=== PATIENT | male | born 1980 | race Caucasian/White ===

== ENCOUNTER 2021-09-30 11:46 | Emergency (ER) | payer SELFPAY ==
[2021-09-30 11:59] VITALS: BP 186/97; PULSE 76; RESP 20; TEMP 36.9; O2SAT 99
[2021-09-30 12:36] VITALS: BP 160/90
--- NOTE | 2021-09-30 12:39 | ED.GENADULT ---
HPI - General Adult General Chief complaint: Back Pain/Injury Stated complaint: Lower Back Pain Source: patient Mode of arrival: ambulatory Limitations: no limitations History of Present Illness HPI narrative: Patient is a 41-year-old morbidly obese male who presents to the urgent care via POV for evaluation of bilateral low back pain that has been present for approximately 4 weeks. He states his back pain has been progressively worsening. He states his back pain is now constant he reports his back pain as, spasms and shooting . Denies taking OTC meds for symptoms. Standing provides some relief. Everything worsens pain. Current pain is 10 on 10 on a pain scale. Of note, patient reports his blood pressure is normal on antihypertensives. He states he took his antihypertensive 1 hour prior to arrival. Related Data Home Medications Medication Instructions Recorded Confirmed lisinopril 5 mg PO DAILY 09/30/21 09/30/21 Allergies Allergy/AdvReac Type Severity Reaction Status Date / Time No Known Allergies Allergy Verified 09/30/21 12:11 Review of Systems Review of Systems: Denies injury. Pertinent negatives fever, chills, sweats, change in appetite, poor p.o. intake, malaise, headache, stiffness, spasms, abdominal pain, nausea, vomiting, diarrhea, constipation, dysuria, urinary frequency/urgency, hematuria, urinary retention, flank pain, bladder/bowel incontinence, skin color changes, deformity, numbness, tingling, loss of sensation, decreased ROM, difficulty with ambulation/coordination, chest pain, heart palpitations/murmurs, and sob. PMFSH Past Medical History Medical History (Updated 09/30/21 @ 12:48 by Mike Rawls, [facility], ) Arthritis Hypertension Low back pain Comments I have reviewed and agree with the patient's past medical, surgical, social, and family hx as documented by the RN. There is no relevant family history pertinent to the presenting complaint. Exam Narrative: GENERAL: Well-appearing, well-nourished, and in no acute distress. HEAD: Normocephalic, atraumatic. NECK: Supple. No lymphadenopathy or nuchal rigidity. No evidence of pain, decreased ROM, or deformity. CHEST: Lung sounds are clear to auscultation in bilateral lung swain. No respiratory distress. HEART: Regular rate and rhythm. No murmur heard. Normal peripheral pulses. ABDOMEN: Soft, nontender, nondistended, normal active bowel sounds in all quadrants. No guarding. No rebound tenderness. No pulsatile or palpable abdominal mass(es). No CVAT EXTREMITIES: Normal range of motion. No edema. BACK: Full ROM. Moderate pain is palpated in bilateral low back. Pain worsens with all movement. No evidence of deformity, spasm, mass, spinal tenderness, or swelling. Unable to perform SLR test due to pain. Ambulates hunched over. Gait is slowed. SKIN: Warm, clammy, no rash. No skin color changes. Excellent turgor. NEURO: No focal deficits. Alert and oriented x3. Course Course Level of Care: Express Care Visit ([employer] SUR[employer]YOR [employer]IL WELL DIRECTIONAL REVIEWED. NOTHING ON FILE. TOKEN NON-FUNCTIONAL WRITTEN SCRIPT FOR DIAZEPAM 5 MG TAB: TAKE 1 TAB PO TID PRN BACK PAIN/SPASM DISP. 15 0RF RN COPIED FOR CHART ) Vital Signs Vital signs: Vital Signs Temperature 98.5 F 09/30/21 11:59 Pulse Rate 76 09/30/21 11:59 Respiratory Rate 20 09/30/21 11:59 Blood Pressure 186/97 H 09/30/21 11:59 Pulse Oximetry 99 09/30/21 11:59 Temperature 98.5 F 09/30/21 11:59 Pulse Rate 76 09/30/21 11:59 Respiratory Rate 20 09/30/21 11:59 Blood Pressure 160/90 H 09/30/21 12:36 Pulse Oximetry 99 09/30/21 11:59 Due to an elevated blood pressure, I had a detailed discussion with the patient and/or guardian regarding the need for follow-up with their primary care provider within the next 3-4 days. Patient verbalized understanding and agreed. Medical Decision Making Differential Diagnosis Differential Diagnosis: Spinal stenosis, radiculopathy/sciatica,cauda equina syndr
== END 2021-09-30 12:56 | disposition home or self-care (01) ==
PROVIDERS: Emergency Provider Nurse Practitioner Family; PCP Family Medicine
DX: M54.50 Low back pain, unspecified (principal); M19.90 Unspecified osteoarthritis, unspecified site; I10 Essential (primary) hypertension
CPT/HCPCS: 99212; G0463

== ENCOUNTER 2021-10-24 05:22 | Emergency (ER) | payer SELFPAY ==
[2021-10-24 05:21] VITALS: BP 202/103; PULSE 85; RESP 19; TEMP 36.8; O2SAT 100
--- NOTE | 2021-10-24 05:53 | ED.EXTPRO ---
HPI - Extremity Problem General Chief complaint: Extremity Problem,Nontraumatic Stated complaint: left leg pain Time Seen by Provider: 10/24/21 05:24 Source: patient Mode of arrival: EMS Limitations: no limitations History of Present Illness HPI Narrative: Patient is a 41-year-old male complaining of it is my sciatic nerve described as left lower back, left buttocks pain, sharp, 10 out of [address] to the foot. Patient states that he was seen at another ER for the same complaint 3 weeks ago. Patient also states that he had a similar episode last year and had to go to physical therapy which resolved the symptoms, has not had a flareup since last month. Patient denies any recent injury. Patient denies any weakness, numbness, incontinence, fever or chills. Patient denies any chest pain, abdominal pain, urinary symptoms, nausea or vomiting. Related Data Home Medications Medication Instructions Recorded Confirmed sulfamethoxazole-trimethoprim 1 tablet PO Q12H 08/29/19 08/29/19 [Bactrim DS] lisinopril 5 mg PO DAILY 09/30/21 09/30/21 naproxen 375 mg PO BID 10/24/21 prednisone 10/24/21 Allergies Allergy/AdvReac Type Severity Reaction Status Date / Time No Known Allergies Allergy Verified 10/24/21 05:26 Review of Systems Review of Systems: All systems reviewed & are unremarkable except as noted in HPI and below Constitutional: Constitutional: Denies body ache(s), Denies chills, Denies excessive sweating, Denies fatigue, Denies fever(s), Denies headache(s), Denies lethargy, Denies malaise, Denies weakness and Denies weight loss Eyes: Eyes: Denies blurry vision, Denies change in vision and Denies loss of vision ENT: Denies dizziness, Denies ear discharge, Denies headache(s), Denies lip swelling, Denies epistaxis, Denies nasal congestion, Denies neck pain, Denies throat swelling and Denies tongue swelling Cardiovascular: Cardiovascular: Denies chest pain, Denies chest pain at rest, Denies chest pain with activity, Denies diaphoresis, Denies rapid heart rate, Denies edema, Denies irregular heart rhythm, Denies lightheadedness, Denies palpitations, Denies dyspnea and Denies dyspnea on exertion Respiratory: Respiratory: Denies chest congestion, Denies cough, Denies hemoptysis, Denies dyspnea and Denies dyspnea on exertion Gastrointestinal: Gastrointestinal: Denies abdominal pain, Denies melena, Denies hematochezia, Denies diarrhea, Denies nausea, Denies vomiting and Denies hematemesis Musculoskeletal: Musculoskeletal: Denies abnormal gait, Denies deformity, Denies joint swelling, Denies limited range of motion, Denies neck pain and Denies numbness Neurologic: Denies Abnormal speech present, Denies abnormal gait, Denies confusion, Denies dizziness, Denies headache(s), Denies focal weakness, Denies loss of vision, Denies numbness, Denies Other visual disturbances, Denies Sensory deficit (Neuro) and Denies weakness Psychiatric: Psychiatric: Denies confusion, Denies depression, Denies auditory hallucinations, Denies homicidal ideation and Denies suicidal ideation Endocrine: Endocrine: Denies cold intolerance, Denies excessive sweating, Denies fatigue, Denies heat intolerance and Denies palpitations Hematologic/Lymphatic: Hematologic/Lymphatic: Denies easy bleeding and Denies easy bruising Allergic/Immunologic: Allergic/Immunologic: Denies lip swelling, Denies throat swelling and Denies tongue swelling PMFSH Past Medical History Medical History Arthritis Hypertension Low back pain Exam Const: General: cooperative, comfortable, no acute distress, well developed, alert and awake; No confusion Nutritional Appearance: obese morbidly obese Orientation/consciousness: oriented to person, oriented to place, oriented to time, patient oriented x3 and No confusion Limitations: no limitations HENMT: Head: normal to inspection, normocephalic and atraumatic Ears:
[2021-10-24] MEDS: HYDROcodone/acetaminophen (*CRX) 5-325 MG TABLET 1 TAB PO (06:25)
[2021-10-24] MEDS: CYCLOBENZAPRINE HCL 10 MG TABLET PO (06:26)
[2021-10-24] MEDS: KETOROLAC 30 MG/ML VIAL (*BKC) IM (06:27)
[2021-10-24 06:45] VITALS: BP 183/95; PULSE 77; RESP 13; O2SAT 99
[2021-10-24] MEDS: HYDROmorphone HCL INJ (*CRX) 1 MG/ML SYR IM (07:10)
[2021-10-24] MEDS: diazePAM INJ (*CRX) 10 MG/2 ML SYRINGE 5 MG IM (07:10)
[2021-10-24 07:51] VITALS: BP 153/98; PULSE 74; RESP 18; O2SAT 99
== END 2021-10-24 07:51 | disposition home or self-care (01) ==
PROVIDERS: Emergency Provider Emergency Medicine; PCP Family Medicine
DX: M54.16 Radiculopathy, lumbar region (principal); I10 Essential (primary) hypertension; M19.90 Unspecified osteoarthritis, unspecified site
CPT/HCPCS: 96372; 99284; A9270; J1100; J1170; J1885; J3360

== ENCOUNTER 2021-11-17 04:04 | Observation (INO) | payer SELFPAY ==
[2021-11-17] VITALS (26 sets, daily range): BP systolic 105–159; BP diastolic 71–95; PULSE 82–134; RESP 12–29; TEMP 36.2–37.1; O2SAT 93–100; BMI 43.7
--- NOTE | ~2021-11-17 | CT_ITS ---
EXAMINATION: CT abdomen pelvis w con DATE: 11/17/2021 05:25 INDICATION: Right upper quadrant pain TECHNIQUE: Computed tomography (CT) of the abdomen and pelvis was performed with 100 cc Omnipaque 350 intravenous contrast. The dose-length product was 1604.84 mGy-cm. Automated exposure control and ite rative reconstruction technique were employed. COMPARISON: None. FINDINGS: There is dependent atelectasis. Heart size normal. No significant pleural or pericardial ef fusion. No significant vascular abnormality. No lymphadenopathy. Small fat-containing inguinal hernia s. No free air or free fluid. Fatty infiltration of the liver. The spleen, pancreas, adrenal glands and kidneys are unremarkable. N ormal appendix. No free air or free fluid. No acute osseous abnormality. IMPRESSION: 1. No acute abdominal abnormality. Reviewed, dictated and finalized at location A.
--- NOTE | ~2021-11-17 | US_ITS ---
US abdomen limited INDICATION: Right upper quadrant pain, nausea, vomiting and diarrhea PROCEDURE: Realtime right upper abdominal ultrasound. COMPARISON: No prior studies for comparison. FINDINGS: The pancreas is normal without focal mass or pancreatic ductal dilation. Liver echotexture is increased, consistent with fatty infiltration. There is normal directional flow in the portal ve in. Gallbladder is distended and contains gallstones. Common bile duct measures 5.7 mm. No sonographic Lorenzana's sign. IMPRESSION: 1: Cholelithiasis. 2: Fatty infiltration of the liver. Reviewed, dictated and finalized at location A.
--- NOTE | 2021-11-17 04:23 | ED.ABDPAIN ---
HPI - Abdominal Pain General Chief Complaint: Abdominal Pain <Derik Gee MD - Last Filed: 11/17/21 19:28> Stated Complaint: Abd pain, n/v <Derik Gee MD - Last Filed: 11/17/21 19:28> Time Seen by Provider: 11/17/21 04:10 <Derik Gee MD - Last Filed: 11/17/21 19:28> Source: patient, family and RN notes reviewed <Derik Gee MD - Last Filed: 11/17/21 19:28> Mode of arrival: ambulatory <Derik Gee MD - Last Filed: 11/17/21 19:28> Limitations: no limitations <Derik Gee MD - Last Filed: 11/17/21 19:28> History of Present Illness HPI narrative: 41-year-old male presenting to the emergency department for evaluation of right upper quadrant pain that has been present since approximately 2:00 am. Patient states that he had fried fish last night and woke up with intense right upper quadrant pain with associated nausea vomiting and diarrhea. Patient states that a few weeks ago he had similar symptoms after eating something from [employer]. Patient initially suspected this was food poisoning. Patient does not have a personal history of gallbladder disease or dysfunction but does have a significant family history of gallbladder disease. Denies any prior history of kidney stones. Patient has had no abdominal surgeries. <Derik Gee MD - Last Filed: 11/17/21 19:28> Related Data Home Medications: Home Medications Medication Instructions Recorded Confirmed lisinopril-hydrochlorothiazide 10 tablet PO DAILY 11/17/21 11/17/21 [Zestoretic] <Derik Gee MD - Last Filed: 11/17/21 19:28> Allergies/Adverse Reactions: Allergies Allergy/AdvReac Type Severity Reaction Status Date / Time No Known Allergies Allergy Verified 10/24/21 05:26 <Derik Gee MD - Last Filed: 11/17/21 19:28> Review of Systems Review of Systems: CONSTITUTIONAL: Denies fever, chills, or sweats. EYES: Denies visual changes, redness, or discharge. ENT: Denies rhinorrhea, congestion, sore throat, or otalgia. CARDIOVASCULAR: Denies chest pain, palpitations, or edema. RESPIRATORY: Denies cough or dyspnea. GASTROINTESTINAL: Right upper quadrant abdominal pain associated nausea vomiting and diarrhea. GENITOURINARY: Denies dysuria or hematuria. SKIN: Denies rash or itching. MUSCULOSKELETAL: Denies back pain, joint pain, or myalgia. NEUROLOGIC: Denies headache, numbness, or weakness. <Derik Gee MD - Last Filed: 11/17/21 19:28> All systems reviewed & are unremarkable except as noted in HPI and below <Derik Gee MD - Last Filed: 11/17/21 19:28> PMFSH Past Medical History Medical History: Medical History (Updated 11/17/21 @ 12:53 by Corinne Cartwright PA-C) Arthritis Hypertension Morbid obesity with BMI of 40.0-44.9, adult Psoriasis <Derik Gee MD - Last Filed: 11/17/21 19:28> Surgical History Surgical History: Surgical History (Updated 11/17/21 @ 12:52 by Corinne Cartwright PA-C) History of cervical spinal surgery History of orthopedic surgery Right foot and ankle surgery <Derik Gee MD - Last Filed: 11/17/21 19:28> Family History Family History: Family History Father Cholelithiasis <Derik Gee MD - Last Filed: 11/17/21 19:28> Social History Social History: Social History (Updated 11/17/21 @ 12:53 by Corinne Cartwright PA-C) Social History: Surrogate decision maker: Popeye Spencer, father. Code status: Full code. Smoking status: Former smoker Alcohol intake: never Substance use: never Spiritual care concerns: No <Derik Gee MD - Last Filed: 11/17/21 19:28> Exam Narrative: APPEARANCE: Well appearing, no pain, no distress, well-nourished. HEAD: normocephalic, atraumatic. EYES: PERRLA/EOMI, conjunctivae clear. NOSE: Normal no drainage NECK: Supple. No adenopathy, no masses. RESPIRATORY: Airway
[2021-11-17 04:29] LABS: Basophils Absolute Auto 0.2 K/mm3 (0.0-0.1); Basophils Percent Auto 0.7 % (0.2-1.2); Eosinophils Absolute Auto 0.8 K/mm3 (0-0.3); Eosinophils Percent Auto 3.2 % (0-4.4); Hematocrit 50.1 % (42.0-52.0); Hemoglobin 17.7 g/dL (14.0-18.0); Immature Granulocyte Absolute 0.17 K/mm3 (0.00-0.031); Immature Granulocyte Percent A 0.7 % (0-0.5); Lymphocytes Absolute Auto 4.47 K/mm3 (0.9-3.2); Lymphocytes Percent Auto 18.4 % (18.3-44.2); Mean Corpuscular HGB Conc 35.3 g/dl (32-36); Mean Corpuscular Volume 87.7 fl (80-100); Mean Platelet Volume 10.3 fl (7.4-10.4); Monocytes Absolute Auto 1.5 K/mm3 (0.1-0.6); Neutrophils Absolute Auto 17.3 K/mm3 (1.3-6.7); Platelet Count Result 368 k/mm3 (150-375); Red Blood Count 5.71 M/mm3 (4.6-6.20); Red Cell Distribution Width 12.7 % (11.5-14.5); White Blood Count 24.3 K/mm3 (4.5-10.0)
[2021-11-17 04:40] LABS: Lipase 162 U/L (23-300)
[2021-11-17 04:41] LABS: Alanine Aminotransferase 75 U/L (4-50); Alkaline Phosphatase 106 U/L (38-126); Anion Gap 15 mmol/L (8-16); Aspartate Amino Transferase 60 U/L (17-59); Bilirubin,Total 1.3 mg/dL (0.2-1.3); Blood Urea Nitrogen 10 mg/dL (9-20); Calcium 9.7 mg/dL (8.4-10.2); Carbon Dioxide 18 mmol/L (22-30); Chloride 107 mmol/L (98-107); Estimated CRCL calculation 128 ml/min; Estimated Glomerular Filt Rate > 60; Glucose 181 mg/dL (65-110); Potassium 4.1 mmol/L (3.4-5.0); Sodium 140 mmol/L (137-145)
[2021-11-17 04:44] LABS: Add Urine Microscopic? YES; Appearance Urine Cloudy (Clear); Bilirubin Urine Negative (Negative); Blood Urine Negative (Negative); Color Urine Amber (Yellow); Glucose Urine UA Negative (Negative); Ketones Urine Negative (Negative); Leukocyte Esterase Ur Negative LEU/UL (Negative); Mucus Urine Moderate /lpf; Nitrate Urine Negative (Negative); Protein Urine 2+ mg/dL (Negative); Specific Grav Ur 1.024 (1.001-1.035); Squamous Epithelial Cell Urine Rare /hpf (Few); Urobilinogen Urine Negative mg/dL (<2.0)
[2021-11-17] MEDS: ONDANSETRON INJ 4 MG/2 ML VIAL IV PUSH (04:44)
[2021-11-17] MEDS: HYDROmorphone HCL INJ (*CRX) 1 MG/ML SYR IV PUSH (04:44)
[2021-11-17] MEDS: SODIUM CHLORIDE 0.9% IV 1,000 ML 999 ML IV CONT (04:44)
[2021-11-17] MEDS: METOCLOPRAMIDE HCL INJ 10 MG/2 ML VIAL IV PUSH (04:46)
--- NOTE | 2021-11-17 05:00 | PC.NURSE ---
Pt O2 sat 89% on room air after Dilaudid admin, pt placed on 2 L NC O2 and sat increased to 93%
--- NOTE | 2021-11-17 05:06 | PC.NURSE ---
Pt to CT scan via stretcher at this time.
--- NOTE | 2021-11-17 10:06 | ADMGEN ---
This patient, Popeye Spencer Jr., was admitted to [address] [place] [address] Room 310-01 at 1000. Patient/family oriented to hospital policies and general routines including ID bracelet, bed and alarms, visiting hours, pain management, procedures, bathroom and other care routines, personal items, smoking policy, room service/diet, and visiting hours. Information on how to activate the Rapid Response Team has been discussed. Patient/Family are encouraged to report perceived risks to care and to ask questions if they do not understand what they are told or what they should do.
[2021-11-17] MEDS: SODIUM CHLORIDE 0.9% IV 1,000 ML 125 ML IV CONT (10:23)
--- NOTE | 2021-11-17 10:53 | PM.CNGS ---
Assessment and Plan Assessment and plan (1) Acute cholecystitis: Code(s): K81.0 - Acute cholecystitis Status: Acute Assessment and Plan: Patient has an elevated white count at 24,000 along with right upper quadrant pain and an ultrasound showing definite gallstones with dilation of the gallbladder. Since his pain just started early this morning he is probably early in the acute phase of acute cholecystitis with cholelithiasis. Because of this, the risk, benefits, possible complications of a laparoscopic, possible open cholecystectomy have been described to the patient. He understands we may need to do a cholangiogram if there is severe inflammation. Otherwise, I would recommend that he have his laparoscopic cholecystectomy done fairly urgently since with his size it may be a fairly difficult undertaking. Risks including bleeding, infection, possible injury to surrounding organs such as the duodenum, common bile duct and the nearby colon Have been described and he seems to understand wished to proceed. (2) Hypertension: Code(s): I10 - Essential (primary) hypertension Status: Acute Assessment and Plan: Patient on lisinopril at home. (3) Low back pain: Qualifiers: Back pain laterality: bilateral Chronicity: acute Sciatica presence: unspecified whether sciatica present Qualified Code(s): M54.50 - Low back pain, unspecified Code(s): M54.50 - Low back pain, unspecified Status: Acute (4) Psoriasis (a type of skin inflammation): Code(s): L40.9 - Psoriasis, unspecified Status: Acute Assessment and Plan: Patient occasionally uses Lotrimin cream or Aquaphor. There is some of this in and near his umbilicus so I will try to make the incision just up above the area of inflammation of the skin in that area. (5) Morbid obesity with BMI of 40.0-44.9, adult: Code(s): E66.01 - Morbid (severe) obesity due to excess calories; Z68.41 - Body mass index [BMI] 40.0-44.9, adult Status: Acute Assessment and Plan: This contributes to the possible morbidity of the operation and may make a somewhat more difficult but if the inflammation significantly worsens it could be even worse. Postop. Will discuss this with the patient encouraged him to stay on low-fat diet lose weight. History of Present Illness Consult details Consult date: 11/17/21 Reason for consult: gallstones Requesting physician: Ra Roe MD Narrative: Mr. Spencer is a 41-year-old male who presented early this AM to the emergency department for evaluation of right upper quadrant pain that has been present since approximately 2:00 am. Patient states that he had fried fish last night and woke up with intense right upper quadrant pain with associated nausea vomiting and diarrhea at 2AM. Patient states that a few weeks ago he had similar symptoms after eating something from [employer] (possibly a fried chicken sandwich). Patient initially suspected this was food poisoning, however with this new episode after the fried fish he now believes that it is is gallbladder. Ultrasound workup in the ED did show gallstones and a dilated gallbladder without a Lorenzana sign. CT scan was not able to detect the gallstones and was otherwise normal. Patient's white blood cell count however in the ED was 24,000. Patient does not have a personal history of gallbladder disease or dysfunction but does have a significant family history of gallbladder disease. Review of Systems Review of Systems: All systems reviewed & are unremarkable except as noted in HPI and below (HPI) Constitutional: Constitutional: Reports chills, Reports fever(s) and Reports malaise Eyes: Eyes: Reports no additional eye complaints ENT: Reports Normal hearing present and Denies dizziness Cardiovascular: Cardiovascular: Reports no additional cardiovascular complaints, Denies chest pain and Denies irregular heart rhythm Respiratory: Respi
--- NOTE | 2021-11-17 11:36 | WPDANESEPP ---
Anes - Eval Pre Procedure Procedure: Operation Date: 11/17/21 11:45 Proposed Procedures p Laparoscopic Cholecystectomy,Possible IOC,s, Possible Open - Al Cheng MD Date/Time: 11/17/21 11:36 Surgeon: Prosper Pre Op Diagnosis: Cholecystitis Patient Data Age: 41 Gender: M Height: 1.83 m Weight: 146.3 kg Last Vital Signs Temp 36.2 C L 11/17/21 10:05 Pulse 85 11/17/21 11:30 Resp 20 11/17/21 11:30 BP 132/75 11/17/21 11:30 Pulse Ox 95 11/17/21 11:30 Allergies Allergy/AdvReac Type Severity Reaction Status Date / Time No Known Allergies Allergy Verified 10/24/21 05:26 Home Medications Medication Instructions Recorded Confirmed Type ibuprofen 800 mg PO TID PRN #30 tablet 08/29/19 11/17/21 Rx lisinopril 10 mg PO DAILY 09/30/21 11/17/21 History Laboratory Tests 11/17/21 11/17/21 11/17/21 04:19 04:19 04:21 WBC 24.3 K/mm3 H K/mm3 (4.5-10.0) RBC 5.71 M/mm3 M/mm3 (4.6-6.20) Hgb 17.7 g/dL g/dL (14.0-18.0) Hct 50.1 % % (42.0-52.0) MCV 87.7 fl fl (80-100) MCH 31.0 pg pg (26-34) MCHC 35.3 g/dl g/dl (32-36) RDW 12.7 % % (11.5-14.5) Plt Count 368 k/mm3 k/mm3 (150-375) MPV 10.3 fl fl (7.4-10.4) Immature Gran % (Auto) 0.7 % H % (0-0.5) Neut % (Auto) 71.0 % % (45.5-73.1) Lymph % (Auto) 18.4 % % (18.3-44.2) [place] % (Auto) 6.0 % % (2.6-8.5) Eos % (Auto) 3.2 % % (0-4.4) Baso % (Auto) 0.7 % % (0.2-1.2) Lymph # (Auto) 4.47 K/mm3 H K/mm3 (0.9-3.2) [place] # (Auto) 1.5 K/mm3 H K/mm3 (0.1-0.6) Eos # (Auto) 0.8 K/mm3 H K/mm3 (0-0.3) Baso # (Auto) 0.2 K/mm3 H K/mm3 (0.0-0.1) Abs Immat Gran (auto) 0.17 K/mm3 H K/mm3 (0.00-0.031) Absolute Neuts (auto) 17.3 K/mm3 H K/mm3 (1.3-6.7) Absolute Nucleated RBC 0.0 K/mm3 K/mm3 (0.0-0.012) Nucleated RBC % 0.0 % % (0.0-0.2) Sodium 140 mmol/L mmol/L (137-145) Potassium 4.1 mmol/L mmol/L (3.4-5.0) Chloride 107 mmol/L mmol/L (98-107) Carbon Dioxide 18 mmol/L L mmol/L (22-30) Anion Gap 15 mmol/L mmol/L (8-16) BUN 10 mg/dL mg/dL (9-20) Creatinine 1.00 mg/dL mg/dL (0.7-1.3) Estim Creat Clear Calc 128 ml/min ml/min Estimated GFR > 60 (59 - ) Glucose 181 mg/dL H mg/dL (65-110) Lactic Acid Calcium 9.7 mg/dL mg/dL (8.4-10.2) Total Bilirubin 1.3 mg/dL mg/dL (0.2-1.3) AST 60 U/L H U/L (17-59) ALT 75 U/L H U/L (4-50) Alkaline Phosphatase 106 U/L U/L (38-126) Total Protein 9.0 g/dL H g/dL (6.3-8.2) Albumin 5.0 g/dL g/dL (3.5-5.1) Lipase 162 U/L U/L (23-300) Urine Color Urine Appearance Urine pH Ur Specific [place] Urine Protein Urine Glucose (UA) Urine Ketones Ur Blood (Man) Urine Nitrate Urine Bilirubin Urine Urobilinogen Leukocyte Esterase Rfl Urine RBC Urine WBC Ur Squamous Epith Cells Urine Mucus 11/17/21 11/17/21 04:28 04:40 WBC RBC Hgb Hct MCV MCH MCHC RDW Plt Count MPV Immature Gran % (Auto) Neut % (Auto) Lymph % (Auto) [place] % (Auto) Eos % (Auto) Baso % (Auto) Lymph # (Auto) [place] # (Auto) Eos # (Auto) Baso # (Auto) Abs Immat Gran (auto) Absolute Neuts (auto) Absolute Nucleated RBC Nucleated RBC % Sodium Potassium Chloride
--- NOTE | 2021-11-17 11:47 | P.PNAN_ITS ---
Anes - Eval Final PreProcedure Day of Procedure 11/17/21 11:47 Patient weight: morbidly obese Heart: regular rate and rhythm Lungs: clear to auscultation and normal air movement Airway: Mallampati scale class III Neurological: alert and oriented Last oral intake: >/= 8 hours ASA classification: III Emergent: no Anesthetic plan: proceed Anesthesia type and monitoring: general ETT and standard monitoring Results Review: All pre-operative results and documents have been reviewed as part of the pre-operative evaluation. Informed Consent: The patient's anesthetic plan and its attendant risks and jaunis efits were discussed with the patient/family/POA. Questions were solicited and answers provided to the satisfaction of the patient/family/POA.
--- NOTE | 2021-11-17 12:42 | PM.IMHP ---
H&P: HPI History of Present Illness Date/Time: 11/17/21 12:40 Chief Complaint: Abdominal pain. Narrative: This is a 41-year-old male with hypertension who presented to the emergency department for evaluation of abdominal pain. He had fried fish for dinner last night and woke up at about 02:00 with intense right upper quadrant pain associated with nausea, vomiting, and diarrhea. He had similar symptoms a few weeks ago after eating [employer] and he had initially attributed that to food poisoning. Abdominal ultrasound done in the emergency department showed gallstones with a dilated gallbladder and with a 24,000 white count he is being admitted for suspected acute cholecystitis. ON LICENSE OF [facility] Past Medical History Medical History (Updated 11/17/21 @ 12:53 by Corinne Cartwright PA-C) Arthritis Hypertension Morbid obesity with BMI of 40.0-44.9, adult Psoriasis Surgical History Surgical History (Updated 11/17/21 @ 12:52 by Corinne Cartwright PA-C) History of cervical spinal surgery History of orthopedic surgery Right foot and ankle surgery Family History Family History Father Cholelithiasis Social History Social History (Updated 11/17/21 @ 12:53 by Corinne Cartwright PA-C) Social History: Surrogate decision maker: Popeye Spencer, father. Code status: Full code. Smoking status: Former smoker Alcohol intake: never Substance use: never Spiritual care concerns: No Meds Home Medications and Allergies Home Medications Medication Instructions Recorded Confirmed Type ibuprofen 800 mg PO TID PRN #30 tablet 08/29/19 11/17/21 Rx lisinopril 10 mg PO DAILY 09/30/21 11/17/21 History Allergies Allergy/AdvReac Type Severity Reaction Status Date / Time No Known Allergies Allergy Verified 10/24/21 05:26 Vital Signs Vital Signs - 24 hr 11/17/21 04:13 11/17/21 04:50 11/17/21 04:51 Temperature 98.0 F Pulse Rate 134 H 110 H 108 H Respiratory Rate 20 20 19 Blood Pressure 146/95 H 105/88 Pulse Oximetry 99 93 97 11/17/21 05:00 11/17/21 05:01 11/17/21 05:05 Temperature Pulse Rate 104 H 100 103 H Respiratory Rate 21 H 12 26 H Blood Pressure 125/80 105/88 Pulse Oximetry 95 93 11/17/21 05:21 11/17/21 05:30 11/17/21 05:45 Temperature Pulse Rate 103 H 99 97 Respiratory Rate 29 H 22 H 23 H Blood Pressure Pulse Oximetry 97 96 98 11/17/21 06:00 11/17/21 06:41 11/17/21 07:49 Temperature Pulse Rate 94 96 93 Respiratory Rate 20 25 H 25 H Blood Pressure 139/79 130/72 Pulse Oximetry 97 97 98 11/17/21 07:52 11/17/21 09:53 11/17/21 10:05 Temperature 97.1 F L Pulse Rate 92 83 Respiratory Rate 22 H 20 Blood Pressure 131/71 128/71 Pulse Oximetry 98 98 100 11/17/21 10:15 11/17/21 10:43 11/17/21 11:30 Temperature Pulse Rate 85 Respiratory Rate 20 Blood Pressure 132/75 Pulse Oximetry 100 93 95 Exam Narrative: General: HEENT: Normocephalic, atraumatic. PERRL, EOMI. Sclerae anicteric. Oral mucosa moist. Oropharynx clear. Neck: Supple. Respiratory: Lungs are clear to auscultation bilaterally. Cardiovascular: Regular rate and rhythm with S1-S2. No murmur, rub, or gallop. Gastrointestinal: Abdomen is soft, nontender, and nondistended with positive bowel sounds. No organomegaly. Skin: Warm and dry. No rash or lesions on limited exam. Extremities: No cyanosis, clubbing, or edema. Radial and pedal pulses intact. Neurological: Alert. Cranial nerves 2-12 are grossly intact. Speech is clear. No facial asymmetry. No gross focal deficits to casual conversation. Psychiatric: Pleasant and cooperative with normal mood and affect. Judgment and insight intact. H&P: Results Labs Labs: Short CBC 11/17/21 Range/Units 04:19 WBC 24.3 H (4.5-10.0) K/mm3 Hgb 17.7 (14.0-18.0) g/dL Hct 50.1 (42.0-52.0) % Plt Count 368 (150-375) k/mm3 [facility] 11/17/21 04:19 Sodium 140 Potass
[2021-11-17] MEDS: BUPIVACAINE/EPINEPHRINE 0.25% 10 ML VIAL 30 ML INFILTRATE (12:45)
--- NOTE | 2021-11-17 12:45 | PM.SD2 ---
Same Day Admit/Disch: HPI History of Present Illness Chief complaint: Abdominal pain. Narrative: This is a 41-year-old male with hypertension who presented to the emergency department for evaluation of abdominal pain. He had fried fish for dinner last night and woke up at about 02:00 with intense right upper quadrant pain associated with nausea, vomiting, and diarrhea. He had similar symptoms a few weeks ago after eating [employer] which he attributed to possible food poisoning. Abdominal ultrasound done in the emergency department showed gallstones with a dilated gallbladder and with a white blood cell count of 24,000 he was taken to the OR for suspected acute cholecystitis per Dr. Cheng. His surgery was performed under general anesthesia with no immediate complications documented an estimated blood loss of 10 mL. There was mild inflammatory adhesions along the lower 3rd of the gallbladder with palpable stones in the gallbladder upon removal. Postoperatively he did really well and was tolerating a diet with good pain control and Dr. Cheng okayed him for discharge. I saw the patient again just prior to discharge and he was up and anxious to be going home. He complained only of mild discomfort at the incision sites and he was having no nausea or vomiting. He also denies fever, chills, sweats, chest pain, and shortness of breath. [facility] Past Medical History Medical History (Updated 11/17/21 @ 12:53 by Corinne Cartwright PA-C) Arthritis Hypertension Morbid obesity with BMI of 40.0-44.9, adult Psoriasis Surgical History Surgical History (Updated 11/17/21 @ 12:52 by Corinne Cartwright PA-C) History of cervical spinal surgery History of orthopedic surgery Right foot and ankle surgery Family History Family History Father Cholelithiasis Social History Social History (Updated 11/17/21 @ 12:53 by Corinne Cartwright PA-C) Social History: Surrogate decision maker: Popeye Spencer, father. Code status: Full code. 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 Weight: 46.3 kg. BMI: 43.7. HEENT: PERRL, EOMI. Sclerae anicteric. Tacky mucous membranes. Some missing teeth. Neck: Supple. Respiratory: Lungs are clear to auscultation bilaterally. Cardiovascular: Regular rate and rhythm with S1-S2. Gastrointestinal: Abdomen is soft, obese, and nondistended. Multiple incisions consistent with recent laparoscopy are well approximated and without bruising or discharge. He is mildly tender to palpation throughout the abdomen with no guarding or rebound tenderness. Bowel sounds are present. Skin: Warm and dry. Psoriatic plaques noted on the knees, hands, and elbows. Extremities: No cyanosis, clubbing, or significant edema. Radial and pedal pulses intact. Neurological: Alert. Cranial nerves 2-12 are grossly intact. No gross focal deficits to casual conversation. Psychiatric: Pleasant and cooperative with normal mood and affect. Judgment and insight intact. DS: Data Data Completed and Pending Pending studies at discharge: Pending at discharge 11/17/21 12:36 Surgical [PTH] Routine Labs on day of discharge: Labs from last 24 hours 11/17/21 11/17/21 11/17/21 17:02 17:01 04:40 WBC RBC Hgb Hct MCV MCH MCHC RDW Plt Count MPV Immature Gran % (Auto)
[2021-11-17] MEDS: LACTATED RINGERS 1,000 ML 30 ML IV CONT (13:26)
--- NOTE | 2021-11-17 14:39 | W.PM.PROC2 ---
Procedure Note - Detailed Date of Procedure 11/17/21 Pre-op Diagnosis acute Cholecystitis with cholelithiasis Post-op Diagnosis Same Procedure Performed laparoscopic cholecystectomy Surgeon Al Cheng MD [employer] [place], [place] [facility] assist Anesthesia General Indications The patient woke up last evening after as fried fish meal with severe right upper quadrant pain, nausea and vomiting. He presented to the ED and had a white count [address]. Therefore after CT scan did not show much abnormal and ultrasound confirmed gallstones and what appeared to be a dilated gallbladder consistent with acute cholecystitis. Findings Mild inflammatory adhesions along the lower 3rd of the gallbladder. Palpable stones in the gallbladder upon removal. Description of Procedure Procedure Details: Patient was seen preoperatively in the holding area and risks, benefits and alternatives confirmed. Patient was taken to the operating room and general anesthesia was induced. A time out was then preformed with the surgery team confirming patient and site of surgery. The abdomen was prepped and draped in the usual sterile fashion. Incision was made just above the umbilicus Starting right at the edge where he had abnormal skin related to his psoriasis. Most of this incision was made on normal skin. Two stay sutures of O- Vicryl were used to elevate the mid-line fascia beneath the umbilicus and a small incision was made under direct vision. The peritoneum was entered. The 12 mm Tsai cannula was introduced under direct vision. First under low flow and then under high flow the abdomen was insufflated with carbon dioxide never exceeding a pressure of 14. Three 5 mm trocars were then introduced under direct vision. The following trocars were introduced under direct vision: a mm in the epigastrium and two 5 mm trocars along the right costal margin. There were significant adhesions of the omentum to the underside of the gallbladder and these were taken down with blunt and sharp dissection. Bovie cautery was used for hemostasis. The gall bladder was grasped and the cystic duct and artery were dissected free and I carefully identified a window of safety with only two other structures in the area being the cystic duct and the cystic artery. I then used a mm endo-clip meteorological aide to place 2 clips on the patient's side 1 on the gallbladder side on the cystic artery and just 1 clip on the gallbladder side of the cystic duct. A small hole was made in the cystic duct with endoshears and a cholagio-cath introduced. This was held in place with a single 5 mm clip. A cholangiogram was obtained revealing free flow into the cystic duct, common bile duct, common hepatic, right and left hepatic ducts with free flow into the duodenum with no filling defects in the intra nor extrahepatic biliary tree and no dilation. The catheter was removed and the cystic duct was clipped with a 5 mm endoclip-meteorological aide placing 2 clips on the patient's side of the cystic duct. The cystic duct was then transected. The cystic artery was also transected at this point. The gall bladder was removed using electrocautery and then removed using a large 10 mm grasper via the umbilical incision. The trocars were removed visualizing hemostasis and the remaining gas evacuated. The large trocar site at the umbilicus was closed with several interrupted sutures of 0 Vicryl because of the increased size of the opening at the umbilicus required to remove the gallbladder. The 2 stay sutures mentioned above on either side of the fascia were also tied together to help approximate this midline fascia. Further local anesthetic was placed into each incision for postop pain control. The skin incisions were closed with subcuticular suture of 4-0 Monocryl. Surgical glue then was applied to all the incisions. Patient tolerated the procedure well was taken to the recovery room in good condition Implants none Estimated Blood Loss 10 Drain
[2021-11-17 17:04] LABS: Glucose Point of Care 152 mg/dl (65-105)
[2021-11-17 17:21] LABS: Hemoglobin A1C 5.7 % (<5.7)
[2021-11-17] MEDS: HYDROcodone/acetaminophen (*CRX) 5-325 MG TABLET 1 TAB PO (17:39)
== END 2021-11-17 20:00 | disposition home or self-care (01) ==
LOC: ANHED 08:51 → ANH3MEDSUR 10:04
PROVIDERS: Physician Assistant; Surgery; Admitting Provider Family Medicine; Emergency Provider Emergency Medicine; PCP Family Medicine; Visit Provider Family Medicine
PROC: 0FT44ZZ Resection of Gallbladder, Percutaneous Endoscopic Approach (ICD-10-PCS; CPT 47562; principal; 2021-11-17 11:45)
DX: K80.10 Calculus of gallbladder with chronic cholecystitis without obstruction (principal); I10 Essential (primary) hypertension; E66.01 Morbid (severe) obesity due to excess calories; L40.9 Psoriasis, unspecified; M19.90 Unspecified osteoarthritis, unspecified site; M54.50 Low back pain, unspecified; R73.9 Hyperglycemia, unspecified; Z68.41 Body mass index [BMI] 40.0-44.9, adult
CPT/HCPCS: 47563; 36415; 74177; 76705; 80053; 81001; 82948; 83036; 83605; 83690; 85025; 88304; 96361; 96365; 96375; 99285; A9270; G0378; G0379; J0330; J1100; J1170; J2250; J2405; J2543; J2704; J2710; J2765; J7030; J7120; Q9966; Q9967

== ENCOUNTER 2022-02-04 14:11 | Emergency (ER) | payer SELFPAY ==
--- NOTE | ~2022-02-04 | XR_ITS ---
XR chest 2V DATE: 02/04/2022 14:40 INDICATION: Cough, shortness of breath TECHNIQUE: 2 views COMPARISON: 08/18/2018 two-view chest FINDINGS: Normal heart size. No hilar or mediastinal enlargement. No pulmonary infiltrate or consolid ation, pleural effusion or pulmonary vascular congestion or pneumothorax. Radiopaque devices overlie the lower cervical area, possibly associated with intervertebral fusion at C5-6 and C6-7. Degenerative spurring of the thoracic spine. IMPRESSION: No active cardiopulmonary disease Reviewed, dictated and finalized at location A.
[2022-02-04 14:27] VITALS: BP 131/74; PULSE 91; RESP 18; TEMP 37.6; O2SAT 97
--- NOTE | 2022-02-04 14:33 | ED.URI ---
HPI - URI/Sore Throat General Chief Complaint: Upper Respiratory Infection Stated Complaint: cough Time Seen by Provider: 02/04/22 14:33 Source: patient Mode of arrival: ambulatory Limitations: no limitations History of Present Illness HPI Narrative: 41-year-old male presents with complaint of cough, chest congestion, coughing up green sputum for 4 days. Today where he reports that while at work he began feeling short of breath. Afebrile. Not taking any [id number] medications to treat his symptoms. Stop smoking 14 months ago after having COVID. Reports no lung or breathing issues since having COVID. He is speaking in full sentences but has mild labored breathing. All systems reviewed and negative except as noted above. Related Data Home Medications Medication Instructions Recorded Confirmed lisinopril 10 1 tablet DAILY 02/04/22 02/04/22 mg-hydrochlorothiazide 12.5 mg tablet Allergies Allergy/AdvReac Type Severity Reaction Status Date / Time No Known Allergies Allergy Verified 02/04/22 14:36 Review of Systems Review of Systems: CONSTITUTIONAL: Denies fever, chills, or sweats. Reports fatigue EYES: Denies visual changes, redness, or discharge. ENT: Denies rhinorrhea, congestion, sore throat, or otalgia. CARDIOVASCULAR: Denies chest pain, palpitations, or edema. RESPIRATORY: Reports cough, chest congestion and dyspnea. GASTROINTESTINAL: Denies abdominal pain, nausea, vomiting, or diarrhea. GENITOURINARY: Denies dysuria or hematuria. SKIN: Denies rash or itching. MUSCULOSKELETAL: Denies back pain, joint pain, or myalgia. NEUROLOGIC: Denies headache, numbness, or weakness. PSYCHIATRIC: Denies anxiety or depression. All other systems reviewed are negative, except as documented in HPI. FORMERLY [facility], [facility] Past Medical History Medical History (Updated 02/04/22 @ 15:19 by Maria Luisa Esparza NP) Arthritis Hypertension Morbid obesity with BMI of 40.0-44.9, adult Psoriasis Surgical History Surgical History (Updated 11/17/21 @ 12:52 by Corinne Cartwright PA-C) History of cervical spinal surgery History of orthopedic surgery Right foot and ankle surgery Family History Family History Father Cholelithiasis Social History Social History (Updated 11/17/21 @ 12:53 by Corinne Cartwright PA-C) Social History: Surrogate decision maker: Popeye Spencer, father. Code status: Full code. Smoking status: Former smoker Alcohol intake: never Substance use: never Spiritual care concerns: No Comments At time of signature, agree with nursing past medical, surgical, social and family history. There is no relevant family history pertinent to the presenting complaint. Exam Narrative: GENERAL: This is a well-nourished, well-developed patient, in no apparent distress. HEAD: normocephalic, atraumatic. EYES: PERRL. Sclera clear/white. Vision is grossly intact. EARS: External ears normal, auditory canals clear and without drainage, TMs normal without perforation. Hearing grossly intact. NOSE: External nose normal with no obvious nasal discharge, nares without redness, no rhinorrhea. THROAT: Mucous membranes moist, posterior pharynx clear. NECK: Neck supple, non-tender without lymphadenopathy, masses or thyromegaly. CARDIOVASCULAR: Regular rate and rhythm without murmurs, gallops, or rubs. RESPIRATORY: Coarse, congested lung sounds throughout all lung swain. Mildly labored breathing. SKIN: warm, Dry, intact with no suspicious lesions or rash, good texture and turgor. NEURO: awake, alert, and oriented to person, place and time. There were no obvious focal neurologic abnormalities. EXTREMITIES: Normal range of motion to all extremities. Course Course Level of Care: Express Care Visit Reevaluation(s) Reevaluation #1: Patient continues to have coarse lung sounds throughout all lung swain after albuterol neb. Labored breathing has resolved. Date:
[2022-02-04] MEDS: predniSONE 20 MG TABLET 40 MG PO (14:51)
[2022-02-04] MEDS: ALBUTEROL SULFATE NEB 2.5 MG/3 ML INH INHALATION (14:52)
== END 2022-02-04 15:23 | disposition home or self-care (01) ==
PROVIDERS: Emergency Provider Nurse Practitioner Family; PCP Family Medicine
DX: J06.9 Acute upper respiratory infection, unspecified (principal); Z20.822 Contact with and (suspected) exposure to COVID-19; M19.90 Unspecified osteoarthritis, unspecified site; I10 Essential (primary) hypertension; E66.01 Morbid (severe) obesity due to excess calories; Z68.41 Body mass index [BMI] 40.0-44.9, adult; L40.9 Psoriasis, unspecified
CPT/HCPCS: 71046; 87426; 99213; C9803; G0463; J7512

== ENCOUNTER 2022-05-19 15:29 | Emergency (ER) | payer OTHER, SELFPAY ==
[2022-05-19 15:48] VITALS: BP 160/92; PULSE 65; RESP 18; TEMP 36.5; O2SAT 100
--- NOTE | 2022-05-19 16:07 | ED.BACK ---
HPI - Back Pain/Injury General Chief Complaint: Back Pain/Injury Stated Complaint: back pain Time Seen by Provider: 05/19/22 15:36 Source: patient Mode of arrival: ambulatory Limitations: no limitations History of Present Illness HPI Narrative: 41-year-old male presents to [facility] with complaints of mid back pain since yesterday morning. Patient reports that he feels that the pain is getting worse. Patient reports that he has been taking [id number] Tylenol with minimal relief. Last dose of Tylenol was prior to arrival. Patient denies radiating pains, numbness, tingling, bowel or bladder problems. Patient reports that he has a history of low back pains but denies similar mid back pain in the past. Patient denies injury to his back. Patient denies urinary symptoms, fever, body aches or chills. MD elicited complaint: back pain Pertinent past history: prior back pain Onset (ago): day(s) (2) Similar Symptoms Previously: No Quality: spasming Location: thoracic spine Radiation: none Exacerbating factors: movement, walking, deep breaths and lifting Relieving factors: none Associated symptoms: denies other symptoms Treatments prior to arrival: NSAIDS and acetaminophen Related Data Home Medications Medication Instructions Recorded Confirmed lisinopril 10 1 tablet DAILY 02/04/22 05/19/22 mg-hydrochlorothiazide 12.5 mg tablet Allergies Allergy/AdvReac Type Severity Reaction Status Date / Time No Known Allergies Allergy Verified 05/19/22 15:56 Review of Systems Constitutional: Constitutional: Denies chills, Denies fatigue, Denies fever(s) and Denies weakness ENT: Denies vertigo and Denies dizziness Respiratory: Respiratory: Denies cough Gastrointestinal: Gastrointestinal: Denies diarrhea, Denies nausea and Denies vomiting Musculoskeletal: Musculoskeletal: Reports back pain and Denies joint swelling Integumentary/Breasts: Skin/Breast: Denies rash Neurologic: Denies vertigo and Denies dizziness [facility] Past Medical History Medical History Arthritis Hypertension Morbid obesity with BMI of 40.0-44.9, adult Psoriasis Surgical History Surgical History History of cervical spinal surgery History of orthopedic surgery Right foot and ankle surgery Family History Family History Father Cholelithiasis Social History Social History Social History: Surrogate decision maker: Popeye Spencer, father. Code status: Full code. Smoking status: Former smoker Alcohol intake: never Substance use: never Spiritual care concerns: No Comments At time of signature, I agree with nursing past medical, surgical, social and family history. There is no relevant family history pertinent to the presenting complaint. Exam Const: General: healthy appearing Nutritional Appearance: well nourished Orientation/consciousness: patient oriented x3 Limitations: no limitations Neck: Neck: normal visual inspection Resp: Effort & Inspection: normal respiratory effort and not labored Auscultation: clear to auscultation bilaterally and no crackles Cardio: Rate: regular rate Rhythm: regular rhythm Heart sounds: no murmurs GI: Inspection: non-distended GI Palp: Yes Soft to palpation and No Tenderness to palpation present (GI) : General: Yes no CVA tenderness Back/Spine/Pelvis: Back: no CVA tenderness and CVA tenderness Other: Pain noted to mid back and thoracic region upon palpation. There are no open wounds, rash, bruising, bleeding or swelling noted. Full range of motion of back is noted. Increased pain noted with range of motion of back. Hand grasp and pedal pushes are equal Skin: General skin exam: normal color Rashes: no rashes Wounds: no wounds Neuro: General: patient oriented x
[2022-05-19] MEDS: KETOROLAC (*BKC) 60 MG/2 ML VIAL IM (16:23)
== END 2022-05-19 16:40 | disposition home or self-care (01) ==
PROVIDERS: Emergency Provider Nurse Practitioner Family; PCP Family Medicine
DX: M54.6 Pain in thoracic spine (principal); Z87.891 Personal history of nicotine dependence; M19.90 Unspecified osteoarthritis, unspecified site; I10 Essential (primary) hypertension; E66.01 Morbid (severe) obesity due to excess calories; Z68.41 Body mass index [BMI] 40.0-44.9, adult
CPT/HCPCS: 81003; 96372; 99213; G0463; J1885

== ENCOUNTER 2022-09-03 14:51 | Emergency (ER) | payer OTHER, SELFPAY ==
--- NOTE | ~2022-09-03 | XR_ITS ---
EXAM: XR shoulder RT min 2V DATE: 09/03/2022 15:27 HISTORY: injury today lifting heavy object feltpop/pain anterior post . COMPARISON: None available. FINDINGS: Normal mineralization. No fracture or dislocation. No lytic or blastic lesion. Mild degene rative change at the AC joint. No erosion or periosteal change. Soft tissues within normal limits. IMPRESSION: No acute osseous finding in the right shoulder. Reviewed, dictated and finalized at location [facility]. [employer]
[2022-09-03 15:06] VITALS: BP 138/61; PULSE 71; RESP 18; TEMP 36.2; O2SAT 98
--- NOTE | 2022-09-03 15:06 | ED.UPPEXIN ---
HPI - Extremity Injury (Upper) General Chief Complaint: Extremity Injury, Upper Stated Complaint: rt shoulder injury/work related Time Seen by Provider: 09/03/22 15:06 Source: patient Mode of arrival: ambulatory Limitations: no limitations History of Present Illness HPI narrative: 41-year-old male presents with complaint of right shoulder pain. States that he was lifting a cabinet at work and felt pop to right shoulder. Was able to set cabinet down without dropping it. pain to right shoulder when lifting above 90?. Did not take any pain medication prior to arrival. Distal neurovascularly intact. All systems reviewed and negative except as noted above. Related Data Home Medications Medication Instructions Recorded Confirmed lisinopril 10 1 tablet DAILY 02/04/22 09/03/22 mg-hydrochlorothiazide 12.5 mg tablet Allergies Allergy/AdvReac Type Severity Reaction Status Date / Time No Known Allergies Allergy Verified 09/03/22 14:56 Review of Systems Review of Systems: CONSTITUTIONAL: Denies fever, chills, or sweats. EYES: Denies visual changes, redness, or discharge. ENT: Denies rhinorrhea, congestion, sore throat, or otalgia. CARDIOVASCULAR: Denies chest pain, palpitations, or edema. RESPIRATORY: Denies cough or dyspnea. GASTROINTESTINAL: Denies abdominal pain, nausea, vomiting, or diarrhea. GENITOURINARY: Denies dysuria or hematuria. SKIN: Denies rash or itching. MUSCULOSKELETAL: Reports right shoulder pain. NEUROLOGIC: Denies headache, numbness, or weakness. PSYCHIATRIC: Denies anxiety or depression. All other systems reviewed are negative, except as documented in HPI. [facility] Past Medical History Medical History Arthritis Hypertension Morbid obesity with BMI of 40.0-44.9, adult Psoriasis Surgical History Surgical History History of cervical spinal surgery History of orthopedic surgery Right foot and ankle surgery Family History Family History Father Cholelithiasis Social History Social History Social History: Surrogate decision maker: Popeye Spencer, father. Code status: Full code. Smoking status: Former smoker Alcohol intake: never Substance use: never Spiritual care concerns: No Comments At time of signature, agree with nursing past medical, surgical, social and family history. There is no relevant family history pertinent to the presenting complaint. Exam Narrative: GENERAL: This is a well-nourished, well-developed patient, in no apparent distress. HEAD: normocephalic, atraumatic. EYES: PERRL. Sclera clear/white. Vision is grossly intact. EARS: External ears normal NOSE: External nose normal NECK: Neck supple, non-tender without lymphadenopathy, masses or thyromegaly. CARDIOVASCULAR: Regular rate and rhythm without murmurs, gallops, or rubs. RESPIRATORY: Clear to auscultation. Breath sounds equal bilaterally. No wheezes, rales, or rhonchi. SKIN: warm, Dry, intact with no suspicious lesions or rash, good texture and turgor. NEURO: awake, alert, and oriented to person, place and time. There were no obvious focal neurologic abnormalities. EXTREMITIES: Tender to anterior aspect right shoulder. Also tender right shoulder blade, rhomboid muscle. Decreased range of motion due to pain. Negative drop-arm test. Course Course Level of Care: Express Care Visit Vital Signs Vital signs: Vital Signs Temperature 36.2 C L 09/03/22 15:06 Pulse Rate 71 09/03/22 15:06 Respiratory Rate 18 09/03/22 15:06 Blood Pressure 138/61 09/03/22 15:06 Pulse Oximetry 98 09/03/22 15:06 Oxygen Delivery Room Air 09/03/22 15:06 Temperature 36.2 C L 09/03/22 15:06 Pulse Rate 71 09/03/22 15:06 Respiratory Rate 18 09/03/22 15:06 Blood Pressure 138
== END 2022-09-03 15:50 | disposition home or self-care (01) ==
PROVIDERS: Emergency Provider Nurse Practitioner Family; PCP Family Medicine
DX: S46.911A Strain of unspecified muscle, fascia and tendon at shoulder and upper arm level, right arm, initial encounter (principal); X50.0XXA Overexertion from strenuous movement or load, initial encounter; Y99.0 Civilian activity done for income or pay; M19.90 Unspecified osteoarthritis, unspecified site; I10 Essential (primary) hypertension; E66.01 Morbid (severe) obesity due to excess calories; Z68.41 Body mass index [BMI] 40.0-44.9, adult; L40.9 Psoriasis, unspecified
CPT/HCPCS: 73030; 99213; A4565; G0463

== ENCOUNTER 2022-09-29 16:21 | Emergency (ER) | payer OTHER, SELFPAY ==
--- NOTE | 2022-09-29 16:22 | ED.EXTPRO ---
HPI - Extremity Problem General Chief complaint: Extremity Injury, Upper Stated complaint: Lt Hand Swelling Time Seen by Provider: 09/29/22 16:22 Source: patient Mode of arrival: ambulatory Limitations: no limitations History of Present Illness HPI Narrative: Popeye is a 42-year-old male patient presenting to the clinic today with complaints of left hand swelling x1 day. He reports he was staying at a hotel yesterday and thinks he may have been bitten by something. Has a red mitch to the left dorsal hand with localized swelling. States that it is very itchy. He reports pain with palpation Related Data Home Medications Medication Instructions Recorded Confirmed lisinopril 10 1 tablet DAILY 02/04/22 09/29/22 mg-hydrochlorothiazide 12.5 mg tablet Allergies Allergy/AdvReac Type Severity Reaction Status Date / Time No Known Allergies Allergy Verified 09/29/22 16:23 Review of Systems Review of Systems: Pertinent positives per HPI. Patient denies any fever, chills, rash, headache, visual changes, dizziness, cough, runny nose, sore throat, shortness of breath, chest pain, palpitations, nausea, vomiting, diarrhea, constipation, abdominal pain, or any urinary issues. [facility] Past Medical History Medical History Arthritis Hypertension Morbid obesity with BMI of 40.0-44.9, adult Psoriasis Surgical History Surgical History History of cervical spinal surgery History of orthopedic surgery Right foot and ankle surgery Family History Family History Father Cholelithiasis Social History Social History Social History: Surrogate decision maker: Popeye Spencer, father. Code status: Full code. Smoking status: Former smoker Alcohol intake: never Substance use: never Spiritual care concerns: No Comments At the time of my signature, I reviewed and agree with the nursing past medical, surgical, social, and family history. There is no relevant family history pertinent to the patient complaint. Exam Narrative: General: Well-developed, well nourished, in no apparent distress Head: Normocephalic, atraumatic. Cardio: Regular rate and rhythm, s1 and s2 normal, no murmur appreciated. Resp: Clear to auscultation bilaterally, no rhonchi, rales, wheezing or rubs. Integumentary: [place], warm, and dry, probable insect bite to the left dorsal hand with localized swelling-mild redness around the bite. Course Course Emergency Course: Portions of this record may have been created with voice recognition software. Level of Care: Express Care Visit Vital Signs Vital signs: Vital signs reviewed MDM - Extremity (Nontraumatic) MDM Narrative Medical decision making narrative: At the time of visit patient is resting comfortably on the exam table. Discharge Plan Discharge Clinical Impression: Localized swelling on left hand, Insect bite Patient Disposition: Home, Self-Care Condition: Stable Instructions: Antibiotic Form, General Allergic Reaction (ED), Insect Bite or Sting (ED) Additional Instructions: Take prednisone as prescribed Rest, ice, and elevate left hand May take Benadryl 25-50 mg every 6 hours as needed for itching May apply hydrocortisone cream topically twice daily Follow-up with your PCP in 3-5 days if symptoms persist Go to the emergency room if symptoms worsen-increase in swelling, redness, fever, Prescriptions: New prednisone 20 mg tablet 40 mg PO DAILY 5 Days Qty: 10 0RF No Action lisinopril-hydrochlorothiazide 10-12.5 mg tablet 1 tablet DAILY albuterol sulfate 90 mcg/actuation HFA aerosol inhaler 2 puff inhalation QID PRN (Reason: shortness of breath or wheezing) Qty: 8.5 0RF Follow-up/Referrals: John,
[2022-09-29 16:28] VITALS: BP 134/74; PULSE 69; RESP 18; TEMP 36.4; O2SAT 99
== END 2022-09-29 16:38 | disposition home or self-care (01) ==
PROVIDERS: Emergency Provider Nurse Practitioner Family; PCP Family Medicine
DX: S60.562A Insect bite (nonvenomous) of left hand, initial encounter (principal); W57.XXXA Bitten or stung by nonvenomous insect and other nonvenomous arthropods, initial encounter; Z87.891 Personal history of nicotine dependence; M19.90 Unspecified osteoarthritis, unspecified site; I10 Essential (primary) hypertension; E66.01 Morbid (severe) obesity due to excess calories; Z68.41 Body mass index [BMI] 40.0-44.9, adult; L40.9 Psoriasis, unspecified
CPT/HCPCS: 99213; G0463

== ENCOUNTER → 2023-03-19 09:40 | Outpatient (CLI) | payer OTHER, SELFPAY ==
--- NOTE | ~2023-03-19 | MR_ITS ---
MR arthrogram of the right shoulder Technique: Following intra-articular injection of dilute gadolinium, coronal T1 fat-sat and T2 fat-sa t images, sagittal T1-weighted and T2 fat-sat images, and axial T1 fat-sat and T2 fat-sat images were performed. T1 fat-sat images were also performed in the abduction external rotation position.. Clinical History: Impingement syndrome Findings: No significant degenerative change seen at the AC joint. Coracoclavicular, coracoacromial, and coracohumeral ligaments are probably intact. Supraspinatus and infraspinatus tendons are intact, without partial or full-thickness tear. Subscapul juan alberto tendon is intact. Tendon of the long head of the biceps is intact. There is probable degenerative attenuation and tearing of the superior labrum extending to the anteri or and posterior superior portions. Inferior glenohumeral ligament is intact. There is mild chondromalacia of the glenohumeral joint. No fluid distention of, or contrast extravasation into, the subacromial/subdeltoid bursa. No muscle atro phy evident. Soft tissue edema at the anterior deltoid region is presumably related to contrast injec tion. Impression: Probable degenerative SLAP tear of the labrum, as noted above. No rotator cuff tear seen. Reviewed, dictated and finalized at [facility]. Impression: Probable degenerative SLAP tear of the labrum, as noted above. No rotator cuff tear seen.
--- NOTE | ~2023-03-19 | XR_ITS ---
XR fl inj shoulder RT - MR/CT DATE: 03/19/2023 11:13 INDICATION: Right shoulder pain TECHNIQUE: The purpose of the procedure technique were discussed with the patient. The patient verbal ized understanding and gave consent. With the patient, and on the fluoroscopy table, a site was marked for percutaneous access at the ante rior aspect of the right shoulder. The skin was prepared with sterile Betadine solution. Sterile drap e was applied. 1% lidocaine local anesthetic was administered to the skin and underlying subcutaneous tissues. Subsequently a 22-gauge spinal needle was introduced into the glenohumeral joint space with fluorosco pic guidance. 12 CC of mixed multi-Capri, Omnipaque and lidocaine was injected into the joint. The ne edle was then withdrawn. The patient was very cooperative and tolerated the procedure well. The patient was scheduled for MR examination shortly after the intra-articular injection. IMPRESSION: Intra-articular contrast injection for MRI shoulder examination, with fluoroscopic guidan ce Reviewed, dictated and finalized at [facility]. Reviewed, dictated and finalized at location [facility]. IMPRESSION: Intra-articular contrast injection for MRI shoulder examination, wi fluoroscopic guidance
== END ==
PROVIDERS: PCP Family Medicine; Visit Provider Orthopaedic Surgery
DX: M75.41 Impingement syndrome of right shoulder (principal)
CPT/HCPCS: 23350; 73222; 77002; A9577; Q9967

== ENCOUNTER 2023-07-09 10:26 | Emergency (ER) | payer OTHER, SELFPAY ==
[2023-07-09 10:45] VITALS: BP 143/75; PULSE 103; RESP 24; TEMP 36.7; O2SAT 99
--- NOTE | 2023-07-09 10:51 | ED.CHESTPAIN ---
HPI - Chest Pain General Chief Complaint: Chest Pain Stated Complaint: sob,chest pain Time Seen by Provider: 07/09/23 10:50 Source: patient Mode of arrival: ambulatory Limitations: no limitations History of Present Illness HPI narrative: Popeye is a 42-year-old male patient presenting to the clinic today with complaints of shortness of breath and chest pain. He reports that his symptoms started this morning when he woke up. He reports he was having dizziness and shortness of breath does now have some sharp stabbing midsternal chest pain. Rates his pain Related Data Home Medications Medication Instructions Recorded Confirmed lisinopril 10 1 tablet DAILY 02/04/22 07/09/23 mg-hydrochlorothiazide 12.5 mg tablet Allergies Allergy/AdvReac Type Severity Reaction Status Date / Time No Known Allergies Allergy Verified 09/29/22 16:23 Review of Systems Review of Systems: Pertinent positives per HPI. Patient denies any fever, chills, rash, headache, visual changes, dizziness, cough, runny nose, sore throat, palpitations, nausea, vomiting, diarrhea, constipation, abdominal pain, or any urinary issues. [facility] Past Medical History Medical History Arthritis Hypertension Morbid obesity with BMI of 40.0-44.9, adult Psoriasis Surgical History Surgical History History of cervical spinal surgery History of orthopedic surgery Right foot and ankle surgery Family History Family History Father Cholelithiasis Social History Social History Social History: Surrogate decision maker: Popeye Spencer, father. Code status: Full code. Smoking status: Former smoker Alcohol intake: never Substance use: never Spiritual care concerns: No Comments At the time of my signature, I reviewed and agree with the nursing past medical, surgical, social, and family history. There is no relevant family history pertinent to the patient complaint. Exam Narrative: General: Well-developed, morbidly obese, in no apparent distress Head: Normocephalic, atraumatic. Cardio:Sinus tachycardia, regular rate and rhythm, s1 and s2 normal, no murmur appreciated. Resp: Clear to auscultation bilaterally, no rhonchi, rales, wheezing or rubs. Extremities: No deformity, no edema, no cyanosis, capillary refill less than 2 seconds, peripheral pulses palpable and strong. Integumentary: [place], warm, and dry, intact without lesion, psoriasis patches on legs, arms, and fingers Course Course Emergency Course: Portions of this record may have been created with voice recognition software. Level of Care: Express Care Visit Vital Signs Vital signs: Vital signs reviewed MDM - Chest Pain MDM Narrative Medical decision making narrative: At the time of visit patient is resting comfortably on the exam table. COVID testing was positive in the clinic today. Patient is complaining of chest pain and shortness of breath. Will send to the ER for further evaluation. Patient would like to be transferred to [facility] in [facility], contacted EMS for transfer. Spoke with Flor URIAS and accepts patient for transfer Differential Diagnosis Differential diagnosis: Likely chest pain and other (Shortness of breath, chest pain, COVID positive) ECG Data EKG #1: Attestation: I personally reviewed and interpreted this ECG as follows: ECG completion date: 07/09/23 ECG completion time: 10:54 Prior ECG tracings: not available for review Interpretation: EKG shows normal sinus rhythm with heart rate of 99 beats per minute. TN intervals 145 milliseconds, QRS durations 9 2 milliseconds, QT-QTC is 325-381 milliseconds, P-R-T axis is 25 25 38 Discharge Plan Discharge Clinical
[2023-07-09] MEDS: ASPIRIN 81 MG CHEWABLE TABLET 324 MG PO (11:03)
--- NOTE | 2023-07-09 12:45 | ECG_ITS ---
Measurements Intervals [place] Rate: 99 P: 25 MS: 145 QRS: 25 QRSD: 92 T: 38 QT: 325 QTc: 418 Interpretive Statements SINUS RHYTHM INCOMPLETE RIGHT BUNDLE BRANCH BLOCK BASELINE ARTIFACT- I, III, AVL, AVF BORDERLINE ECG NO PREVIOUS ECG AVAILABLE FOR COMPARISON Electronically Signed On 07-09-2023 13:12:16 CONTRACT LOADER by David Greenwood D.O.
== END 2023-07-09 11:19 | disposition short-term general hospital (02) ==
PROVIDERS: Emergency Provider Nurse Practitioner Family; PCP Family Medicine
DX: U07.1 COVID-19 (principal); R06.02 Shortness of breath; I45.10 Unspecified right bundle-branch block; M19.90 Unspecified osteoarthritis, unspecified site; I10 Essential (primary) hypertension; L40.9 Psoriasis, unspecified; E66.01 Morbid (severe) obesity due to excess calories; Z68.41 Body mass index [BMI] 40.0-44.9, adult
CPT/HCPCS: 87426; 93005; 99215; A9270; C9803; G0463

== ENCOUNTER 2024-10-25 13:44 | Emergency (ER) | payer BC, SELFPAY ==
--- NOTE | 2024-10-25 13:50 | ED.URI ---
HPI - URI/Sore Throat General Chief Complaint: Upper Respiratory Infection Stated Complaint: sore throat/ chest pain Time Seen by Provider: 10/25/24 14:17 Source: patient, RN notes reviewed and old records reviewed Mode of arrival: ambulatory Limitations: no limitations History of Present Illness HPI Narrative: 44-year-old male presents to the [facility] with complaints of a productive cough, shortness of breath, midsternal to left sided chest pain. Patient also reports a sore throat. No treatment prior to arrival. Patient states that his symptoms started yesterday. Unsure if he has had a fever. Reports the cough has been intermittently productive. Reports the chest pain has been increasing and pretty steady. Patient reporting increase shortness of breath. Onset (ago): day(s) (1) Treatments prior to arrival: none Related Data Home Medications ?Medication ?Instructions ?Recorded ?Confirmed ?Last Taken ?Type lisinopril 10 1 tablet DAILY 02/04/22 07/09/23 Unknown History mg-hydrochlorothiazide 12.5 mg tablet apremilast 30 mg tablet (Otezla) mg PO 10/25/24 Unknown History Allergies Allergy/AdvReac Type Severity Reaction Status Date / Time No Known Allergies Allergy Verified 10/25/24 13:57 Review of Systems Review of Systems: All systems reviewed & are unremarkable except as noted in HPI and below Constitutional: Constitutional: Reports as per HPI and Reports fatigue ENT: Reports as per HPI and Reports sore throat Cardiovascular: Cardiovascular: Reports as per HPI, Reports chest pain, Denies edema and Reports dyspnea Respiratory: Respiratory: Reports as per HPI, Reports chest congestion, Reports cough and Reports dyspnea Musculoskeletal: Musculoskeletal: Reports no additional musculoskeletal complaints Integumentary/Breasts: Skin/Breast: Reports system reviewed and no additional complaints, except as docu PMFSH Past Medical History Medical History Psoriasis Morbid obesity with BMI of 40.0-44.9, adult Hypertension Arthritis Surgical History Surgical History History of cervical spinal surgery History of orthopedic surgery Right foot and ankle surgery Family History Family History Father Cholelithiasis Social History Social History Social History: Surrogate decision maker: Popeye Spencer, father. Code status: Full code. Smoking status: Former smoker Alcohol intake: never Substance use: never Spiritual care concerns: No Comments At the time of my signature, I reviewed and agree with the nursing past medical, surgical, social, and family history. There is no relevant family history pertinent to the patient complaint. Exam Const: General: cooperative, no acute distress, well developed, alert, tired appearing, uncomfortable and well nourished Nutritional Appearance: well nourished Orientation/consciousness: patient oriented x3 Limitations: no limitations HENMT: Head: normal to inspection Ears: hearing grossly normal bilaterally, external ears normal, TM's normal bilaterally, EAC's normal, mastoids normal and no periauricular adenopathy Mouth: Yes Normal oral and palatal mucosa present, Yes lip normal, Yes tongue normal and Yes moist mucous membranes Teeth and gingiva: poor dentition Throat: posterior oropharynx normal, uvula midline and no uvular edema Eyes: General: appearance normal, both eyes and all related structures Alignment and Position: alignment normal Neck: Neck: normal visual inspection, full ROM, no lymphadenopathy and no meningeal signs Chest: Chest palpation & inspection: normal inspection of the chest Resp: Effort & Inspection: normal respiratory effort and able to speak in complete sentences Auscultation: clear to auscultation bilaterally, no crackles, no rales, no rhonchi, no wheezes and diminished lung sounds bilateral throughout Cardio: Rate: regular rate Skin: General skin exam: normal color and no rashes or lesions noted Neuro: General: patient oriented x3, gait normal, moves all extremities and no meningeal signs Cognition (Neuro): normal cognition Speech: normal speech Gait exam (Neuro): Normal gait present Extrem: General: normal to inspection, full ROM, capillary refill normal and normal gait Psych: Appearance: grossly normal and well kempt Mental Status: mental status grossly normal Speech and movement: Normal speech and movement present and Clear speech present Affect: normal affect Attitude: cooperative Course Course Level of Care: Express Care Visit Vital Signs Vital signs: Vital Signs Temperature 98.1 F 10/25/24 13:57 Pulse Rate 62 10/25/24 13:57 Respiratory Rate 18 10/25/24 13:57 Blood Pressure 120/55 L 10/25/24 13:57 Pulse Oximetry 99 10/25/24 13:57 Oxygen Delivery Room Air 10/25/24 13:57 Temperature 98.1 F 10/25/24 13:57 Pulse Rate 62 10/25/24 13:57 Respiratory Rate 18 10/25/24 13:57 Blood Pressure 120/55 L 10/25/24 13:57 Pulse Oximetry 99 10/25/24 13:57 Oxygen Delivery Room Air 10/25/24 13:57 Reviewed Transfer Transfered to: [facility] (Per patient request) Transportation: Other (POV, having dad drive him. Declined EMS) Transfer rationale: Patient with 1 day history of URI symptoms but also increasing sternal to left-sided chest pain that is increasing. Accepting physician: Dr. Gee MDM - URI/Sore Throat MDM Narrative Medical decision making narrative: Patient sitting in exam room. Nontoxic but appears uncomfortable. Patient presents with 1 day history of URI symptoms but also reports increasing sternal to left-sided chest pain. Patient reports pain got worse during exam. Flu, COVID, strep were negative, EKG was normal sinus rhythm with no acute changes Due to take chest pain sending for higher level of care Transfer instructions reviewed with patient go directly to the emergency room. Patient declined EMS, reports that his father will drive him All questions have been answered, and the patient deny any further questions. Some parts of this dictation were generated by voice recognition software and may contain typographical and/or grammatical inaccuracies. Differential Diagnosis Differential diagnosis: Likely upper respiratory infection, otitis media, sinusitis, viral infection, bronchitis, influenza, pharyngitis and other (Pneumonia, non STEMI, STEMI, cholecystitis, pancreatitis) Lab Data Labs: Lab Results 10/25/24 10/25/24 Range/Units 14:19 14:25 POC Influenza A Ag Negative (Negative) POC Influenza B Ag Negative (Negative) POC SARS CoV-2 Ag Negative (Negative) POC Grp A Strep Screen Negative (Negative) Reviewed ECG Data EKG #1: Attestation: I personally reviewed and interpreted this ECG as follows: ECG completion date: 10/25/24 ECG completion time: 14:16 Interpretation: Sinus rhythm, normal EKG, ventricular rate of 63, VT interval 150, QRS duration 104. There is no ST elevations or depressions at this time. Critical Care Time Critical Care Time Critical Care Time: No Discharge Plan Discharge Clinical Impression: Upper respiratory infection, Chest pain Patient Disposition: Acute Care Hospital Condition: Stable Patient Language: [place] Prescriptions: No Action lisinopril-hydrochlorothiazide 10-12.5 mg tablet 1 tablet DAILY Otezla 30 mg tablet PO Follow-up/Referrals: Luis Campos MD [Primary Care Provider] -
[2024-10-25 13:57] VITALS: BP 120/55; PULSE 62; RESP 18; TEMP 36.7; O2SAT 99
--- NOTE | 2024-10-25 14:05 | ECG_ITS ---
Test Date: 2024-10-25 15:08:05 Measurements Intervals [place] Rate: 68 P: 27 AK: 130 QRS: 40 QRSD: 94 T: 55 QT: 371 QTc: 395 Interpretive Statements SINUS RHYTHM BASELINE ARTIFACT- I, II, III, AVR, AVL, AVF, V1-V3 NORMAL ECG No previous ECG available for comparison Electronically Signed On 10-25-2024 15:14:54 RESERVATIONS AND TICKETING AGENT by David Greenwood D.O.
[2024-10-25 14:21] LABS: EDSTREPNEGPOS1 Negative (Negative)
[2024-10-25 14:26] LABS: EDCOVIDSCREEN Negative (Negative); EDINFLUASCREEN Negative (Negative); EDINFLUBSCREEN Negative (Negative)
--- OUTSIDE RECORDS SUMMARY | 2024-10-25 15:54 | XMS_ITS | Encounter Summary ---
Author Organization [facility] Address [address] [place] [address] Care Team Providers Care Livestock Counter Name Role Phone Eric Lopez MD Primary Care Provider [phone] Encounter Details Date Type Department Care Team (Late st Contact Info) Description 05/13/2024 InVisiont Message Enc [facility] Family & Internal Medicine [address] [id number] Eric Lopez MD [address] [place] [id number] A1C Social History Tobacco Use Types Packs/Day Years Used Date Smoking Tobacco: Former Cigarettes 0.5 15 0 05/19/2006 - 05/19/2021 Passive Smoke Exposure: Past Smokeless Tobacco: Never Comments:na Alcohol Use Standard Drinks/Week Comments Yes 0 (1 standard drink = 0.6 oz pur e alcohol) socially PHQ-2 Answer Date Recorded Patient Health Questionnaire-2 Score 0 12/15/2023 Education Answer Date Recorded What is the highest level of school you have completed or the highest degree you have received? Some college, no degree 04/30/2019 Sex and Gender Information Value Date Recorded Sex Assigned at Male 04/30/2019 4:06 PM CDT Legal Sex Male 8:17 PM CDT Gender Identity Male 04/30/2019 4:06 PM CDT Sexual Orientation Straight 04/30/2019 4: 06 PM CDT documented as of this encounter Plan of Treatment Upcoming Encounters Date Type Department Care Team (Late st Contact Info) Description 11/18/2024 8:40 AM CDT Office Visit [facility] Family & Internal Medicine [facility] [address] [place] [address] [place] [address] [place] [address] documented as of this encounter Visit Diagnoses Not on filedocumented in this encounter Additional Health Concerns Assessment Noted Time PHQ-9 Depression Total Score: 1 10/25/19 22 11:13 AM IT DATA ARCHITECT documented as of this encounter Care Teams Livestock Counter Relationship Specialty [place] [address] [place] [address] PCP - General FAMILY PRACTICE 07/07/18 documented as of this encounter
--- OUTSIDE RECORDS SUMMARY | 2024-10-25 15:54 | XMS_ITS | Encounter Summary ---
Author Organization [facility] Address [address] [place] [address] Care Team Providers Care Hoop Punch Operator Helper Name Role Phone Eric Lopez MD Primary Care Provider [phone] Encounter Details Date Type Department Care Team (Late st Contact Info) Description 06/25/2024 Symtavisiont Message Enc [facility] Medical Group Family & Internal Medicine [facility] [address] [place] [address] [place] [id number] [place] [address] Sciatic nerve Social History Tobacco Use Types Packs/Day Years [...] PM CDT documented as of this encounter Progress Notes * Sandrine Retana RN - 06/25/2024 10:08 AM CDT Printed for Dr wilkinson advise. documented in this encounter Plan of Treatment Upcoming Encounters Date Type Department Care Team (Late st Contact Info) Description 11/18/2024 8:40 AM CDT Office Visit [facility] Medical Group Family & Internal Medicine [facility] [address] [place] [phone] [place] [address] [place] [address] documented as of this encounter Visit Diagnoses Not on filedocumented in this encounter Additional Health Concerns Assessment Noted Time PHQ-9 Depression Total Score: 1 10/25/19 22 11:13 AM SHIPPING ASSISTANT documented as of this encounter Care Teams Hoop Punch Operator Helper Relationship Specialty [place] [address] [place], [place] [id number] PCP - General FAMILY PRACTICE 07/07/18 documented as of this encounter
--- OUTSIDE RECORDS SUMMARY | 2024-10-25 15:54 | XMS_ITS | Encounter Summary ---
Author Organization [facility] Address [address] [place] [address] Care Team Providers Care Geropsychologist Name Role Phone Eric Lopez MD Primary Care Provider [phone] Encounter Details Date Type Department Care Team (Late st Contact Info) Description 01/21/2024 Chipolot Message Enc [facility] Medical Group Family & Internal Medicine [facility] [address] [place] [address] [place] [id number] [place] [address] Ozempic and otezla Social History Tobacco Use Types Packs/Day Years [...] Progress Notes * Sandrine Retana RN - 01/29/2024 12:06 PM CDT Spoke with Madison at [facility] at [phone]. She states to escribe rx to [facility] in [place], [place]. Rx sent. documented in this encounter Plan of Treatment Upcoming Encounters Date Type Department Care Team (Late st Contact Info) Description 11/18/2024 8:40 AM CDT Office Visit [facility] Medical Group Family & Internal Medicine [facility] [address] [place] [phone] [place] [address] [place] [address] documented as of this encounter Visit Diagnoses Not on filedocumented in this encounter Additional Health Concerns Assessment Noted Time PHQ-9 Depression Total Score: 1 10/25/19 22 11:13 AM AUTOMOTIVE TIRE WORKER documented as of this encounter Care Teams Geropsychologist Relationship Specialty [place] [address] [place] [address] PCP - General FAMILY PRACTICE 07/07/18 documented as of this encounter
--- OUTSIDE RECORDS SUMMARY | 2024-10-25 15:54 | XMS_ITS | Encounter Summary ---
Author Organization [facility] Address [address] [place] [address] Care Team Providers Care Personal Loan Specialist Name Role Phone Eric Lopez MD Primary Care Provider [phone] Encounter Details Date Type Department Care Team (Late st Contact Info) Description 06/01/2024 [facility] [place] Message Enc [facility] Medical Group Family & Internal Medicine [facility] [address] [place] [address] [place] Lopez [place] [address] [place] [address] Lower back Social History Tobacco Use Types Packs/Day Years [...] Progress Notes * Sandrine Retana RN - 06/01/2024 8:58 AM CDT Printed for Dr wilkinson advisedelmira. documented in this encounter Plan of Treatment Upcoming Encounters Date Type Department Care Team (Late st Contact Info) Description 11/18/2024 8:40 AM CDT Office Visit [facility] Medical Group Family & Internal Medicine [facility] [address] [place] [phone] [place] [address] [place] [address] documented as of this encounter Visit Diagnoses Not on filedocumented in this encounter Additional Health Concerns Assessment Noted Time PHQ-9 Depression Total Score: 1 10/25/19 22 11:13 AM COFFEE URN ATTENDANT documented as of this encounter Care Teams Personal Loan Specialist Relationship Specialty [place] [address] [place], [place] [id number] PCP - General FAMILY PRACTICE 07/07/18 documented as of this encounter
--- OUTSIDE RECORDS SUMMARY | 2024-10-25 15:54 | XMS_ITS | Encounter Summary ---
Author Organization [facility] Address [address] [place] [address] Care Team Providers Care Parole Director Name Role Phone Eric Lopez MD Primary Care Provider [phone] Encounter Details Date Type Department Care Team (Late st Contact Info) Description 06/08/2024 Vuzixt Message Enc [facility] Family & Internal Medicine [facility] [address] [place] [address] Eric Lopez MD [address] [place] [address] Abdominal pain Social History Tobacco Use Types Packs/Day Years [...] Description 11/18/2024 8:40 AM CDT Office Visit [facility] Medical Group Family & Internal Medicine [facility] [address] [place] [address] [place] [address] [place] [address] documented as of this encounter Visit Diagnoses Not on filedocumented in this encounter Additional Health Concerns Assessment Noted Time PHQ-9 Depression Total Score: 1 10/25/19 22 11:13 AM DOCTOR ASSISTANT documented as of this encounter Care Teams Parole Director Relationship Specialty [place] [address] [place] [address] PCP - General FAMILY PRACTICE 07/07/18 documented as of this encounter
--- OUTSIDE RECORDS SUMMARY | 2024-10-25 15:54 | XMS_ITS | Encounter Summary ---
Author Organization [facility] Address [address] [place] [address] Care Team Providers Care Insurance Legal Assistant Name Role Phone Eric Lopez MD Primary Care Provider [phone] Encounter Details Date Type Department Care Team (Late st Contact Info) Description 10/28/2023 The Boxt Message Enc [facility] Family & Internal [facility] [address] [place] [address] Eric Lopez MD [address] [place] [address] Lab work Social History Tobacco Use Types Packs/Day Years Used Date Smoking Tobacco: Former Cigarettes 0.5 15 0 05/19/2006 - 05/19/2021 Smokeless Tobacco: Never Comments:na Alcohol Use Standard Drinks/Week Comments Yes 0 (1 standard drink = 0.6 oz pur e alcohol) socially PHQ-2 Answer Date Recorded Patient Health Questionnaire-2 Score 0 10/17/2022 Education Answer Date Recorded What is the [...] Description 11/18/2024 8:40 AM CDT Office Visit [facility] Family & Internal Medicine [facility] [address] [place] [address] [place] [address] [place] [address] documented as of this encounter Visit Diagnoses Not on filedocumented in this encounter Additional Health Concerns Assessment Noted Time PHQ-9 Depression Total Score: 1 10/25/19 22 11:13 AM SECURITY ATTENDANT documented as of this encounter Care Teams Insurance Legal Assistant Relationship Specialty [place] [address] [place] [address] PCP - General FAMILY PRACTICE 07/07/18 documented as of this encounter
--- OUTSIDE RECORDS SUMMARY | 2024-10-25 15:54 | XMS_ITS | Encounter Summary ---
Author Organization [facility] Address [address] [place] [address] Care Team Providers Care Asphalt Smoother Name Role Phone Eric Lopez MD Primary Care Provider [phone] Encounter Details Date Type Department Care Team (Late st Contact Info) Description 12/10/2023 [facility] Patient Accounts [address] [place] [address] [facility] Action Required Social History Tobacco Use Types Packs/Day Years [...] Encounters Date Type Department Care Team (Late Contact Info) Description 11/18/2024 8:40 AM CDT Office Visit [facility] Medical Group Family & Internal Medicine [address] [address] Eric Lopez MD [address] [place], [place] [phone] documented as of this encounter Visit Diagnoses Not on filedocumented in this encounter Additional Health Concerns Assessment Noted Time PHQ-9 Depression Total Score: 1 10/25/19 22 11:13 AM MOTOR AND CHASSIS INSPECTOR documented as of this encounter Care Teams Asphalt Smoother Relationship Specialty [place] [address] [place] [address] PCP - General FAMILY PRACTICE 07/07/18 documented as of this encounter
--- OUTSIDE RECORDS SUMMARY | 2024-10-25 15:54 | XMS_ITS | Encounter Summary ---
Author Organization [facility] Address [address] [place] [address] Care Team Providers Care Culinary Artist Name Role Phone Eric Lopez MD Primary Care Provider [phone] Encounter Details Date Type Department Care Team (Late st Contact Info) Description 11/10/2023 WePowt Message Enc [facility] Family & Internal [facility] [address] [place] [address] Eric Lopez MD [address] [place] [address] Metformin Social History Tobacco Use Types Packs/Day Years [...] Description 11/18/2024 8:40 AM CDT Office Visit [facility] Family & Internal Medicine [facility] [address] [place] [address] [place] [address] [place] [address] documented as of this encounter Visit Diagnoses Not on filedocumented in this encounter Additional Health Concerns Assessment Noted Time PHQ-9 Depression Total Score: 1 10/25/19 22 11:13 AM DIRECTOR STAGE documented as of this encounter Care Teams Culinary Artist Relationship Specialty [place] [address] [place] [address] PCP - General FAMILY PRACTICE 07/07/18 documented as of this encounter
--- OUTSIDE RECORDS SUMMARY | 2024-10-25 15:54 | XMS_ITS | Continuity of Care Document ---
Author Organization [facility] Address [address] [place] [address] Phone Care Team Providers Care Stock Drier Tender Name Role Phone Xavier Mcintosh MD Unavailable Unavailable Advance Directives Directive Yes / No Effective Date File Name No Information Encounters Encounter Description Practice Location Reason(s) For Visit Diagnoses Date Provider Providers Copied on Encounter [facility], [address], [place], [place], [address], tel:[phone] [facility] No Information Arnaldo Park. [address] , [place], [place], [id number], [place]. tel:[phone] Referring Provider: Keyshawn Covarrubias DO, [address], [place], [address]. tel:[phone] Family History Family Member Type Diagnosis Age At Onset No Information Payers Payer name Insurance type Covered green party ID Authoraniket berkowitzjennifer(s) DARIN JERMAINE [id number] Social History Type Description Quantity Date Captured [...]
--- OUTSIDE RECORDS SUMMARY | 2024-10-25 15:54 | XMS_ITS | Encounter Summary ---
Author Organization [facility] Address [address] [place] [address] Care Team Providers Care Ball Point Splitter Name Role Phone Eric Lopez MD Primary Care Provider [phone] Encounter Details Date Type Department Care Team (Late st Contact Info) Description 09/15/2023 Venustecht Message Enc [facility] Medical Group Family & Internal Medicine [facility] [address] [place] [address] Eric Lopez MD [address] [place] [address] Blood work Social History Tobacco Use Types Packs/Day [...] as of this encounter Progress Notes * Anabella Crocker, SairaD - 09/19/2023 9:57 AM CST The only thing we will be able to get for him to bring his numbers down is insulin. We can get an insulin pen for $35/month with a savings card if we prescribe basaglar HER INSTRUMENTAL * Sandrine Retana RN - 09/17/2023 6:25 PM CST A1C was 12.3. Ozempic is too expensive. He is on Metformin. What would you recommend for him? Thankyou! HER INSTRUMENTAL documented in this encounter Plan of Treatment Upcoming Encounters Date Type Department Care Team (Late st Contact Info) Description 11/18/2024 8:40 AM CDT Office Visit [facility] Medical Group Family & Internal Medicine [facility] [address] [place] [address] [place] [address] [place] [address] documented as of this encounter Visit Diagnoses Not on filedocumented in this encounter Additional Health Concerns Assessment Noted Time PHQ-9 Depression Total Score: 1 10/25/19 22 11:13 AM TEACHER INSTRUMENTAL documented as of this encounter Care Teams Ball Point Splitter Relationship Specialty [place] [address] [place] [address] PCP - General FAMILY PRACTICE 07/07/18 documented as of this encounter
--- OUTSIDE RECORDS SUMMARY | 2024-10-25 15:54 | XMS_ITS | Clinical Summary ---
Author Organization [facility] Address [address] [place] [address] Care Team Providers Care Press Tender Short Goods Name Role Phone Eric Lopez MD Primary Care Provider [phone] Allergies No known active allergies Medications Apremilast (OTEZLA) 10 & 20 & 30 MG Tablet Therapy PackIndications:P soriasis Take 1 Disp Pack by mouth see administration instructions. 55 each Active metFORMIN (GLUCOPHAGE) 1000 MG tabletIndications :Type 2 diabetes mellitus with stage 2 chronic kidney disease, without long-term current use of insulin ([facility]) TAKE 1 TABLET(1000 MG) BY MOUTH TWICE DAILY WITH MEALS 180 tablet 1 Active diazePAM (VALIUM) 5 MG tabletIndications :Benign paroxysmal positional vertigo due to bilateral vestibular disorder Take 1-2 tabs every 6 hours as needed for vertigo 30 tablet Active Additional Information Patient not taking.Reported on 05/20/2024 semaglutide (OZEMPIC, 0.25 OR 0.5 MG/DOSE,) 2 MG/3ML injection (PEN)Indications: Diabetes Mellitus Inject 0.5 mg into the skin every 7 days. Indications: Diabetes 3 mL Active ondansetron (ZOFRAN-ODT) 4 MG disintegrating tablet Take 1 tablet (4 mg total) by mouth every 8 (eight) hours as needed. 20 tablet Active predniSONE (DELTASONE) 20 MG tabletIndications :Sciatica Take 2 tablets by mouth daily for 5 days. 10 tablet Active lisinopril-hydroC HLOROthiazide (ZESTORETIC) 10-12.5 MG tabletIndications :Primary hypertension TAKE 1 TABLET BY MOUTH DAILY 90 tablet 1 025 Active lisinopril-hydroC HLOROthiazide (ZESTORETIC) 10-12.5 MG tabletIndications :Primary hypertension take 1 tablet by mouth daily 90 tablet 1 024 2024 Discontinued Hospital, Clinic, or Other Facility Administered Medication Ordered Dose Route Frequency Start Date End Date Status fluorescein (FLUORETS) ophthalmic strip 1 stripIndications:Abrasion of left eye, initial encounter 1 strip Left Eye Once 12/15/2023 Active Active Problems Problem Noted Date Diagnosed Date SLAP lesion of right shoulder 03/31/2023 Assessment & Plan (03/31/2023 5:52 PM CDT): Recommendation at this time is to try to get him set up for referral to Dr. Travis or Dr. Gonzalez [facility] in [place]. History of neck surgery 11/28/2022 Impingement syndrome of right shoulder Assessment & Plan (02/24/2023 1:50 PM CDT): Recommendation at this time: The patient is advised to continue with anti-inflammatories and exercises. Work notes was provided as requested. We will try to get him set up for an MR arthrogram. If he would like to get an independent medical evaluation that is certainly reasonable. Assessment & Plan (11/28/2022 2:09 PM CDT): Set up for MRI of the cervical spine. Work note to be off work until the problem is resolved. Acute pain of right shoulder 10/15/2022 Assessment & Plan (10/18/2022 11:51 AM FACILITIES SPECIALIST): Continue with physical therapy next week. He also elected for a steroid injection into the right shoulder today. I will start him on Meloxicam 15 mg daily. If he has not improved we could consider and MR Arthrogram. We will follow up in 6 weeks. Morbid obesity with BMI of 4 0.0-44.9, adult ([facility]) 05/27/2022 Acute bilateral thoracic back pain 05/27/2022 Chronic left-sided low back pain with left-sided sciatica 10/25/2021 Lumbar radicular pain 08/11/2020 Psoriasis, unspecified 05/23/2020 HTN (hypertension) 07/02/2018 Obstructive sleep apnea 04/03/2018 Snoring 03/13/2018 Acid reflux 12/27/2016 Resolved Problems Problem Noted Date Diagnosed Date Resolved Date Foot pain 03/13/2018 04/30/2019 Wears contact lenses 11/04/2017 020 Wears glasses 11/04/2017 05/12/2020 Encounters Date Type Department Care Team Description 10/06/2024 Arvinashart Message Enc [facility] Medical Group Family & Internal Medicine [address] [address] Eric Lopez MD Medication from Last 3 Months Immunizations Name Administration Dates Next Due Fluzone Adult - >Age 3 (Pref illed Syringe) 06/27/2022(Deferred: Patient Refused) Influenza Adult (Generic) 07/02/2018 MODERNA COVID-19 (12+) MRNA, LNP-S, PF, 100 MCG/ 0.5 ML DOSE 01/18/2022,12/18/2021 Family History Medical History Relation Comments Hypertension Father Diabetes Maternal Aunt Diabetes Maternal Grandmother Hypertension Maternal Grandmother malignant neoplasm Mother Relation Status Comments Father Alive Maternal Aunt Alive Maternal Grandmother Alive Mother Malignant neopla sm Social History Tobacco Use Types Packs/Day Years Used Date Smoking Tobacco: Former Cigarettes 0.5 15 0 05/19/2006 - 05/19/2021 Passive Smoke Exposure: Past Smokeless Tobacco: Never Tobacco Cessation:Counseling Given: Yes Comments:na Alcohol Use Standard Drinks/Week Comments Yes [...] Orientation Straight 04/30/2019 4: 06 PM CDT Last Filed Vital Signs Vital Sign Reading Time Taken Comments Blood Pressure 136/83 06/05/2024 11:31 PM CDT Pulse 66 06/05/2024 11:31 PM CDT Temperature 36.4 C (97.5 F) 06/05/2024 11:31 PM CDT Respiratory Rate 14 06/05/2024 11:31 PM CDT Oxygen Saturation 96% 06/05/2024 11:31 PM CDT Inhaled Oxygen Concentration - - Weight 104.3 kg (230 lb) 06/05/2024 9:38 PM CDT Height 182.9 cm (6') 06/05/2024 9:38 PM CDT Body Mass Index 31.19 06/05/2024 9:38 PM CDT Plan of Treatment Upcoming Encounters Date Type Department Care Team (Late st Contact Info) Description 11/18/2024 8:40 AM CDT Office Visit [facility] Medical Group Family & Internal Medicine - [address] [address] Eric Lopez MD [address] [place] [phone] Health Maintenance Due Date Last Done Comments Kidney Health Evaluation 1981 Annual Physical 1984 Pneumococcal Vaccine: Pediatrics (0 to 5 Years) and At-Risk Patients (6 to 64 Years) (1 of 2 - PCV) 1987 Diabetes: Retinopathy Eye Exam 1999 Hepatitis C 1999 DTaP, Tdap and Td Vaccines ( 1 - Tdap) 2000 Hepatitis B Vaccines (1 of 3 - 19+ 3-dose series) 2000 COVID-19 Vaccine (3 - 2023-2 5 season) 2024 01/18/2022, 12/18/2021 Influenza Adult (#1) 2024 07/02/2018 PHQ-2 (Physician [place]) 09/01/2024 12/15/2023 Lipid Panel 09/15/2024 09/15/2023, 05/26/2020 Hemoglobin A1C 11/17/2024 05/20/2024, 11/11/2023, 09/12/2023 HPV Vaccines Aged Out No longer eligi ble based on patient's age to complete this topic Meningococcal B Vaccine Aged Out No l onger eligible based on patient's age to complete this topic Meningococcal Vaccine Aged Out No he kellee eligible based on patient's age to complete this topic RSV Immunizations Under 20 Months Aged Out No longer eligible b ased on patient's age to complete this topic Procedures Procedure Name Priority Date/Time Associated Diagnosis Comments HEMOGLOBIN, GLYCOSYLATED Routine 05/20/2024 Type 2 diabetes mellitus without complication, without long-term current use of insulin ([facility]) LIPID PANEL Routine 09/15/2023 8:25 AM FACILITIES SPECIALIST UTI (urinary tract infection) from Last 3 Months or Most Recently Relevant to Health Maintenance Results * HEMOGLOBIN, GLYCOSYLATED (05/20/2024) HGB A1C 4.6 % -[id number] Kay [facility] [place] 05/20/2024 us Eric Lopez MD LABORATORY Final Resul t -[id number] [address] [place] [address] [place] [address], * (ABNORMAL) LIPID PANEL (09/15/2023 8:25 AM FACILITIES SPECIALIST) CHOLESTEROL 132 <200.0 MG/DL 09/15/2023 9:28 AM FACILITIES SPECIALIST [facility] TRIGLYCERIDES 191(H) <150 MG/DL 09/15/2023 9:28 AM FACILITIES SPECIALIST [facility] HDL 30(L) >40.0 MG/DL 09/15/2023 9:28 AM FACILITIES SPECIALIST [facility] LDL (CALCULATED) 64 <100 MG/DL 09/15/2023 9:28 AM FACILITIES SPECIALIST [facility] NON HDL CHOLESTEROL 102 <130 MG/DL 09/15/2023 9:28 AM FACILITIES SPECIALIST [facility] CHOL/HDL RATIO 4.4 0.0 - 4.5 09/15/2023 9:28 AM [facility] VLDL CALCULATION 38 5 - 55 MG/DL 09/15/2023 9:28 AM [facility] LIPID INTERPRETATION 09/15/2023 9:28 AM [facility] Comment: NIH CONCENSUS REPORT RECOMMENDATIONS: ADULT CHILD LOW RISK: CHOLESTEROL <200 <170 TRIGLYCERIDE <150 --- HDL >=60 --- LDL <100 <110 BORDERLINE: CHOLESTEROL 200-239 170-199 TRIGLYCERIDE 150-199 --- HDL 40-59 --- LDL 100-159 110-129 HIGH RISK: CHOLESTEROL >=240 >=200 TRIGLYCERIDE >=200 --- HDL <40 --- LDL >=160 >=130 09/15/2023 8:25 AM FACILITIES SPECIALIST Eric Lopez MD LABORATORY Final Resul t [facility] [address] [place] [address], from Last 3 Months or Most Recently Relevant to Health Maintenance [place] [address] [place] [address] Care Teams Press Tender Short Goods Relationship Specialty [place] [address] [place] [address] PCP - General FAMILY PRACTICE 07/07/18
--- OUTSIDE RECORDS SUMMARY | 2024-10-25 16:00 | XMS_ITS | Continuity of Care Document ---
Author Organization [facility] Address [address] [place] [address] Phone Care Team Providers Care Rn Field Case Manager Name Role Phone Xavier Mcintosh MD Unavailable Unavailable Advance Directives Directive Yes / No Effective Date File Name No Information Encounters Encounter Description Practice Location Reason(s) For Visit Diagnoses Date Provider Providers Copied on Encounter [facility], [address], [place], [place], [id number], tel:[phone] [facility] No Information [facility]. [address] , [place], [place], [id number], [place]. tel:[phone] Referring Provider: Keyshawn Covarrubias DO, [address], [place], [address]. tel:[phone] Family History Family Member Type Diagnosis Age At Onset No Information Payers Payer name Insurance type Covered libertarian ID Authoraniket berkowitzjennifer(s) DARIN JERMAINE [id number] Social History Type Description Quantity Date Captured [...]
== END 2024-10-25 14:34 | disposition short-term general hospital (02) ==
PROVIDERS: Emergency Provider Nurse Practitioner; PCP Family Medicine
DX: J06.9 Acute upper respiratory infection, unspecified (principal); R07.9 Chest pain, unspecified; Z20.822 Contact with and (suspected) exposure to COVID-19; Z87.891 Personal history of nicotine dependence; I10 Essential (primary) hypertension; M19.90 Unspecified osteoarthritis, unspecified site; L40.9 Psoriasis, unspecified; E66.01 Morbid (severe) obesity due to excess calories; Z68.31 Body mass index [BMI] 31.0-31.9, adult
CPT/HCPCS: 87081; 87426; 87804; 87880; 93005; 99213; G0463

== ENCOUNTER 2024-10-25 14:59 | Emergency (ER) | payer BC, SELFPAY ==
--- NOTE | ~2024-10-25 | XR_ITS ---
CHEST RADIOGRAPH, PA AND LATERAL CLINICAL HISTORY: chest pain . COMPARISON: 02/04/2022 TECHNIQUE: PA and lateral views of the chest. FINDINGS The cardiomediastinal silhouette is unremarkable. The lungs are clear. Visualized osseous structures and soft tissues are unremarkable. IMPRESSION: No focal infiltrate or effusion. Reviewed, dictated and finalized at location A. TORY ATTENDANT
--- NOTE | 2024-10-25 15:02 | ECG_ITS ---
Test Date: 2024-10-25 14:16:23 Measurements Intervals [place] Rate: 63 P: 17 [place]: 150 QRS: 50 QRSD: 104 T: 54 QT: 380 QTc: 389 Interpretive Statements SINUS RHYTHM INCOMPLETE RIGHT BUNDLE BRANCH BLOCK BASELINE ARTIFACT- I, II, III, AVR, AVL, AVF, V2 BORDERLINE ECG No previous ECG available for comparison Electronically Signed On 10-25-2024 16:24:07 ARTIFICIAL MARBLE WORKER by David Greenwood D.O.
[2024-10-25 15:10] VITALS: BP 131/48; PULSE 73; RESP 17; TEMP 36.6; O2SAT 98
[2024-10-25 15:23] LABS: Basophils Absolute Auto 0.1 K/mm3 (0.0-0.1); Basophils Percent Auto 0.7 % (0.2-1.2); Eosinophils Absolute Auto 0.4 K/mm3 (0-0.3); Eosinophils Percent Auto 4.6 % (0-4.4); Hematocrit 44.7 % (42.0-52.0); Hemoglobin 15.5 g/dL (14.0-18.0); Immature Granulocyte Absolute 0.03 K/mm3 (0.00-0.031); Immature Granulocyte Percent A 0.3 % (0-0.5); Lymphocytes Absolute Auto 2.12 K/mm3 (0.9-3.2); Lymphocytes Percent Auto 22.4 % (18.3-44.2); Mean Corpuscular HGB Conc 34.7 g/dl (32-36); Mean Corpuscular Hemoglobin 30.4 pg (26-34); Mean Corpuscular Volume 87.6 fl (80-100); Mean Platelet Volume 10.9 fl (7.4-10.4); Monocytes Percent Auto 10.2 % (2.6-8.5); Neutrophils Absolute Auto 5.8 K/mm3 (1.3-6.7); Neutrophils Percent Auto 61.8 % (45.5-73.1); Platelet Count Result 264 k/mm3 (150-375); Red Cell Distribution Width 12.8 % (11.5-14.5); White Blood Count 9.5 K/mm3 (4.5-10.0)
[2024-10-25 15:42] LABS: Alanine Aminotransferase 36 U/L (6-50); Albumin Level 4.6 g/dL (3.5-5.1); Alkaline Phosphatase 71 U/L (38-126); Anion Gap 10 mmol/L (4-12); Aspartate Amino Transferase 31 U/L (17-59); Bilirubin,Total 1.2 mg/dL (0.2-1.3); Blood Urea Nitrogen 17 mg/dL (9-20); Calcium 9.6 mg/dL (8.4-10.2); Carbon Dioxide 31 mmol/L (22-30); Chloride 100 mmol/L (98-107); Estimated CRCL calculation 108 ml/min; Estimated Glomerular Filt Rate > 60; Glucose 89 mg/dL (65-110); Lipase 321 U/L (23-300); Potassium 3.9 mmol/L (3.4-5.0); Sodium 141 mmol/L (137-145)
[2024-10-25 15:46] LABS: Partial Thromboplastin Time 29.4 Seconds (22.3-36.8)
--- NOTE | 2024-10-25 15:46 | ED.CHESTPAIN ---
HPI - Chest Pain General Chief Complaint: Chest Pain <Mandy Portillo PA-C - Last Filed: 10/25/24 15:49> Stated Complaint: chest pain <Mandy Portillo PA-C - Last Filed: 10/25/24 15:49> Time Seen by Provider: 10/25/24 21:38 <Mandy Portillo PA-C - Last Filed: 10/25/24 15:49> Focused HPI: 44 y/o M with no PMHx presents to the ED for A sore throat that started yesterday, chest pain and shortness of breath that started today. Patient states he went to urgent care prior to arrival and had a negative COVID, flu and strep test was advised to come to the ED for further evaluation. He states the pain is in the center of his chest and occurs when he coughs and takes a deep breath. is reporting a mild cough. Denies hemoptysis, lower extremity edema, recent surgeries or hospitalizations, history of cardiac disease, history of VTE. States he feels tired and weak. GENERAL: Well-appearing, well-nourished, and in no acute distress. HEAD: Normocephalic, atraumatic. CHEST: Clear to auscultation. ?No respiratory distress. HEART: Regular rate and rhythm.? NEURO: ?Alert and oriented x3. Patient screened in triage and initial orders placed.? ?Additional care and disposition to be based upon?diagnostic testing and treatment. <Mandy Portillo PA-C - Last Filed: 10/25/24 15:49> History of Present Illness HPI narrative: Agree with the HPI above, would like to add the patient recently underwent viral syndrome with flu-like illness over the last few weeks after son tested positive for flu A. Denies any pleuritic component to his chest pain, no leg pain or swelling, no trauma or recent injuries. <Trevon Godfrey MD - Last Filed: 10/25/24 22:07> Related Data Home Medications: Home Medications ?Medication ?Instructions ?Recorded ?Confirmed ?Last Taken ?Type lisinopril 10 1 tablet DAILY 02/04/22 07/09/23 Unknown History mg-hydrochlorothiazide 12.5 mg tablet apremilast 30 mg tablet (Otezla) mg PO 10/25/24 Unknown History <Mandy Portillo PA-C - Last Filed: 10/25/24 15:49> Allergies/Adverse Reactions: Allergies Allergy/AdvReac Type Severity Reaction Status Date / Time No Known Allergies Allergy Verified 10/25/24 13:57 <Mandy Portillo PA-C - Last Filed: 10/25/24 15:49> Review of Systems Review of Systems: As reviewed above in HPI <Trevon Godfrey MD - Last Filed: 10/25/24 22:07> PMFSH Past Medical History Medical History: Medical History Psoriasis Morbid obesity with BMI of 40.0-44.9, adult Hypertension Arthritis <Mandy Portillo PA-C - Last Filed: 10/25/24 15:49> Surgical History Surgical History: Surgical History History of cervical spinal surgery History of orthopedic surgery Right foot and ankle surgery <Mandy Portillo PA-C - Last Filed: 10/25/24 15:49> Family History Family History: Family History Father Cholelithiasis <Mandy Portillo PA-C - Last Filed: 10/25/24 15:49> Social History Social History: Social History Social History: Surrogate decision maker: Popeye Spencer, father. Code status: Full code. Smoking status: Former smoker Alcohol intake: never Substance use: never Spiritual care concerns: No <Mandy Portillo PA-C - Last Filed: 10/25/24 15:49> Exam Narrative: GENERAL: [Well-appearing, well-nourished, and in no acute distress.] HEAD: [Normocephalic, atraumatic.] EYES: [PERRLA and EOMI.] ENT: Posterior oropharynx with some mild erythema but no swelling, no difficulty swallowing, no pooling secretions. No posterior tonsillar exudates or any uvular deviation.. NECK: Supple. CHEST: [Clear to auscultation. No respiratory distress.] HEART: [Regular rate and rhythm]. No murmur heard. [Normal peripheral pulses.] ABDOMEN: [Soft, nondistended], [nontender], [No rigidity or guarding] EXTREMITIES: Normal range of motion. [No edema.] SKIN: Warm, dry, no rash. NEURO: [No focal deficits]. Alert and oriented [x3.] PSYCH: [Normal mood and affect.] <Trevon Godfrey MD - Last Filed: 10/25/24 22:07> Course Vital Signs Vital signs: Vital Signs Temperature 36.6 C 10/25/24 15:10 Pulse Rate 73 10/25/24 15:10 Respiratory Rate 17 10/25/24 15:10 Blood Pressure 131/48 L 10/25/24 15:10 Pulse Oximetry 98 10/25/24 15:10 Temperature 36.6 C 10/25/24 15:10 Pulse Rate 59 L 10/25/24 21:46 Respiratory Rate 19 10/25/24 21:46 Blood Pressure 153/84 H 10/25/24 21:46 Pulse Oximetry 99 10/25/24 21:46 Oxygen Delivery Room Air 10/25/24 21:43 <Mandy Portillo PA-C - Last Filed: 10/25/24 15:49> Vital Signs Temperature 36.6 C 10/25/24 15:10 Pulse Rate 73 10/25/24 15:10 Respiratory Rate 17 10/25/24 15:10 Blood Pressure 131/48 L 10/25/24 15:10 Pulse Oximetry 98 10/25/24 15:10 Temperature 36.6 C 10/25/24 15:10 Pulse Rate 59 L 10/25/24 21:46 Respiratory Rate 19 10/25/24 21:46 Blood Pressure 153/84 H 10/25/24 21:46 Pulse Oximetry 99 10/25/24 21:46 Oxygen Delivery Room Air 10/25/24 21:43 <Trevon Godfrey MD - Last Filed: 10/25/24 22:07> MDM - Chest Pain MDM Narrative Medical decision making narrative: 44-year-old male presenting with pharyngitis type symptoms associated with a cough that is causing him some chest pain shortness a breath throughout the day. Went to urgent care in tested negative for COVID, flu, RSV and strep throat. Came to the ER for evaluation of the chest pain at urgent cares request. Denies any cardiac history, was otherwise in his normal state of health. Recently had flu-like symptoms several weeks ago. He has strong 2+ pulses in both arms, warm extremities, clear breath sounds throughout, posterior or pharyngeal erythema without any exudates. Patient's symptomatology is likely from acute viral syndrome, viral pharyngitis, bronchitis, potential pneumonia, and very unlikely to be ACS or other equivalent given his reassuring exam, clinical exam and history. Will obtain troponin, EKG, chest x-ray, CBC CMP and lipase. He was given fluid bolus, Toradol for analgesia and Decadron for his pharyngitis. Patient's main concern is the pain with swallowing. He has no edema in the back of his throat or uvular deviation, no ANAESTHETIC TECHNICIAN/RPA concerns at this time based on exam. Workup revealed no leukocytosis or anemia. Normal platelet count. Normal coag studies. Normal electrolytes, normal BUN and creatinine, normal glucose, normal LFTs. Minor early elevated lipase at 321. Troponin is negative. Negative viral swabs. Chest x-ray shows no focal infiltrates or effusion. EKG shows no acute ischemia. Negative troponin. Patient is safe and stable for discharge home with regular PCP follow-up at this time will be given symptomatic treatment medications including prednisone and benzonatate and encouraged take Tylenol ibuprofen for any aches and pains. Patient verbalized understanding and was safe for discharge. <Trevon Godfrey MD - Last Filed: 10/25/24 22:07> Medical Records Data Attestation: I reviewed the patient's medical records. <Trevon Godfrey MD - Last Filed: 10/25/24 22:07> Lab Data Attestation: I reviewed the patient's lab results. <Trevon Godfrey MD - Last Filed: 10/25/24 22:07> Result diagrams: 10/25/24 15:16 10/25/24 15:16 <Mandy Portillo PA-C - Last Filed: 10/25/24 15:49> Labs: Lab Results 10/25/24 Range/Units 15:16 WBC 9.5 (4.5-10.0) K/mm3 RBC 5.10 (4.6-6.20) M/mm3 Hgb 15.5 (14.0-18.0) g/dL Hct 44.7 (42.0-52.0) % MCV 87.6 (80-100) fl MCH 30.4 (26-34) pg MCHC 34.7 (32-36) g/dl RDW 12.8 (11.5-14.5) % Plt Count 264 (150-375) k/mm3 MPV 10.9 H (7.4-10.4) fl Immature Gran % (Auto) 0.3 (0-0.5) % Neut % (Auto) 61.8 (45.5-73.1) % Lymph % (Auto) 22.4 (18.3-44.2) % [place] % (Auto) 10.2 H (2.6-8.5) % Eos % (Auto) 4.6 H (0-4.4) % Baso % (Auto) 0.7 (0.2-1.2) % Lymph # (Auto) 2.12 (0.9-3.2) K/mm3 [place] # (Auto) 1.0 H (0.1-0.6) K/mm3 Eos # (Auto) 0.4 H (0-0.3) K/mm3 Baso # (Auto) 0.1 (0.0-0.1) K/mm3 Abs Immat Gran (auto) 0.03 (0.00-0.031) K/mm3 Absolute Neuts (auto) 5.8 (1.3-6.7) K/mm3 Absolute Nucleated RBC 0.000 (0.0-0.012) K/mm3 Nucleated RBC % 0.0 (0.0-0.2) % PT 14.0 (11.1-14.7) Seconds INR 1.0 APTT 29.4 (22.3-36.8) Seconds Sodium 141 (137-145) mmol/L Potassium 3.9 (3.4-5.0) mmol/L Chloride 100 (98-107) mmol/L Carbon Dioxide 31 H (22-30) mmol/L Anion Gap 10 (4-12) mmol/L BUN 17 (9-20) mg/dL Creatinine 0.97 (0.7-1.3) mg/dL Estim Creat Clear Calc 108 ml/min Estimated GFR > 60 (59 - ) Glucose 89 (65-110) mg/dL Calcium 9.6 (8.4-10.2) mg/dL Total Bilirubin 1.2 (0.2-1.3) mg/dL AST 31 (17-59) U/L ALT 36 (6-50) U/L Alkaline Phosphatase 71 (38-126) U/L Troponin I < 0.012 (0.000-0.034) ng/mL Total Protein 8.0 (6.3-8.2) g/dL Albumin 4.6 (3.5-5.1) g/dL Lipase 321 H (23-300) U/L <Mandy Portillo PA-C - Last Filed: 10/25/24 15:49> Lab Results 10/25/24 Range/Units 15:16 WBC 9.5 (4.5-10.0) K/mm3 RBC 5.10 (4.6-6.20) M/mm3 Hgb 15.5 (14.0-18.0) g/dL Hct 44.7 (42.0-52.0) % MCV 87.6 (80-100) fl MCH 30.4 (26-34) pg MCHC 34.7 (32-36) g/dl RDW 12.8 (11.5-14.5) % Plt Count 264 (150-375) k/mm3 MPV 10.9 H (7.4-10.4) fl Immature Gran % (Auto) 0.3 (0-0.5) % Neut % (Auto) 61.8 (45.5-73.1) % Lymph % (Auto) 22.4 (18.3-44.2) % [place] % (Auto) 10.2 H (2.6-8.5) % Eos % (Auto) 4.6 H (0-4.4) % Baso % (Auto) 0.7 (0.2-1.2) % Lymph # (Auto) 2.12 (0.9-3.2) K/mm3 [place] # (Auto) 1.0 H (0.1-0.6) K/mm3 Eos # (Auto) 0.4 H (0-0.3) K/mm3 Baso # (Auto) 0.1 (0.0-0.1) K/mm3 Abs Immat Gran (auto) 0.03 (0.00-0.031) K/mm3 Absolute Neuts (auto) 5.8 (1.3-6.7) K/mm3 Absolute Nucleated RBC 0.000 (0.0-0.012) K/mm3 Nucleated RBC % 0.0 (0.0-0.2) % PT 14.0 (11.1-14.7) Seconds INR 1.0 APTT 29.4 (22.3-36.8) Seconds Sodium 141 (137-145) mmol/L Potassium 3.9 (3.4-5.0) mmol/L Chloride 100 (98-107) mmol/L Carbon Dioxide 31 H (22-30) mmol/L Anion Gap 10 (4-12) mmol/L BUN 17 (9-20) mg/dL Creatinine 0.97 (0.7-1.3) mg/dL Estim Creat Clear Calc 108 ml/min Estimated GFR > 60 (59 - ) Glucose 89 (65-110) mg/dL Calcium 9.6 (8.4-10.2) mg/dL Total Bilirubin 1.2 (0.2-1.3) mg/dL AST 31 (17-59) U/L ALT 36 (6-50) U/L Alkaline Phosphatase 71 (38-126) U/L Troponin I < 0.012 (0.000-0.034) ng/mL Total Protein 8.0 (6.3-8.2) g/dL Albumin 4.6 (3.5-5.1) g/dL Lipase 321 H (23-300) U/L <Trevon Godfrey MD - Last Filed: 10/25/24 22:07> Imaging Data Attestation: I personally reviewed and interpreted this imaging study as follows: <Trevon Godfrey MD - Last Filed: 10/25/24 22:07> My impression: Impressions Chest X-Ray 10/25/24 15:30 IMPRESSION: No focal infiltrate or effusion. <Trevon Godfrey MD - Last Filed: 10/25/24 22:07> ECG Data EKG #1: Attestation: I personally reviewed and interpreted this ECG as follows: <Trevon Godfrey MD - Last Filed: 10/25/24 22:07> ECG completion date: 10/25/24 <Trevon Godfrey MD - Last Filed: 10/25/24 22:07> ECG completion time: 21:42 <Trevon Godfrey MD - Last Filed: 10/25/24 22:07> Prior ECG tracings: available for review <Trevon Godfrey MD - Last Filed: 10/25/24 22:07> Interpretation: Regular for rhythm and axis, [place] interval of 155, QTC interval 388, QRS 104. Sinus bradycardia, no ST segment elevations, depressions or inversions. No significant interval change compared to previous EKG. Overall sinus. <Trevon Godfrey MD - Last Filed: 10/25/24 22:07> Discharge Plan Discharge Clinical Impression: Viral pharyngitis, Chest pain, Acute bronchitis, viral <Mandy Portillo PA-C - Last Filed: 10/25/24 15:49> Patient Disposition: Home, Self-Care <Mandy Portillo PA-C - Last Filed: 10/25/24 15:49> Condition: Stable <Mandy Portillo PA-C - Last Filed: 10/25/24 15:49> Instructions: Antibiotic Form, Pleurisy (ED), Pharyngitis (ED), Acute Bronchitis (ED), Chest Wall Pain (ED) <Mandy Portillo PA-C - Last Filed: 10/25/24 15:49> Additional Instructions: Your workup was very reassuring, no signs of pneumonia or bacterial infection, cardiac workup was unremarkable. You likely have a bronchitis and viral pharyngitis given your symptoms. Return with any new or worsening concerns otherwise follow-up with regular doctor and take the medications as prescribed. No indications for antibiotics at this time. <Mandy Portillo PA-C - Last Filed: 10/25/24 15:49> Patient Language: [place] <Mandy Portillo PA-C - Last Filed: 10/25/24 15:49> Prescriptions: New prednisone 50 mg tablet 50 mg PO DAILY 5 Days Qty: 5 0RF albuterol sulfate 90 mcg/actuation HFA aerosol inhaler 2 puff inhalation QID PRN (Reason: shortness of breath or wheezing) Qty: 8.5 0RF ondansetron 4 mg tablet,disintegrating 4 mg PO Q8H PRN (Reason: nausea and vomiting) Qty: 10 0RF No Action lisinopril-hydrochlorothiazide 10-12.5 mg tablet 1 tablet DAILY Otezla 30 mg tablet PO <Mandy Portillo PA-C - Last Filed: 10/25/24 15:49> Follow-up/Referrals: Luis Campos MD [Physician] - <Mandy Portillo PA-C - Last Filed: 10/25/24 15:49> Time of Disposition: 22:06 <Mandy Portillo PA-C - Last Filed: 10/25/24 15:49> 22:06 <Trevon Godfrey MD - Last Filed: 10/25/24 22:07>
[2024-10-25 15:52] LABS: Troponin I < 0.012 ng/mL (0.000-0.034)
--- OUTSIDE RECORDS SUMMARY | 2024-10-25 17:27 | XMS_ITS | Encounter Summary ---
Author Organization [facility] Address [address] [place] [address] Care Team Providers Care Spray Dyer Name Role Phone Eric Lopez MD Primary Care Provider [phone] Encounter Details Date Type Department Care Team (Late st Contact Info) Description 05/13/2024 Pediatric Biosciencet Message Enc [facility] Medical [facility] Family & Internal Medicine [address] [address] Eric Lopez MD [address] [place] [address] A1C Social History Tobacco Use Types [...] 11/18/2024 8:40 AM CDT Office Visit [facility] Medical Group Family & Internal Medicine [facility] [address] [place] [address] [place] [address] [place] [address] documented as of this encounter Visit Diagnoses Not on filedocumented in this encounter Additional Health Concerns Assessment Noted Time PHQ-9 Depression Total Score: 1 10/25/19 22 11:13 AM CLOTHES DESIGNER documented as of this encounter Care Teams Spray Dyer Relationship Specialty [place] [address] [place] [address] PCP - General FAMILY PRACTICE 07/07/18 documented as of this encounter
--- OUTSIDE RECORDS SUMMARY | 2024-10-25 17:27 | XMS_ITS | Continuity of Care Document ---
Author Organization [facility] Address [address] [place] [address] [address] [place] [address] Phone Care Team Providers Care Yard Hand Name Role Phone Avani Penn PT Unavailable Unavaila ble Procedures Procedure Date PT Evaluation Moderate Complexity Therapeutic Activities Neuromuscular Re-Ed Therapeutic Exercise Advance Directives Directive Yes / No Effective Date File Name No Information Encounters Encounter Description Practice Location Reason(s) For Visit Diagnoses Date Provider Providers Copied on Encounter [facility], [address] [place], [place] [address], [place], [place], [id number], [place] tel:[phone] [place] No Information Fili Varma . [address] [facility], [address], [place], [facility], [place]. tel:[phone] Referring Provider: Joe Travis, [facility] [address], [place], [address]. tel:[phone] Family History Family Member Type Diagnosis Age At Onset No Information Payers Payer name Insurance type Covered alliance party ID Authoriza tijennifer(s) [employer] [id number] [employer] EPO WC SP WC 00 Social [...]
--- OUTSIDE RECORDS SUMMARY | 2024-10-25 17:27 | XMS_ITS | Encounter Summary ---
Author Organization [facility] Address [address] [place] [address] Care Team Providers Care Yard Engineer Name Role Phone Eric Lopez MD Primary Care Provider [phone] Encounter Details Date Type Department Care Team (Late st Contact Info) Description 10/28/2023 RingCube Technologiest Message Enc [facility] Family & Internal [facility] [address] [place] [address] Eric Lopez MD [address] [place] [address] Lab work Social History Tobacco Use [...] [facility] Family [facility] Internal Medicine [facility] [address] [place] [address] [place] [address] [place] [address] documented as of this encounter Visit Diagnoses Not on filedocumented in this encounter Additional Health Concerns Assessment Noted Time PHQ-9 Depression Total Score: 1 10/25/19 22 11:13 AM SECURITY RISK ANALYST documented as of this encounter Care Teams Yard Engineer Relationship Specialty [place] [address] [place] [address] PCP - General FAMILY PRACTICE 07/07/18 documented as of this encounter
--- OUTSIDE RECORDS SUMMARY | 2024-10-25 17:27 | XMS_ITS | Encounter Summary ---
Author Organization [facility] Address [address] [place] [address] Care Team Providers Care Surgical Rn Name Role Phone Eric Lopez MD Primary Care Provider [phone] Encounter Details Date Type Department Care Team (Late st Contact Info) Description 06/25/2024 Iframe Appst Message Enc [facility] Medical Group Family & Internal Medicine [facility] [address] [place] [address] [place] [id number] [place] [address] Sciatic nerve Social History Tobacco Use [...] Description 11/18/2024 8:40 AM CDT Office Visit [facility] Medical Group Family & Internal Medicine [facility] [address] [place] [phone] [place] [address] [place] [address] documented as of this encounter Visit Diagnoses Not on filedocumented in this encounter Additional Health Concerns Assessment Noted Time PHQ-9 Depression Total Score: 1 10/25/19 22 11:13 AM ALEMITE OPERATOR documented as of this encounter Care Teams Surgical Rn Relationship Specialty [place] [address] [place], [place] [id number] PCP - General FAMILY PRACTICE 07/07/18 documented as of this encounter
--- OUTSIDE RECORDS SUMMARY | 2024-10-25 17:27 | XMS_ITS | Encounter Summary ---
Author Organization [facility] Address [address] [place] [address] Care Team Providers Care Fellmongery Worker Name Role Phone Eric Lopez MD Primary Care Provider [phone] Encounter Details Date Type Department Care Team (Late st Contact Info) Description 11/10/2023 Secret Spacet Message Enc [facility] Family & Internal [facility] [address] [place] [address] Eric Lopez MD [address] [place] [address] Metformin Social History Tobacco Use Types [...] Description 11/18/2024 8:40 AM CDT Office Visit [facility] Family & Internal Medicine [facility] [address] [place] [address] [place] [address] [place] [address] documented as of this encounter Visit Diagnoses Not on filedocumented in this encounter Additional Health Concerns Assessment Noted Time PHQ-9 Depression Total Score: 1 10/25/19 22 11:13 AM COPPER PLATE LITHOGRAPHER documented as of this encounter Care Teams Fellmongery Worker Relationship Specialty [place] [address] [place] [address] PCP - General FAMILY PRACTICE 07/07/18 documented as of this encounter
--- OUTSIDE RECORDS SUMMARY | 2024-10-25 17:27 | XMS_ITS | Encounter Summary ---
Author Organization [facility] Address [address] [place] [address] Care Team Providers Care Photographer'S Assistant Name Role Phone Eric Lopez MD Primary Care Provider [phone] Encounter Details Date Type Department Care Team (Late st Contact Info) Description 01/21/2024 UBmatrixt Message Enc [facility] Medical Group Family & Internal Medicine [facility] [address] [place] [address] [place] [address] [place] [address] Ozempic and otezla Social History Tobacco [...] 12:06 PM CDT Spoke with Madison at [facility] at [phone]. She states to escribe rx to [facility] in [place], [place]. Rx sent. documented in this encounter Plan of Treatment Upcoming Encounters Date Type Department Care Team (Late st Contact Info) Description 11/18/2024 8:40 AM CDT Office Visit [facility] Medical Group Family & Internal Medicine [facility] [address] [place] [address] [place] [address] [place] [address] documented as of this encounter Visit Diagnoses Not on filedocumented in this encounter Additional Health Concerns Assessment Noted Time PHQ-9 Depression Total Score: 1 10/25/19 22 11:13 AM SHAKE SAWYER documented as of this encounter Care Teams Photographer'S Assistant Relationship Specialty [place] [address] [place] [address] PCP - General FAMILY PRACTICE 07/07/18 documented as of this encounter
--- OUTSIDE RECORDS SUMMARY | 2024-10-25 17:27 | XMS_ITS | Encounter Summary ---
Author Organization [facility] Address [address] [place] [address] Care Team Providers Care Smt Machine Operator Name Role Phone Eric Lopez MD Primary Care Provider [phone] Encounter Details Date Type Department Care Team (Late st Contact Info) Description 06/08/2024 Sapphire Innovationt Message Enc [facility] Family & Internal Medicine [facility] [address] [place] [address] Eric Lopez MD [address] [place] [address] Abdominal pain Social History Tobacco Use [...] Description 11/18/2024 8:40 AM CDT Office Visit [facility] Medical Group Family & Internal Medicine [facility] [address] [place] [address] [place] [address] [place] [address] documented as of this encounter Visit Diagnoses Not on filedocumented in this encounter Additional Health Concerns Assessment Noted Time PHQ-9 Depression Total Score: 1 10/25/19 22 11:13 AM DIRECTOR OF BUSINESS APPLICATIONS documented as of this encounter Care Teams Smt Machine Operator Relationship Specialty [place] [address] [place] [address] PCP - General FAMILY PRACTICE 07/07/18 documented as of this encounter
--- OUTSIDE RECORDS SUMMARY | 2024-10-25 17:27 | XMS_ITS | Encounter Summary ---
Author Organization [facility] Address [address] [place] [address] Care Team Providers Care Barrel Dedenting Machine Operator Name Role Phone Eric Lopez MD Primary Care Provider [phone] Encounter Details Date Type Department Care Team (Late st Contact Info) Description 06/01/2024 Zoomyt Message Enc [facility] Medical Group Family & Internal Medicine [facility] [address] [place] [address] [place] Lopez [place] [id number] [place] [address] Lower back Social History Tobacco Use [...] Description 11/18/2024 8:40 AM CDT Office Visit [facility] Medical Group Family & Internal Medicine [facility] [address] [place] [address] [place] [address] [place] [address] documented as of this encounter Visit Diagnoses Not on filedocumented in this encounter Additional Health Concerns Assessment Noted Time PHQ-9 Depression Total Score: 1 10/25/19 22 11:13 AM CASH ROOM CLERK documented as of this encounter Care Teams Barrel Dedenting Machine Operator Relationship Specialty [place] [address] [place], [place] [address] PCP - General FAMILY PRACTICE 07/07/18 documented as of this encounter
--- OUTSIDE RECORDS SUMMARY | 2024-10-25 17:27 | XMS_ITS | Encounter Summary ---
Author Organization [facility] Address [address] [place] [address] Care Team Providers Care Chain Pegger Name Role Phone Eric Lopez MD Primary Care Provider [phone] Encounter Details Date Type Department Care Team (Late st Contact Info) Description 12/10/2023 at[employer]enu [facility] [place] [facility] [address] [place] [address] [facility] Provider Action Required Social History Tobacco Use [...] [facility] Medical Group Family & Internal Medicine [address] [address] Eric Lopez MD [address] [place], [place] [address] documented as of this encounter Visit Diagnoses Not on filedocumented in this encounter Additional Health Concerns Assessment Noted Time PHQ-9 Depression Total Score: 1 10/25/19 22 11:13 AM CORPORATE DEVELOPMENT INTERN documented as of this encounter Care Teams Chain Pegger Relationship Specialty [place] [address] [place] [address] PCP - General FAMILY PRACTICE 07/07/18 documented as of this encounter
--- OUTSIDE RECORDS SUMMARY | 2024-10-25 17:27 | XMS_ITS | Encounter Summary ---
Author Organization [facility] Address [address] [place] [address] Care Team Providers Care Green Jobs Trainer Name Role Phone Eric Lopez MD Primary Care Provider [phone] Encounter Details Date Type Department Care Team (Late st Contact Info) Description 09/15/2023 Health in Reacht Message Enc [facility] Medical Group Family & Internal Medicine [facility] [address] [place] [address] Eric Lopez MD [address] [place] [address] Blood work Social History Tobacco Use [...] a savings card if we prescribe basaglar RGIST/IMMUNOLOGIST PHYSICIAN * Sandrine Retana RN - 09/17/2023 6:25 PM CST A1C was 12.3. Ozempic is too expensive. He is on Metformin. What would you recommend for him? Thankyou! RGIST/IMMUNOLOGIST PHYSICIAN documented in this encounter Plan of Treatment Upcoming Encounters Date Type Department Care Team (Late st Contact Info) Description 11/18/2024 8:40 AM CDT Office Visit [facility] Medical Group Family & Internal Medicine [facility] [address] [place] [address] [place] [address] [place] [address] documented as of this encounter Visit Diagnoses Not on filedocumented in this encounter Additional Health Concerns Assessment Noted Time PHQ-9 Depression Total Score: 1 10/25/19 22 11:13 AM ALLERGIST/IMMUNOLOGIST PHYSICIAN documented as of this encounter Care Teams Green Jobs Trainer Relationship Specialty [place] [address] [place] [address] PCP - General FAMILY PRACTICE 07/07/18 documented as of this encounter
--- OUTSIDE RECORDS SUMMARY | 2024-10-25 17:27 | XMS_ITS | Continuity of Care Document ---
Author Organization [facility] Address [address] [place] [address] Phone Care Team Providers Care Housekeeping Coordinator Name Role Phone Xavier Mcintosh MD Unavailable Unavailable Advance Directives Directive Yes / No Effective Date File Name No Information Encounters Encounter Description Practice Location Reason(s) For Visit Diagnoses Date Provider Providers Copied on Encounter [facility], [address], [place], [place], [id number], tel:[phone] [facility] No Information Ar[facility]do [facility]. [address] , [place], [place], [id number], [place]. tel:[phone] Referring Provider: Keyshawn Covarrubias DO, [address], [place], [address]. tel:[phone] Family History Family Member Type Diagnosis Age At Onset No Information Payers Payer name Insurance type Covered green party ID Authoraniket berkowitzjennifer(s) DARIN JERMAINE [id number] Social History Type Description Quantity Date Captured [...]
--- OUTSIDE RECORDS SUMMARY | 2024-10-25 17:28 | XMS_ITS | Clinical Summary ---
Author Organization [facility] Address [address] [place] [address] Care Team Providers Care Telephone Order Dispatcher Name Role Phone Eric Lopez MD Primary Care Provider [phone] Allergies No known active allergies Medications Apremilast (OTEZLA) 10 & 20 & 30 MG Tablet Therapy PackIndications:P soriasis Take 1 Disp Pack by mouth see administration instructions. 55 each Active metFORMIN (GLUCOPHAGE) 1000 MG tabletIndications :Type 2 diabetes mellitus with stage 2 chronic kidney disease, without long-term current use of insulin ([facility] [place]) TAKE 1 TABLET(1000 MG) BY MOUTH TWICE [...] referral to Dr. Travis or Dr. Gonzalez [facility] in [place]. History of neck surgery 11/28/2022 Impingement syndrome [...] 10/15/2022 Assessment & Plan (10/18/2022 11:51 AM GRINDER GEAR): Continue with physical therapy next week. He also elected for a steroid injection into the right shoulder today. I will start him on Meloxicam 15 mg daily. If he has not improved we could consider and MR Arthrogram. We will follow up in 6 weeks. Morbid obesity with BMI of 4 0.0-44.9, adult ([facility]) 05/27/2022 Acute bilateral thoracic back pain 05/27/2022 [...] Date Type Department Care Team Description 10/06/2024 Mapplashart Message Enc [facility] Medical Group Family & Internal Medicine [address] [address] Eric Lopez MD Medication from [...] Description 11/18/2024 8:40 AM CDT Office Visit [facility] Medical Group Family & Internal Medicine - [address] [address] Eric Lopez MD [address] [place] [id number] Health Maintenance Due Date Last Done Comments [...] Influenza Adult (#1) 2024 07/02/2018 PHQ-2 (Physician [place]) 09/01/2024 12/15/2023 Lipid Panel 09/15/2024 09/15/2023, 05/26/2020 [...] complication, without long-term current use of insulin ([facility] [place]) LIPID PANEL Routine 09/15/2023 8:25 AM GRINDER GEAR UTI (urinary tract infection) from Last 3 Months or Most Recently Relevant to Health Maintenance Results * HEMOGLOBIN, GLYCOSYLATED (05/20/2024) HGB A1C 4.6 % -[id number] Kay [facility] [place] 05/20/2024 us Eric Lopez MD LABORATORY Final Resul t -[id number] ANKITA IBANEZ [place] [address] [place] [address], * (ABNORMAL) LIPID PANEL (09/15/2023 8:25 AM GRINDER GEAR) CHOLESTEROL 132 <200.0 MG/DL 09/15/2023 9:28 AM GRINDER GEAR [facility] TRIGLYCERIDES 191(H) <150 MG/DL 09/15/2023 9:28 AM GRINDER GEAR [facility] HDL 30(L) >40.0 MG/DL 09/15/2023 9:28 AM GRINDER GEAR [facility] LDL (CALCULATED) 64 <100 MG/DL 09/15/2023 9:28 AM GRINDER GEAR [facility] NON HDL CHOLESTEROL 102 <130 MG/DL 09/15/2023 9:28 AM GRINDER GEAR [facility] CHOL/HDL RATIO 4.4 0.0 - 4.5 09/15/2023 9:28 AM [facility] VLDL CALCULATION 38 5 - 55 MG/DL 09/15/2023 9:28 AM [facility] LIPID INTERPRETATION 09/15/2023 9:28 AM [facility] Comment: NIH CONCENSUS REPORT RECOMMENDATIONS: ADULT CHILD LOW RISK: CHOLESTEROL <200 <170 TRIGLYCERIDE <150 --- HDL >=60 --- LDL <100 <110 BORDERLINE: CHOLESTEROL 200-239 170-199 TRIGLYCERIDE 150-199 --- HDL 40-59 --- LDL 100-159 110-129 HIGH RISK: CHOLESTEROL >=240 >=200 TRIGLYCERIDE >=200 --- HDL <40 --- LDL >=160 >=130 09/15/2023 8:25 AM GRINDER GEAR Eric Lopez MD LABORATORY Final Resul t [facility] [address] [place] [address], from Last 3 Months or Most Recently Relevant to Health Maintenance [place] [place] [address] Care Teams Telephone Order Dispatcher Relationship Specialty [place] [address] [place] [address] PCP - General FAMILY PRACTICE 07/07/18
--- NOTE | 2024-10-25 21:37 | ECG_ITS ---
Test Date: 2024-10-25 21:42:15 Measurements Intervals [place] Rate: 58 P: 31 MA: 155 QRS: 43 QRSD: 104 T: 42 QT: 394 QTc: 388 Interpretive Statements SINUS BRADYCARDIA BASELINE ARTIFACT- I, III, AVL BORDERLINE ECG Compared to ECG 10/25/2024 15:08:05 HEART RATE HAS DECREASED Electronically Signed On 10-26-2024 06:47:16 LOCK TENDER CHIEF OPERATOR by David Greenwood D.O.
[2024-10-25 21:43] VITALS: O2SAT 99
[2024-10-25 21:46] VITALS: BP 153/84; PULSE 59; RESP 19; O2SAT 99
--- NOTE | 2024-10-25 21:49 | PC.NURSE ---
Patient states he had the flu a couple weeks ago. C/o cough since then, and pain in chest and throat when coughing. States the cough is hoarse but productive. Patient states he does have a history of bronchitis, pneumonia, and angina.
[2024-10-25 22:00] VITALS: BP 149/76; PULSE 57; RESP 17; O2SAT 98
--- OUTSIDE RECORDS SUMMARY | 2024-10-25 22:02 | XMS_ITS | Encounter Summary ---
Author Organization [facility] Address [address] [place] [address] Care Team Providers Care Parts Processor Name Role Phone Eric oLpez MD Primary Care Provider [phone] Encounter Details Date Type Department Care Team (Late st Contact Info) Description 09/15/2023 Hatcher Associatest Message Enc [facility] Medical Group Family & Internal Medicine [facility] [address] [place] [address] Eric Lopez MD [address] [place] [address] Blood work Social History Tobacco Use [...] a savings card if we prescribe basaglar ITY SYSTEMS TECHNICIAN * Sandrine Retana RN - 09/17/2023 6:25 PM CST A1C was 12.3. Ozempic is too expensive. He is on Metformin. What would you recommend for him? Thankyou! ITY SYSTEMS TECHNICIAN documented in this encounter Plan of Treatment Upcoming Encounters Date Type Department Care Team (Late st Contact Info) Description 11/18/2024 8:40 AM CDT Office Visit [facility] Medical Group Family & Internal Medicine [facility] [address] [place] [address] [place] [address] [place] [address] documented as of this encounter Visit Diagnoses Not on filedocumented in this encounter Additional Health Concerns Assessment Noted Time PHQ-9 Depression Total Score: 1 10/25/19 22 11:13 AM QUALITY SYSTEMS TECHNICIAN documented as of this encounter Care Teams Parts Processor Relationship Specialty [place] [address] [place] [address] PCP - General FAMILY PRACTICE 07/07/18 documented as of this encounter
--- OUTSIDE RECORDS SUMMARY | 2024-10-25 22:02 | XMS_ITS | Encounter Summary ---
Author Organization [facility] Address [address] [place] [address] Care Team Providers Care Cigarette Lighter Repairer Name Role Phone Eric Lopez MD Primary Care Provider [phone] Encounter Details Date Type Department Care Team (Late st Contact Info) Description 06/08/2024 Gravityt Message Enc [facility] Family & Internal Medicine [facility] [address] [place] [address] Eric Lopez MD [address] [place] [address] Abdominal pain Social History Tobacco Use [...] Description 11/18/2024 8:40 AM CDT Office Visit [facility] Medical Group Family & Internal Medicine [facility] [address] [place] [address] [place] [address] [place] [address] documented as of this encounter Visit Diagnoses Not on filedocumented in this encounter Additional Health Concerns Assessment Noted Time PHQ-9 Depression Total Score: 1 10/25/19 22 11:13 AM DOLL REPAIRER documented as of this encounter Care Teams Cigarette Lighter Repairer Relationship Specialty [place] [address] [place] [address] PCP - General FAMILY PRACTICE 07/07/18 documented as of this encounter
--- OUTSIDE RECORDS SUMMARY | 2024-10-25 22:02 | XMS_ITS | Encounter Summary ---
Author Organization [facility] Address [address] [place] [address] Care Team Providers Care Information Specialist Name Role Phone Eric Lopez MD Primary Care Provider [phone] Encounter Details Date Type Department Care Team (Late st Contact Info) Description 01/21/2024 Socrativet Message Enc [facility] Medical Group Family & Internal Medicine [facility] [address] [place] [address] [place] Lopez MD [id number] [place] [address] Ozempic and otezla Social History Tobacco [...] 12:06 PM CDT Spoke with Madison at [facility] at [phone]. She states to escribe rx to [facility] in [place], [place]. Rx sent. documented in this encounter Plan of Treatment Upcoming Encounters Date Type Department Care Team (Late st Contact Info) Description 11/18/2024 8:40 AM CDT Office Visit [facility] Medical Group Family & Internal Medicine [facility] [address] [place] [phone] [place] [address] [place] [address] documented as of this encounter Visit Diagnoses Not on filedocumented in this encounter Additional Health Concerns Assessment Noted Time PHQ-9 Depression Total Score: 1 10/25/19 22 11:13 AM ASTROCHEMIST documented as of this encounter Care Teams Information Specialist Relationship Specialty [place] [address] [place] [address] PCP - General FAMILY PRACTICE 07/07/18 documented as of this encounter
--- OUTSIDE RECORDS SUMMARY | 2024-10-25 22:02 | XMS_ITS | Encounter Summary ---
Author Organization [facility] Address [address] [place] [address] Care Team Providers Care Market Superintendent Name Role Phone Eric Lopez MD Primary Care Provider [phone] Encounter Details Date Type Department Care Team (Late st Contact Info) Description 12/10/2023 efectivox [facility] Patient Accounts [address] [place] [address] [facility] Provider Action Required Social History Tobacco [...] Description 11/18/2024 8:40 AM CDT Office Visit [facility] Medical Group Family & Internal Medicine [address] [address] Eric Lopez MD [address] [place], [place] [id number] documented as of this encounter Visit Diagnoses Not on filedocumented in this encounter Additional Health Concerns Assessment Noted Time PHQ-9 Depression Total Score: 1 10/25/19 22 11:13 AM KENNEL SUPERVISOR documented as of this encounter Care Teams Market Superintendent Relationship Specialty [place] [address] [place] [address] PCP - General FAMILY PRACTICE 07/07/18 documented as of this encounter
--- OUTSIDE RECORDS SUMMARY | 2024-10-25 22:02 | XMS_ITS | Continuity of Care Document ---
Author Organization [facility] Address [address] [place] [address] [address] [place] [address] Phone Care Team Providers Care Concrete Mixer Operator Helper Name Role Phone Avani Penn PT Unavailable Unavaila ble Procedures Procedure Date PT Evaluation Moderate Complexity Therapeutic Activities Neuromuscular Re-Ed Therapeutic Exercise Advance Directives Directive Yes / No Effective Date File Name No Information Encounters Encounter Description Practice Location Reason(s) For Visit Diagnoses Date Provider Providers Copied on Encounter [facility], [address] [place] [address], [place], [place], [id number], [place] tel:[phone] [place] No Information Fili Varma . [address] [facility], [address], [place], [facility], [place]. tel:[phone] Referring Provider: Joe Travis, [facility], [facility] [address], [place], [address]. tel:[phone] Family History Family Member Type Diagnosis Age At Onset No Information Payers Payer name Insurance type Covered alliance party ID Authoriza tijennifer(s) [employer] [id number] [employer] EPO WC SP WC 00 Social [...]
--- OUTSIDE RECORDS SUMMARY | 2024-10-25 22:02 | XMS_ITS | Clinical Summary ---
Author Organization [facility] Address [address] [place] [address] Care Team Providers Care Telecom Assistant Name Role Phone Eric Lopez MD Primary Care Provider [phone] Allergies No known active allergies Medications Apremilast (OTEZLA) 10 & 20 & 30 MG Tablet Therapy PackIndications:P soriasis Take 1 Disp Pack by mouth see administration instructions. 55 each Active metFORMIN (GLUCOPHAGE) 1000 MG tabletIndications :Type 2 diabetes mellitus with stage 2 chronic kidney disease, without long-term current use of insulin ([facility]) TAKE 1 TABLET(1000 MG) BY MOUTH TWICE [...] [facility] [place] History of neck surgery 11/28/2022 Impingement syndrome [...] 10/15/2022 Assessment & Plan (10/18/2022 11:51 AM JOINERY SETTER OUT): Continue with physical therapy next week. He also elected for a steroid injection into the right shoulder today. I will start him on Meloxicam 15 mg daily. If he has not improved we could consider and MR Arthrogram. We will follow up in 6 weeks. Morbid obesity with BMI of 4 0.0-44.9, adult ([facility]) 05/27/2022 Acute bilateral thoracic back pain 05/27/2022 [...] Date Type Department Care Team Description 10/06/2024 [employer] Message Enc [facility] Medical Group Family & Internal Medicine [address] [address] Eric Lopez MD Medication from [...] Description 11/18/2024 8:40 AM CDT Office Visit [facility] Medical Group Family & Internal Medicine - [address] [address] Eric Lopez MD [address] [place] [id number] Health Maintenance Due Date Last Done Comments [...] Influenza Adult (#1) 2024 07/02/2018 PHQ-2 (Physician [place]) 09/01/2024 12/15/2023 Lipid Panel 09/15/2024 09/15/2023, 05/26/2020 [...] complication, without long-term current use of insulin ([facility]) LIPID PANEL Routine 09/15/2023 8:25 AM JOINERY SETTER OUT UTI (urinary tract infection) from Last 3 Months or Most Recently Relevant to Health Maintenance Results * HEMOGLOBIN, GLYCOSYLATED (05/20/2024) HGB A1C 4.6 % -[id number] Kay [facility] [place] 05/20/2024 us Eric Lopez MD LABORATORY Final Resul t -[id number] [address] IBANE[address] [place] [address] [place] [address], * (ABNORMAL) LIPID PANEL (09/15/2023 8:25 AM JOINERY SETTER OUT) CHOLESTEROL 132 <200.0 MG/DL 09/15/2023 9:28 AM JOINERY SETTER OUT [facility] TRIGLYCERIDES 191(H) <150 MG/DL 09/15/2023 9:28 AM JOINERY SETTER OUT [facility] HDL 30(L) >40.0 MG/DL 09/15/2023 9:28 AM JOINERY SETTER OUT [facility] LDL (CALCULATED) 64 <100 MG/DL 09/15/2023 9:28 AM JOINERY SETTER OUT [facility] NON HDL CHOLESTEROL 102 <130 MG/DL 09/15/2023 9:28 AM JOINERY SETTER OUT [facility] CHOL/HDL RATIO 4.4 0.0 - 4.5 09/15/2023 9:28 AM [facility] VLDL CALCULATION 38 5 - 55 MG/DL 09/15/2023 9:28 AM [facility] LIPID INTERPRETATION 09/15/2023 9:28 AM [facility] Comment: NIH CONCENSUS REPORT RECOMMENDATIONS: ADULT CHILD LOW RISK: CHOLESTEROL <200 <170 TRIGLYCERIDE <150 --- HDL >=60 --- LDL <100 <110 BORDERLINE: CHOLESTEROL 200-239 170-199 TRIGLYCERIDE 150-199 --- HDL 40-59 --- LDL 100-159 110-129 HIGH RISK: CHOLESTEROL >=240 >=200 TRIGLYCERIDE >=200 --- HDL <40 --- LDL >=160 >=130 09/15/2023 8:25 AM JOINERY SETTER OUT Eric Lopez MD LABORATORY Final Resul t [facility] [address] [place] [address], from Last 3 Months or Most Recently Relevant to Health Maintenance [place] [address] [address] Care Teams Telecom Assistant Relationship Specialty [place] [address] [place] [address] PCP - General FAMILY PRACTICE 07/07/18
--- OUTSIDE RECORDS SUMMARY | 2024-10-25 22:02 | XMS_ITS | Encounter Summary ---
Author Organization [facility] Address [address] [place] [address] Care Team Providers Care Exploration Engineer Name Role Phone Eric Lopez MD Primary Care Provider [phone] Encounter Details Date Type Department Care Team (Late st Contact Info) Description 06/01/2024 Threshold Pharmaceuticalst Message Enc [facility] Medical Group Family & Internal Medicine [facility] [address] [place] [address] [place] Lopez [place] [id number] [place] [address] Lower back Social History Tobacco Use [...] Description 11/18/2024 8:40 AM CDT Office Visit [facility] Medical Group Family & Internal Medicine [facility] [address] [place] [phone] [place] [address] [place] [address] documented as of this encounter Visit Diagnoses Not on filedocumented in this encounter Additional Health Concerns Assessment Noted Time PHQ-9 Depression Total Score: 1 10/25/19 22 11:[address] DEPARTMENT documented as of this encounter Care Teams Exploration Engineer Relationship Specialty [place] [address] [place], [place] [id number] PCP - General FAMILY PRACTICE 07/07/18 documented as of this encounter
--- OUTSIDE RECORDS SUMMARY | 2024-10-25 22:02 | XMS_ITS | Encounter Summary ---
Author Organization [facility] Address [address] [place] [address] Care Team Providers Care Corn Detasseler Machine Operator Name Role Phone Eric Lopez MD Primary Care Provider [phone] Encounter Details Date Type Department Care Team (Late st Contact Info) Description 10/28/2023 [email or web address] Message Enc [facility] Family & Internal [facility] [address] [place] [address] Eric Lopez MD [address] [place] [address] Lab work Social History Tobacco Use [...] [facility] Family & Internal Medicine [facility] [address] [place] [address] [place] [address] [place] [address] documented as of this encounter Visit Diagnoses Not on filedocumented in this encounter Additional Health Concerns Assessment Noted Time PHQ-9 Depression Total Score: 1 10/25/19 22 11:13 AM NEONATAL DOCTOR documented as of this encounter Care Teams Corn Detasseler Machine Operator Relationship Specialty [place] [address] [place] [address] PCP - General FAMILY PRACTICE 07/07/18 documented as of this encounter
--- OUTSIDE RECORDS SUMMARY | 2024-10-25 22:02 | XMS_ITS | Encounter Summary ---
Author Organization [facility] Address [address] [place] [address] Care Team Providers Care Estate And Trust Tax Principal Name Role Phone Eric Lopez MD Primary Care Provider [phone] Encounter Details Date Type Department Care Team (Late st Contact Info) Description 06/25/2024 Snaptivat Message Enc [facility] Medical Group Family & Internal Medicine [facility] [address] [place] [address] [place] [address] [place] [address] Sciatic nerve Social History Tobacco Use [...] Description 11/18/2024 8:40 AM CDT Office Visit [facility] Medical Group Family & Internal Medicine [facility] [address] [place] [phone] [place] [address] [place] [address] documented as of this encounter Visit Diagnoses Not on filedocumented in this encounter Additional Health Concerns Assessment Noted Time PHQ-9 Depression Total Score: 1 10/25/19 22 11:13 AM REFRIGERATION PLANT CORK INSULATOR documented as of this encounter Care Teams Estate And Trust Tax Principal Relationship Specialty [place] [address] [place], [place] [id number] PCP - General FAMILY PRACTICE 07/07/18 documented as of this encounter
--- OUTSIDE RECORDS SUMMARY | 2024-10-25 22:02 | XMS_ITS | Encounter Summary ---
Author Organization [facility] Address [address] [place] [address] Care Team Providers Care Adult Basic Studies Teacher Name Role Phone Eric Lopez MD Primary Care Provider [phone] Encounter Details Date Type Department Care Team (Late st Contact Info) Description 11/10/2023 Biographicont Message Enc [facility] Family & Internal [facility] [address] [place] [address] Eric Lopez MD [address] [place] [address] Metformin Social History Tobacco Use Types [...] Description 11/18/2024 8:40 AM CDT Office Visit [facility] Family & Internal Medicine [facility] [address] [place] [address] [place] [address] [place] [address] documented as of this encounter Visit Diagnoses Not on filedocumented in this encounter Additional Health Concerns Assessment Noted Time PHQ-9 Depression Total Score: 1 10/25/19 22 11:13 AM SUPERVISOR GLUING documented as of this encounter Care Teams Adult Basic Studies Teacher Relationship Specialty [place] [address] [place] [address] PCP - General FAMILY PRACTICE 07/07/18 documented as of this encounter
--- OUTSIDE RECORDS SUMMARY | 2024-10-25 22:02 | XMS_ITS | Encounter Summary ---
Author Organization [facility] Address [address] [place] [address] Care Team Providers Care Plant Safety Leader Name Role Phone Eric Lopez MD Primary Care Provider [phone] Encounter Details Date Type Department Care Team (Late st Contact Info) Description 05/13/2024 [email or web address] Message Enc [facility] Medical [facility] Family & Internal Medicine [address] [address] Eric Lopez MD [address] [place] [address] A1C Social History Tobacco Use Types [...] Description 11/18/2024 8:40 AM CDT Office Visit [facility] Medical Group Family & Internal Medicine [facility] [address] [place] [address] [place] [address] [place] [address] documented as of this encounter Visit Diagnoses Not on filedocumented in this encounter Additional Health Concerns Assessment Noted Time PHQ-9 Depression Total Score: 1 10/25/19 22 11:13 AM CHEMICAL RESEARCH WORKER documented as of this encounter Care Teams Plant Safety Leader Relationship Specialty [place] [address] [place] [address] PCP - General FAMILY PRACTICE 07/07/18 documented as of this encounter
--- OUTSIDE RECORDS SUMMARY | 2024-10-25 22:02 | XMS_ITS | Continuity of Care Document ---
Author Organization [facility] Address [address] [place] [address] Phone Care Team Providers Care Fish Trapper Name Role Phone Xavier Mcintosh MD Unavailable Unavailable Advance Directives Directive Yes / No Effective Date File Name No Information Encounters Encounter Description Practice Location Reason(s) For Visit Diagnoses Date Provider Providers Copied on Encounter [facility], [address], [place], [place], [address], tel:[phone] [facility] No Information [facility]. [address] , [place], [place], [address], [place]. tel:[phone] Referring Provider: Keyshawn Covarrubias DO, [address], [place], [address]. tel:[phone] Family History Family Member Type Diagnosis Age At Onset No Information Payers Payer name Insurance type Covered alliance party ID Authoraniket berkowitzjennifer(s) DARIN JERMAINE [id number] Social History Type Description Quantity Date Captured [...]
[2024-10-25] MEDS: BENZONATATE 100 MG CAPSULE 200 MG PO (22:20)
[2024-10-25] MEDS: dexAMETHasone SOD PHOS INJ 10 MG/ML 1 ML VIAL IV PUSH (22:20)
[2024-10-25] MEDS: KETOROLAC 15 MG/ML VIAL (*BKC) IV PUSH (22:21)
[2024-10-25] MEDS: LACTATED RINGERS 1,000 ML 999 ML IV CONT (22:21)
[2024-10-25 23:22] VITALS: BP 142/78; PULSE 87; RESP 15; O2SAT 100
== END 2024-10-25 23:23 | disposition home or self-care (01) ==
PROVIDERS: Emergency Medicine; Emergency Provider Student in an Organized Health Care Education/Training Program; PCP Family Medicine
DX: J20.8 Acute bronchitis due to other specified organisms (principal); J02.9 Acute pharyngitis, unspecified; R07.9 Chest pain, unspecified; I10 Essential (primary) hypertension; E66.01 Morbid (severe) obesity due to excess calories; L40.9 Psoriasis, unspecified; M19.90 Unspecified osteoarthritis, unspecified site; Z87.891 Personal history of nicotine dependence; Z79.899 Other long term (current) drug therapy; R00.1 Bradycardia, unspecified; I45.10 Unspecified right bundle-branch block
CPT/HCPCS: 36415; 71046; 80053; 83690; 84484; 85025; 85610; 85730; 93005; 96361; 96374; 96375; 99284; A9270; J1100; J1885; J7120

== ENCOUNTER 2024-11-22 10:06 | Emergency (ER) | payer BC, SELFPAY ==
--- NOTE | ~2024-11-22 | XR_ITS ---
XR foot RT min 3V Ordering provider: Eryn Vincent APRN History: . injury DROPPED HOCKEY EQUIP ONTO RT 5TH DIGIT BRUISING . Comparison: None. FINDINGS: BONES: No acute fracture or dislocation. JOINT SPACES: Normal. No tarsal coalition. SOFT TISSUES: Normal. Calcaneal spur. Ossification of the insertion of the tendo Achilles. IMPRESSION: No acute osseous abnormality of the right foot. Reviewed, dictated and finalized at location A.
[2024-11-22 10:19] VITALS: BP 127/66; PULSE 54; RESP 15; TEMP 36.4; O2SAT 100
--- OUTSIDE RECORDS SUMMARY | 2024-11-22 11:34 | XMS_ITS | Encounter Summary ---
Author Organization [facility] Address [address] [place] [address] Care Team Providers Care Brass Instrument Repair Technician Name Role Phone Eric Lopez MD Primary Care Provider [phone] Encounter Details Date Type Department Care Team (Late st Contact Info) Description 12/10/2023 triptap Message [facility] Patient Accounts [address] [place] [address] [facility] Provider Action Required Social History Tobacco [...] as of this encounter Plan of Treatment Not on file documented as of this encounter Visit Diagnoses Not on filedocumented in this encounter Additional Health Concerns Assessment Noted Time PHQ-9 Depression Total Score: 1 10/25/19 22 11:13 AM CAMP GUARD documented as of this encounter Care Teams Brass Instrument Repair Technician Relationship Specialty [place] [address] [address] [facility] [address] PCP - General FAMILY PRACTICE 07/07/18 documented as of this encounter
--- OUTSIDE RECORDS SUMMARY | 2024-11-22 11:34 | XMS_ITS | Encounter Summary ---
Author Organization [facility] Address [address] [place] [address] Care Team Providers Care What Job Titles Mean Name Role Phone Eric Lopez MD Primary Care Provider [phone] Encounter Details Date Type Department Care Team (Late st Contact Info) Description 11/10/2023 ImmunotEGGt Message Enc [facility] Medical Group Family & Internal Medicine [facility] [address] [place] [address] [place] Lopez [place] [address] [place] [address] Metformin Social History Tobacco Use Types [...] Total Score: 1 10/25/19 22 11:13 AM INSURANCE VERIFICATION REP documented as of this encounter Care Teams What Job Titles Mean Relationship Specialty [place] [address] [place] [address] PCP - General FAMILY PRACTICE 07/07/18 documented as of this encounter
--- OUTSIDE RECORDS SUMMARY | 2024-11-22 11:34 | XMS_ITS | Encounter Summary ---
Author Organization [facility] Address [address] [place] [address] Care Team Providers Care Can Filling And Closing Machine Tender Name Role Phone Eric Lopez MD Primary Care Provider [phone] Encounter Details Date Type Department Care Team (Late st Contact Info) Description 06/25/2024 360Learningt Message Enc [facility] Medical Group Family & Internal Medicine [facility] [address] [place] [address] [place] Lopez [place] [address] [place] [address] Sciatic nerve Social History Tobacco Use [...] documented in this encounter Plan of Treatment Not on file documented as of this encounter Visit Diagnoses Not on filedocumented in this encounter Additional Health Concerns Assessment Noted Time PHQ-9 Depression Total Score: 1 10/25/19 22 11:13 AM CAR SUPPLIER documented as of this encounter Care Teams Can Filling And Closing Machine Tender Relationship Specialty [place] [address] [place] [address] PCP - General FAMILY PRACTICE 07/07/18 documented as of this encounter
--- OUTSIDE RECORDS SUMMARY | 2024-11-22 11:34 | XMS_ITS | Encounter Summary ---
Author Organization [facility] Address [address] [place] [address] Care Team Providers Care Sample Washer Name Role Phone Eric Lopez MD Primary Care Provider [phone] Encounter Details Date Type Department Care Team (Late st Contact Info) Description 06/08/2024 Training Intelligence Message Enc [facility] Medical Group Family & Internal Medicine [facility] [address] [place] [address] [place] [address] [place] [address] Abdominal pain Social History Tobacco Use [...] Noted Time PHQ-9 Depression Total Score: 1 02/24/20 22 11:13 AM ERGONOMICS TECHNICIAN documented as of this encounter Care Teams Sample Washer Relationship Specialty [place] [address] [place] [address] PCP - General FAMILY PRACTICE 07/07/18 documented as of this encounter
--- OUTSIDE RECORDS SUMMARY | 2024-11-22 11:34 | XMS_ITS | Encounter Summary ---
Author Organization [facility] Address [address] [place] [address] Care Team Providers Care Programming Intern Name Role Phone Eric Lopez MD Primary Care Provider [phone] Encounter Details Date Type Department Care Team (Late st Contact Info) Description 06/01/[address] [facility] Medical Group Family & Internal Medicine [facility] [address] [place] [address] [place] Lopez [place] [id number] [place] [address] Lower back Social History Tobacco Use [...] 8:58 AM CDT Printed for Dr wilkinson advise. documented in this encounter Plan of Treatment Not on file documented as of this encounter Visit Diagnoses Not on filedocumented in this encounter Additional Health Concerns Assessment Noted Time PHQ-9 Depression Total Score: 1 10/25/19 22 11:13 AM GRAPHIC DESIGN TEACHER documented as of this encounter Care Teams Programming Intern Relationship Specialty [place] [address] [place] [address] PCP - General FAMILY PRACTICE 07/07/18 documented as of this encounter
--- OUTSIDE RECORDS SUMMARY | 2024-11-22 11:34 | XMS_ITS | Encounter Summary ---
Author Organization [facility] Address [address] [place] [address] Care Team Providers Care Advertising Sales Executive Name Role Phone Eric Lopez MD Primary Care Provider [phone] Encounter Details Date Type Department Care Team (Late st Contact Info) Description 11/17/2024 Openplayt Message Enc [facility] Medical Group Family & Internal Medicine [facility] [address] [place] [phone] Eric Lopez [place] [address] [place] [address] Appointment Social History Tobacco Use Types Packs/Day Years [...] Total Score: 1 10/25/19 22 11:13 AM MANAGER PSYCHIATRY documented as of this encounter Care Teams Advertising Sales Executive Relationship Specialty [place] [address] [place] [address] PCP - General FAMILY PRACTICE 07/07/18 documented as of this encounter
--- OUTSIDE RECORDS SUMMARY | 2024-11-22 11:34 | XMS_ITS | Clinical Summary ---
Author Organization [facility] Address [address] [place] [address] Care Team Providers Care Vendor Management Associate Name Role Phone Eric Lopez MD Primary Care Provider [phone] Allergies No known active allergies Medications Apremilast (OTEZLA) 10 & 20 & 30 MG Tablet Therapy PackIndications:Ps oriasis Take 1 Disp Pack by mouth see administration instructions. 55 each 01/29/20 24 Active metFORMIN (GLUCOPHAGE) 1000 MG tabletIndications: Type 2 diabetes mellitus with stage 2 chronic kidney disease, without long-term current use of insulin ([facility]) TAKE 1 TABLET(1000 MG) BY MOUTH TWICE DAILY WITH MEALS 180 tablet 1 02/04/20 24 Active diazePAM (VALIUM) 5 MG tabletIndications: Benign paroxysmal positional vertigo due to bilateral vestibular disorder Take 1-2 tabs every 6 hours as needed for vertigo 30 tablet 04/29/20 24 Active Additional Information Patient not taking.Reported on 05/20/2024 semaglutide (OZEMPIC, 0.25 OR 0.5 MG/DOSE,) 2 MG/3ML injection (PEN)Indications:D iabetes Mellitus Inject 0.5 mg into the skin every 7 days. Indications: Diabetes 3 mL 05/13/20 24 Active ondansetron (ZOFRAN-ODT) 4 MG disintegrating tablet Take 1 tablet (4 mg total) by mouth every 8 (eight) hours as needed. 20 tablet 06/05/20 24 Active predniSONE (DELTASONE) 20 MG tabletIndications: Sciatica Take 2 tablets by mouth daily for 5 days. 10 tablet 06/25/20 24 Active lisinopril-hydroCH LOROthiazide (ZESTORETIC) 10-12.5 MG tabletIndications: Primary hypertension TAKE 1 TABLET BY MOUTH DAILY 90 tablet 1 10/11/19 Active albuterol sulfate HFA 108 (90 Base) MCG/ACT inhaler INHALE 2 PUFFS BY MOUTH FOUR TIMES DAILY NEEDED FOR SHORTNESS OF BREATH OR WHEEZING 10/26/19 Active Hospital, Clinic, or Other Facility Administered Medication [...] referral to Dr. Travis or Dr. Gonzalez [facility] in [place]. History of neck surgery 11/28/2022 Impingement syndrome [...] 10/15/2022 Assessment & Plan (10/18/2022 11:51 AM CUSTOMER EXPERIENCE ANALYST): Continue with physical therapy next week. He also elected for a steroid injection into the right shoulder today. I will start him on Meloxicam 15 mg daily. If he has not improved we could consider and MR Arthrogram. We will follow up in 6 weeks. Morbid obesity with BMI of 40.0-44.9, adult 05/03 Acute bilateral thoracic back pain 05/27/2022 Chronic left-sided low back pain with left-sided sciatica 10/25/2021 Lumbar radicular pain 08/11/2020 Psoriasis, unspecified 05/23/2020 HTN (hypertension) 07/02/2018 Obstructive sleep apnea 04/03/2018 Snoring 03/13/2018 Acid reflux 12/27/2016 Resolved Problems Problem Noted Date Diagnosed Date Resolved Date Foot pain 03/13/2018 04/30/2019 Wears contact lenses 11/04/2017 020 Wears glasses 11/04/2017 05/12/2020 Encounters Date Type Department Care Team Description 11/17/2024 MyChart Message Enc [facility] Family & Internal Medicine [address] [phone] Eric Lopez MD Appointment 10/25/2024 Scan [employer] HEALTH INFO SRVCS Scanned, Doc Med Group 10/06/2024 MyChart Message Enc [facility] Family & Internal [address] [phone] Eric Lopez MD Medication from [...] 06/05/2024 9:38 PM CDT Plan of Treatment Health Maintenance Due Date Last Done Comments [...] - 19+ 3-dose series) 2000 COVID-19 Vaccine ( - 2023-2 5 season) 2024 01/18/2022, 12/18/2021 Influenza Adult (#1) 2024 07/02/2018 PHQ-2 (Physician [place]) 09/01/2024 12/15/2023 Lipid Panel 09/15/2024 09/15/2023, 05/26/2020 [...] complication, without long-term current use of insulin LIPID PANEL Routine 09/15/2023 8:25 AM CUSTOMER EXPERIENCE ANALYST UTI (urinary tract infection) from Last 3 Months or Most Recently Relevant to Health Maintenance Results * HEMOGLOBIN, GLYCOSYLATED (05/20/2024) HGB A1C 4.6 % -[id number] Kay [facility] [place] 05/20/2024 us Eric Lopez MD LABORATORY Final Resul t Performing Organization Address City/State/[facility] Co de Phone Number -[phone] [facility] [place] [address] [place] [address], * (ABNORMAL) LIPID PANEL (09/15/2023 8:25 AM CUSTOMER EXPERIENCE ANALYST) CHOLESTEROL 132 <200.0 MG/DL 09/15/2023 9:28 AM [facility] TRIGLYCERIDES 191(H) <150 MG/DL 09/15/2023 9:28 AM [facility] HDL 30(L) >40.0 MG/DL 09/15/2023 9:28 AM [facility] LDL (CALCULATED) 64 <100 MG/DL 09/15/2023 9:28 AM [facility] NON HDL CHOLESTEROL 102 <130 MG/DL 09/15/2023 9:28 AM [facility] CHOL/HDL RATIO 4.4 0.0 - 4.5 09/15/2023 9:28 AM [facility] VLDL CALCULATION 38 5 - 55 MG/DL 09/15/2023 9:28 AM CUSTOMER EXPERIENCE ANALYST [facility] LIPID INTERPRETATION 09/15/2023 9:28 AM CUSTOMER EXPERIENCE ANALYST [facility] Comment: NIH CONCENSUS REPORT RECOMMENDATIONS: ADULT CHILD LOW RISK: CHOLESTEROL <200 <170 TRIGLYCERIDE <150 --- HDL >=60 --- LDL <100 <110 BORDERLINE: CHOLESTEROL 200-239 170-199 TRIGLYCERIDE 150-199 --- HDL 40-59 --- LDL 100-159 110-129 HIGH RISK: CHOLESTEROL >=240 >=200 TRIGLYCERIDE >=200 --- HDL <40 --- LDL >=160 >=130 09/15/2023 8:25 AM CUSTOMER EXPERIENCE ANALYST us Eric Lopez MD LABORATORY Final Resul t [facility] [address] [place] [address], from Last 3 Months or Most Recently Relevant to Health Maintenance Insurance [address] [address] Care Teams Vendor Management Associate Relationship Specialty [place] [address] [place] [address] PCP - General FAMILY PRACTICE 07/07/18
--- OUTSIDE RECORDS SUMMARY | 2024-11-22 11:34 | XMS_ITS | Encounter Summary ---
Author Organization [facility] Address [address] [place] [address] Care Team Providers Care Servicing Manager Name Role Phone Eric Lopez MD Primary Care Provider [phone] Encounter Details Date Type Department Care Team (Late st Contact Info) Description 09/15/2023 Celsius Game [employer] Message Enc [facility] Family & Internal Medicine [facility] [phone] [place] [phone] Eric Lopez MD [address] [place] [address] Blood work Social History Tobacco Use [...] a savings card if we prescribe basaglar DYEING MACHINE TENDER * Sandrine Retana RN - 09/17/2023 6:25 PM CST A1C was 12.3. Ozempic is too expensive. He is on Metformin. What would you recommend for him? Thankyou! DYEING MACHINE TENDER documented in this encounter Plan of Treatment Not on file documented as of this encounter Visit Diagnoses Not on filedocumented in this encounter Additional Health Concerns Assessment Noted Time PHQ-9 Depression Total Score: 1 10/25/19 22 11:13 AM FELT DYEING MACHINE TENDER documented as of this encounter Care Teams Servicing Manager Relationship Specialty [place] [address] [place] [address] PCP - General FAMILY PRACTICE 07/07/18 documented as of this encounter
--- OUTSIDE RECORDS SUMMARY | 2024-11-22 11:34 | XMS_ITS | Encounter Summary ---
Author Organization [facility] Address [address] [place] [address] Care Team Providers Care Medical Record Clerk Name Role Phone Eric Lopez MD Primary Care Provider [phone] Encounter Details Date Type Department Care Team (Late st Contact Info) Description 10/28/2023 Bocandyt Message Enc [facility] Medical Group Family & Internal Medicine [facility] [phone] [place] [phone] Eric Lopez MD [address] [place] [address] Lab work Social History Tobacco Use [...] Total Score: 1 10/25/19 22 11:13 AM CARBONATION EQUIPMENT OPERATOR documented as of this encounter Care Teams Medical Record Clerk Relationship Specialty [place] [address] [place] [address] PCP - General FAMILY PRACTICE 07/07/18 documented as of this encounter
--- OUTSIDE RECORDS SUMMARY | 2024-11-22 11:34 | XMS_ITS | Encounter Summary ---
Author Organization [facility] Address [address] [place] [address] Care Team Providers Care Wound/Ostomy Clinical Nurse Specialist Name Role Phone Eric Lopez MD Primary Care Provider [phone] Encounter Details Date Type Department Care Team (Late st Contact Info) Description 01/21/2024 littleBits Electronicst Message Enc [facility] Medical Group Family & Internal Medicine [facility] [phone] [place] [phone] [place] [id number] [place] [address] Ozempic and otezla Social History Tobacco [...] 12:06 PM CDT Spoke with Madison at [facility] at [phone]. She states to escribe rx to [facility] in [place], [place]. Rx sent. documented in this encounter Plan of Treatment Not on file documented as of this encounter Visit Diagnoses Not on filedocumented in this encounter Additional Health Concerns Assessment Noted Time PHQ-9 Depression Total Score: 1 10/25/19 22 11:13 AM NIGHT STOCKER documented as of this encounter Care Teams Wound/Ostomy Clinical Nurse Specialist Relationship Specialty [place] [address] [place] [address] PCP - General FAMILY PRACTICE 07/07/18 documented as of this encounter
--- OUTSIDE RECORDS SUMMARY | 2024-11-22 11:34 | XMS_ITS | Encounter Summary ---
Author Organization [facility] Address [address] [place] [address] Care Team Providers Care Machine Striper Name Role Phone Eric Lopez MD Primary Care Provider [phone] Encounter Details Date Type Department Care Team (Late st Contact Info) Description 05/13/2024 [employer]t Message Enc [facility] Medical Group Family & Internal Medicine [facility] [phone] [place] [phone] [place] Lopez [place] [id number] [place] [address] A1C Social History Tobacco Use Types [...] Total Score: 1 10/25/19 22 11:13 AM CERTIFIER documented as of this encounter Care Teams Machine Striper Relationship Specialty [place] [address] [place] [address] PCP - General FAMILY PRACTICE 07/07/18 documented as of this encounter
--- NOTE | 2024-11-22 12:58 | ED_ITS ---
HPI - General Adult General Chief complaint: Extremity Injury, Lower Stated complaint: drop a hockey equipment bag on right foot Time Seen by Provider: 11/22/24 12:02 History of Present Illness HPI narrative: 44-year-old male presenting emergency department for evaluation for an injury to his right foot. Patient states yesterday he was caring his son's hockey way and dropped it on his right foot injuring his 4th and 5th toes. Patient does have ecchymosis between the 4th and 5th toes. Patient is diabetic and was concerned that this would complicate a possible toe fracture. Related Data Home Medications ?Medication ?Instructions ?Recorded ?Confirmed ?Last Taken ?Type lisinopril 10 1 tablet DAILY 02/04/22 07/09/23 Unknown History mg-hydrochlorothiazide 12.5 mg tablet apremilast 30 mg tablet (Otezla) mg PO 10/25/24 Unknown History Allergies Allergy/AdvReac Type Severity Reaction Status Date / Time No Known Allergies Allergy Verified 11/22/24 10:19 Review of Systems Review of Systems: All systems reviewed & are unremarkable except as noted in HPI and below PMFSH Past Medical History Medical History Psoriasis Morbid obesity with BMI of 40.0-44.9, adult Hypertension Arthritis Surgical History Surgical History History of cervical spinal surgery History of orthopedic surgery Right foot and ankle surgery Family History Family History Father Cholelithiasis Social History Social History Social History: Surrogate decision maker: Popeye Spencer, father. Code status: Full code. Smoking status: Former smoker Alcohol intake: never Substance use: never Spiritual care concerns: No Exam Narrative: APPEARANCE: Well appearing, no pain, no distress, well-nourished. HEAD: normocephalic, atraumatic. EYES: PERRLA/EOMI, conjunctivae clear. NOSE: Normal no drainage EARS:TMS clear with good light reflex. THROAT: Pharynx clear, no exudate. NECK: Supple. No adenopathy, no masses. RESPIRATORY: Airway patent, respirations nonlabored. Clear to auscultation bilaterally, no rales, rhonchi, wheezing. CARDIOVASCULAR: Regular rate and rhythm without murmurs rubs or gallops. ABDOMINAL: Soft, nontender, nondistended, normal bowel sounds MUSCULOSKELETAL: Ecchymosis to 5th toe. Distal foot tenderness to palpation, no ecchymosis of mid foot, no tenderness to ankle or tib-fib NEURO: Alert. Cranial nerves II through XII intact. Good gait. Good coordination SKIN: Warm, dry. Normal Color Course Vital Signs Vital signs: Vital Signs Temperature 97.5 F L 11/22/24 10:19 Pulse Rate 54 L 11/22/24 10:19 Respiratory Rate 15 11/22/24 10:19 Blood Pressure 127/66 11/22/24 10:19 Pulse Oximetry 100 11/22/24 10:19 Oxygen Delivery Room Air 11/22/24 10:19 Temperature 97.5 F L 11/22/24 10:19 Pulse Rate 54 L 11/22/24 10:19 Respiratory Rate 15 11/22/24 10:19 Blood Pressure 127/66 11/22/24 10:19 Pulse Oximetry 100 11/22/24 10:19 Oxygen Delivery Room Air 11/22/24 10:19 Medical Decision Making MDM Narrative Medical decision making narrative: 44-year-old male present to the emergency department for evaluation for injury to his right foot. X-ray is negative for acute fracture dislocation. Patient will be provided a postop shoe for comfort and offered crutches for limited weight-bearing. Patient was encouraged of close follow-up with his primary care physician. Patient was also educated on and care for a foot contusion and on the importance of close follow-up with primary care physician. Differential Diagnosis Differential Diagnosis: Fourth toe fracture, 5th toe fracture, mid foot fracture, mid foot contusion Vital Signs Vital Signs: Vital Signs Temperature 97.5 F L 11/22/24 10:19 Pulse Rate 54 L 11/22/24 10:19 Respiratory Rate 15 11/22/24 10:19 Blood Pressure 127/66 11/22/24 10:19 Pulse Oximetry 100 11/22/24 10:19 Oxygen Delivery Room Air 11/22/24 10:19 Temperature 97.5 F L 11/22/24 10:19 Pulse Rate 54 L 11/22/24 10:19 Respiratory Rate 15 11/22/24 10:19 Blood Pressure 127/66 11/22/24 10:19 Pulse Oximetry 100 11/22/24 10:19 Oxygen Delivery Room Air 11/22/24 10:19 Imaging Data Radiologist's impression: Impressions Foot X-Ray 11/22/24 11:14 IMPRESSION: No acute osseous abnormality of the right foot. Discharge Plan Discharge Clinical Impression: Contusion of foot Patient Disposition: Home, Self-Care Condition: Stable Instructions: Antibiotic Form, Crutch Instructions (ED), Foot Contusion (ED) Additional Instructions: Postop shoe for comfort, crutches for limited weight-bearing. Have close follow-up with your primary care physician. Patient Language: East Timorese Prescriptions: No Action lisinopril-hydrochlorothiazide 10-12.5 mg tablet 1 tablet DAILY Otezla 30 mg tablet PO prednisone 50 mg tablet 50 mg PO DAILY 5 Days Qty: 5 0RF albuterol sulfate 90 mcg/actuation HFA aerosol inhaler 2 puff inhalation QID PRN (Reason: shortness of breath or wheezing) Qty: 8.5 0RF ondansetron 4 mg tablet,disintegrating 4 mg PO Q8H PRN (Reason: nausea and vomiting) Qty: 10 0RF Follow-up/Referrals: John,Eric Mckeon MD [Primary Care Provider] -
--- NOTE | 2024-11-22 13:07 | PC.NURSE ---
Pt refused cruthces.
--- OUTSIDE RECORDS SUMMARY | 2024-11-22 14:02 | XMS_ITS | Encounter Summary ---
Author Organization [facility] Address [address] [place] [address] Care Team Providers Care Analytical Lab Technician Name Role Phone Eric Lopez MD Primary Care Provider [phone] Encounter Details Date Type Department Care Team (Late st Contact Info) Description 09/15/2023 [employer] Message Enc [facility] Medical Group Family & Internal Medicine [facility] [address] [place] [phone] Eric Lopez MD [address] [place] [address] Blood work Social History Tobacco Use [...] a savings card if we prescribe basaglar E CRITIC * Sandrine Retana RN - 09/17/2023 6:25 PM CST A1C was 12.3. Ozempic is too expensive. He is on Metformin. What would you recommend for him? Thankyou! E CRITIC documented in this encounter Plan of Treatment Not on file documented as of this encounter Visit Diagnoses Not on filedocumented in this encounter Additional Health Concerns Assessment Noted Time PHQ-9 Depression Total Score: 1 10/25/19 22 11:13 AM MOVIE CRITIC documented as of this encounter Care Teams Analytical Lab Technician Relationship Specialty [place] [address] [place] [address] PCP - General FAMILY PRACTICE 07/07/18 documented as of this encounter
--- OUTSIDE RECORDS SUMMARY | 2024-11-22 14:02 | XMS_ITS | Encounter Summary ---
Author Organization [facility] Address [address] [place] [address] Care Team Providers Care Assistant Federal Public Defender Name Role Phone Eric Lopez MD Primary Care Provider [phone] Encounter Details Date Type Department Care Team (Late st Contact Info) Description 12/10/2023 [employer] Message [facility] Patient Accounts [address] [place] [address] [facility] Provider Action Required Social History Tobacco Use [...] Total Score: 1 10/25/19 22 11:13 AM WOODWORK TEACHER documented as of this encounter Care Teams Assistant Federal Public Defender Relationship Specialty [place] [address] [address] [facility] [place] [address] PCP - General FAMILY PRACTICE 07/07/18 documented as of this encounter
--- OUTSIDE RECORDS SUMMARY | 2024-11-22 14:02 | XMS_ITS | Encounter Summary ---
Author Organization [facility] Address [address] [place] [address] Care Team Providers Care Mopper Name Role Phone Eric Lopez MD Primary Care Provider [phone] Encounter Details Date Type Department Care Team (Late st Contact Info) Description 11/17/2024 Code Green Networkst [address] Enc [facility] Medical Group Family & Internal Medicine [facility] [id number] [place] [phone] [place] Lopez [place] [id number] [place] [address] Appointment Social History Tobacco Use Types [...] Total Score: 1 10/25/19 22 11:13 AM BOILER SETTER documented as of this encounter Care Teams Mopper Relationship Specialty [place] [address] [place] [address] PCP - General FAMILY PRACTICE 07/07/18 documented as of this encounter
--- OUTSIDE RECORDS SUMMARY | 2024-11-22 14:02 | XMS_ITS | Encounter Summary ---
Author Organization [facility] Address [address] [place] [address] Care Team Providers Care Supervisor Remelt Name Role Phone Eric Lopez MD Primary Care Provider [phone] Encounter Details Date Type Department Care Team (Late st Contact Info) Description 11/10/2023 [employer] Message Enc [facility] Medical Group Family & Internal Medicine [facility] [address] [place] [phone] [place] [id number] [place] [address] Metformin Social History Tobacco Use Types [...] Total Score: 1 10/25/19 22 11:13 AM SUPERVISORY CBP OFFICER documented as of this encounter Care Teams Supervisor Remelt Relationship Specialty [place] [address] [place] [address] PCP - General FAMILY PRACTICE 07/07/18 documented as of this encounter
--- OUTSIDE RECORDS SUMMARY | 2024-11-22 14:02 | XMS_ITS | Encounter Summary ---
Author Organization [facility] Address [address] [place] [address] Care Team Providers Care Cook Morning Name Role Phone Eric Lopez MD Primary Care Provider [phone] Encounter Details Date Type Department Care Team (Late st Contact Info) Description 10/28/2023 Mediastayt Message Enc [facility] Medical Group Family & Internal Medicine [facility] [address] [place] [phone] Eric Lopez MD [address] [place] [address] Lab work Social History Tobacco Use [...] Total Score: 1 10/25/19 22 11:13 AM PARTS SALES REPRESENTATIVE documented as of this encounter Care Teams Cook Morning Relationship Specialty [place] [address] [place] [address] PCP - General FAMILY PRACTICE 07/07/18 documented as of this encounter
--- OUTSIDE RECORDS SUMMARY | 2024-11-22 14:02 | XMS_ITS | Encounter Summary ---
Author Organization [facility] Address [address] [place] [address] Care Team Providers Care Cath Lab Radiology Technician Name Role Phone Eric Lopez MD Primary Care Provider [phone] Encounter Details Date Type Department Care Team (Late st Contact Info) Description 01/21/2024 [employer] Advisorst Message Enc [facility] Medical Group Family & Internal Medicine [facility] [address] [place] [phone] [place] Lopez [place] [id number] [place] [address] Ozempic and otezla Social History Tobacco [...] 12:06 PM CDT Spoke with Madison at [facility] at [phone]. She states to escribe rx to [facility] in [place], [place]. Rx sent. documented in this encounter Plan of Treatment Not on file documented as of this encounter Visit Diagnoses Not on filedocumented in this encounter Additional Health Concerns Assessment Noted Time PHQ-9 Depression Total Score: 1 10/25/19 22 11:13 AM PLANT ETIOLOGIST documented as of this encounter Care Teams Cath Lab Radiology Technician Relationship Specialty [place] [address] [place] [address] PCP - General FAMILY PRACTICE 07/07/18 documented as of this encounter
--- OUTSIDE RECORDS SUMMARY | 2024-11-22 14:02 | XMS_ITS | Encounter Summary ---
Author Organization [facility] Address [address] [place] [address] Care Team Providers Care Technical Photographer Name Role Phone Eric Lopez MD Primary Care Provider [phone] Encounter Details Date Type Department Care Team (Late st Contact Info) Description 06/08/2024 Zoodak Message Enc [facility] Medical Group Family & Internal Medicine [facility] [address] [place] [phone] [place] Lopez [place] [id number] [place] [address] Abdominal pain Social History Tobacco Use [...] Total Score: 1 02/24/20 22 11:13 AM THERAPY TECH documented as of this encounter Care Teams Technical Photographer Relationship Specialty [place] [address] [place] [address] PCP - General FAMILY PRACTICE 07/07/18 documented as of this encounter
--- OUTSIDE RECORDS SUMMARY | 2024-11-22 14:02 | XMS_ITS | Encounter Summary ---
Author Organization [facility] Address [address] [place] [address] Care Team Providers Care Case Management Director Name Role Phone Eric Lopez MD Primary Care Provider [phone] Encounter Details Date Type Department Care Team (Late st Contact Info) Description 05/13/2024 [employer] Message Enc [facility] Medical Group Family & Internal Medicine [facility] [address] [place] [phone] [place] Lopez [place] [address] [place] [address] A1C Social History Tobacco Use Types [...] Total Score: 1 10/25/19 22 11:13 AM COMMODITY SUPERVISOR documented as of this encounter Care Teams Case Management Director Relationship Specialty [place] [address] [place] [address] PCP - General FAMILY PRACTICE 07/07/18 documented as of this encounter
--- OUTSIDE RECORDS SUMMARY | 2024-11-22 14:02 | XMS_ITS | Encounter Summary ---
Author Organization [facility] Address [address] [place] [address] Care Team Providers Care Ager Operator Name Role Phone Eric Lopez MD Primary Care Provider [phone] Encounter Details Date Type Department Care Team (Late st Contact Info) Description 06/01/2024 Pinguot Message Enc [facility] Medical Group Family & Internal Medicine [facility] [address] [place] [phone] [place] [id number] [place] [address] Lower back Social History Tobacco Use [...] Total Score: 1 10/25/19 22 11:13 AM PROCEDURES NURSE documented as of this encounter Care Teams Ager Operator Relationship Specialty [place] [address] [place] [address] PCP - General FAMILY PRACTICE 07/07/18 documented as of this encounter
--- OUTSIDE RECORDS SUMMARY | 2024-11-22 14:02 | XMS_ITS | Encounter Summary ---
Author Organization [facility] Address [address] [place] [address] Care Team Providers Care Processing Rep Name Role Phone Eric Lopez MD Primary Care Provider [phone] Encounter Details Date Type Department Care Team (Late st Contact Info) Description 06/25/2024 KnowledgeVisiont Message Enc [facility] Medical Group Family & Internal Medicine [facility] [id number] [place] [phone] [place] [id number] [place] [address] Sciatic nerve Social History Tobacco Use [...] Total Score: 1 10/25/19 22 11:13 AM FLOORING GRADER documented as of this encounter Care Teams Processing Rep Relationship Specialty [place] [address] [place] [address] PCP - General FAMILY PRACTICE 07/07/18 documented as of this encounter
--- OUTSIDE RECORDS SUMMARY | 2024-11-22 14:02 | XMS_ITS | Clinical Summary ---
Author Organization [facility] Address [address] [place] [address] Care Team Providers Care Gluing Machine Feeder Name Role Phone Eric Lopez MD Primary Care Provider [phone] Allergies No known active allergies Medications Apremilast (OTEZLA) 10 & 20 & 30 MG Tablet Therapy PackIndications:Ps oriasis Take 1 Disp Pack by mouth see administration instructions. 55 each 01/29/20 24 Active metFORMIN (GLUCOPHAGE) 1000 MG tabletIndications: Type 2 diabetes mellitus with stage 2 chronic kidney disease, without long-term current use of insulin ([facility]) TAKE 1 TABLET(1000 MG) BY MOUTH [...] referral to Dr. Travis or Dr[facility] [place]. History of neck surgery 11/28/2022 Impingement syndrome [...] 10/15/2022 Assessment & Plan (10/18/2022 11:51 AM DRAWING BOX TENDER): Continue with physical therapy next week. He [...] Care Team Description 11/17/2024 MyChart Message Enc [facility] Family & Internal Medicine [address] [phone] Eric Lopez MD Appointment 10/25/2024 Scan Writer.ly HEALTH INFO SRVCS Scanned, Doc [facility] 10/06/2024 MyChart Message Enc [facility] Family & Internal [address] [phone] Eric Lopez MD Medication from [...] Influenza Adult (#1) 2024 07/02/2018 PHQ-2 (Physician [place]) 09/01/2024 12/15/2023 Lipid Panel 09/15/2024 09/15/2023, 05/26/2020 [...] insulin LIPID PANEL Routine 09/15/2023 8:25 AM DRAWING BOX TENDER UTI (urinary tract infection) from Last 3 Months or Most Recently Relevant to Health Maintenance Results * HEMOGLOBIN, GLYCOSYLATED (05/20/2024) HGB A1C 4.6 % -[id number] Kay [facility] [place] 05/20/2024 us Eric Lopez MD LABORATORY Final Resul t Performing Organization Address City/State/[facility] Co de Phone Number -[phone] [facility] [place] [address] [place] [address], * (ABNORMAL) LIPID PANEL (09/15/2023 8:25 AM DRAWING BOX TENDER) CHOLESTEROL 132 <200.0 MG/DL 09/15/2023 9:28 AM [facility] TRIGLYCERIDES 191(H) <150 MG/DL 09/15/2023 9:28 AM [facility] HDL 30(L) >40.0 MG/DL 09/15/2023 9:28 AM [facility] LDL (CALCULATED) 64 <100 MG/DL 09/15/2023 9:28 AM [facility] NON HDL CHOLESTEROL 102 <130 MG/DL 09/15/2023 9:28 AM [facility] CHOL/HDL RATIO 4.4 0.0 - 4.5 09/15/2023 9:28 AM [facility] VLDL CALCULATION 38 5 - 55 MG/DL 09/15/2023 9:28 AM DRAWING BOX TENDER [facility] LIPID INTERPRETATION 09/15/2023 9:28 AM DRAWING BOX TENDER [facility] Comment: NIH CONCENSUS REPORT RECOMMENDATIONS: ADULT CHILD LOW RISK: CHOLESTEROL <200 <170 TRIGLYCERIDE <150 --- HDL >=60 --- LDL <100 <110 BORDERLINE: CHOLESTEROL 200-239 170-199 TRIGLYCERIDE 150-199 --- HDL 40-59 --- LDL 100-159 110-129 HIGH RISK: CHOLESTEROL >=240 >=200 TRIGLYCERIDE >=200 --- HDL <40 --- LDL >=160 >=130 09/15/2023 8:25 AM DRAWING BOX TENDER us Eric Lopez MD LABORATORY Final Resul t [facility] [address] [place] [address], from Last 3 Months or Most Recently Relevant to Health Maintenance [place] [address] [place] [address] Care Teams Gluing Machine Feeder Relationship Specialty [place] [address] [place] [address] PCP - General FAMILY PRACTICE 07/07/18
== END 2024-11-22 13:14 | disposition home or self-care (01) ==
PROVIDERS: Emergency Provider Emergency Medicine; PCP Family Medicine
DX: S90.31XA Contusion of right foot, initial encounter (principal); W22.8XXA Striking against or struck by other objects, initial encounter; I10 Essential (primary) hypertension; L40.9 Psoriasis, unspecified; Z87.891 Personal history of nicotine dependence
CPT/HCPCS: 73630; 99283

== ENCOUNTER 2025-03-20 15:44 | Emergency (ER) | payer BC, SELFPAY ==
[2025-03-20 15:51] VITALS: BP 132/75; PULSE 68; RESP 16; TEMP 36.1; O2SAT 98
--- NOTE | 2025-03-20 16:00 | ED_ITS ---
HPI - Skin/Abscess/Foreign Bdy General Chief complaint: Skin/Abscess/Foreign Body Stated complaint: INSECT BITE L ANKLE Time Seen by Provider: 03/20/25 15:51 Source: patient and RN notes reviewed Mode of arrival: ambulatory Limitations: no limitations History of Present Illness HPI narrative: Patient presents today complaining of redness, swelling, pain surrounding an insect bite to the left lateral ankle that has been present since Friday and worsening since onset. Denies drainage or fever. Denies history of abscesses, boils, staph infections, MRSA. No [id number] treatment prior to arrival. Patient takes Otezla for his psoriasis. Related Data Home Medications ?Medication ?Instructions ?Recorded ?Confirmed ?Last Taken ?Type lisinopril 10 1 tablet DAILY 02/04/22 07/09/23 Unknown History mg-hydrochlorothiazide 12.5 mg tablet apremilast 30 mg tablet (Otezla) mg PO 10/25/24 Unknown History Allergies Allergy/AdvReac Type Severity Reaction Status Date / Time No Known Allergies Allergy Verified 03/20/25 15:45 PMFSH Past Medical History Medical History Psoriasis Morbid obesity with BMI of 40.0-44.9, adult Hypertension Arthritis Surgical History Surgical History History of cervical spinal surgery History of orthopedic surgery Right foot and ankle surgery Family History Family History Father Cholelithiasis Social History Social History Social History: Surrogate decision maker: Popeye Spencer, father. Code status: Full code. Smoking status: Former smoker Alcohol intake: never Substance use: never Spiritual care concerns: No Comments At time of signature, I have reviewed and agree with nursing past medical, surgical, social and family history unless otherwise noted. Please see nursing chart for further information. There is no relevant family history pertinent to the presenting complaint Exam Narrative: GENERAL: Well-appearing, well-nourished, and in no acute distress. HEAD: Normocephalic, atraumatic. EYES: EOMI. No redness or drainage. Conjunctivae normal. ENT: Mucous membranes pink and moist. NECK: Normal AROM. CHEST: No respiratory distress. EXTREMITIES: Left ankle: Exam by 4 cm area erythema, induration, tenderness with a tiny circular scabbed puncture wound in the center consistent with an insect bite to the area of the lateral malleolus. Increased warmth noted as well. Distal sensation intact. Capillary refill. No red streaking noted. No fluctuance noted. Full range of motion of the ankle. SKIN: Warm, dry. Capillary refill normal. Normal skin turgor. Psoriatic lesions to the patella NEURO: No focal deficits. Alert and oriented x3. Gait steady. PSYCH: Normal affect. No signs of depression or anxiety. Course Course Level of Care: Express Care Visit Vital Signs Vital signs: Vital Signs Temperature 96.9 F L 03/20/25 15:51 Pulse Rate 68 03/20/25 15:51 Respiratory Rate 16 03/20/25 15:51 Blood Pressure 132/75 03/20/25 15:51 Pulse Oximetry 98 03/20/25 15:51 Temperature 96.9 F L 03/20/25 15:51 Pulse Rate 68 03/20/25 15:51 Respiratory Rate 16 03/20/25 15:51 Blood Pressure 132/75 03/20/25 15:51 Pulse Oximetry 98 03/20/25 15:51 Reviewed MDM - Skin/Abscess/Foreign Bdy MDM Narrative Medical decision making narrative: 44-year-old male patient with history of psoriasis for which he takes Otezla presents today with an insect bite to left lateral ankle with surrounding erythema, increased warmth, swelling, and tenderness to palpation x2 days. No OTC treatment prior to arrival. Upon exam there is no fluctuance, but positive for induration. Patient will be started on a course of Keflex for cellulitis. Vital signs stable. Anticipatory guidance and ED precautions given. Differential Diagnosis Differential diagnosis: Likely abscess of skin or subcutaneous tissue, cellulitis and insect bites Critical Care Time Critical Care Time Critical Care Time: No Discharge Plan Discharge Clinical Impression: Infected insect bite Qualifiers: Encounter type: initial encounter Qualified Code(s): W57.XXXA - Bitten or stung by nonvenomous insect and other nonvenomous arthropods, initial encounter Patient Disposition: Home Condition: Stable Instructions: Antibiotic Form, Cellulitis (ED) Additional Instructions: Please take the Keflex as prescribed until gone. Take Tylenol or ibuprofen if needed for pain. Follow-up with your PCP in 3 days if symptoms are not improving. As discussed, please go to the ER immediately if you develop worsening symptoms such as fever greater than 100.3 or red streaking up your leg. Your blood pressure was elevated above 120/80 today at Urgent Care. This puts you above the threshold for follow up. Please schedule a followup visit with your personal physician as soon as possible, for further evaluation and treatment. Even blood pressure exceeding 120/80 may indicate pre-hypertension. Patient Language: [place] Islander Prescriptions: New cephalexin 500 mg capsule 500 mg PO Q6H 7 Days Qty: 28 0RF No Action lisinopril-hydrochlorothiazide 10-12.5 mg tablet 1 tablet DAILY Otezla 30 mg tablet PO albuterol sulfate 90 mcg/actuation HFA aerosol inhaler 2 puff inhalation QID PRN (Reason: shortness of breath or wheezing) Qty: 8.5 0RF Follow-up/Referrals: John,Eric Mckeon MD [Primary Care Provider] - Time of Disposition: 16:00
== END 2025-03-20 16:05 | disposition home or self-care (01) ==
PROVIDERS: Emergency Provider Nurse Practitioner; PCP Family Medicine
DX: S90.562A Insect bite (nonvenomous), left ankle, initial encounter (principal); L08.9 Local infection of the skin and subcutaneous tissue, unspecified; W57.XXXA Bitten or stung by nonvenomous insect and other nonvenomous arthropods, initial encounter; Z87.891 Personal history of nicotine dependence; I10 Essential (primary) hypertension; M19.90 Unspecified osteoarthritis, unspecified site; L40.9 Psoriasis, unspecified; E66.01 Morbid (severe) obesity due to excess calories; Z68.32 Body mass index [BMI] 32.0-32.9, adult
CPT/HCPCS: 99213; G0463

== ENCOUNTER 2025-05-09 19:02 | Emergency (ER) | payer BC, SELFPAY ==
--- OUTSIDE RECORDS SUMMARY | 2018-07-16 06:30 | XMS_ITS | Continuity of Care Document ---
Author Organization [facility] Address [address] [place] [address] Phone Care Team Providers Care Head Of Marketing Analytics Name Role Phone Xavier Mcintosh MD Unavailable Unavailable Advance Directives Directive Yes / No Effective Date File Name No Information Encounters Encounter Description Practice Location Reason(s) For Visit Diagnoses Date Provider Providers Copied on Encounter [facility], [address], [place], [place], [id number], tel:[phone] [facility] No Information Arnaldo Park. [address] , [place], [place], [address], [place]. tel:[phone] Referring Provider: Keyshawn Covarrubias DO, [address], [place], [address]. tel:[phone] Family History Family Member Type Diagnosis Age At Onset No Information Payers Payer name Insurance type Covered republican ID Authoraniket berkowitzjennifer(s) DARIN JERMAINE [id number] Social History Type Description Quantity Date Captured Comments Sex Male Smoking Status No Information Chief Complaint And Reason For Visit No Information Reason For Referral Reason For Referral No Information History Of Present Illness Encounter Date Complaint History Of Prese nt Illness No Information Functional Status Date Functional Assessmen t No Information Instructions Date Instruction Additional Infor mation No Information Assessments Type Assessment Date No Information Patient Care Teams Name Effective Dates (start - stop) Status Members No Information
--- OUTSIDE RECORDS SUMMARY | 2018-07-16 06:30 | XMS_ITS | Continuity of Care Document ---
Author Organization [facility] Address [address] [place] [address] Phone Care Team Providers Care Cotton Converter Name Role Phone Xavier Mcintosh MD Unavailable Unavailable Advance Directives Directive Yes / No Effective Date File Name No Information Encounters Encounter Description Practice Location Reason(s) For Visit Diagnoses Date Provider Providers Copied on Encounter [facility], [address], [place], [place], [id number], tel:[phone] [facility] No Information Arnaldo [facility]. [address] , [place], [place], [id number], [place]. tel:[phone] Referring Provider: Keyshawn Covarrubias DO, [address], [place], [address]. tel:[phone] Family History Family Member Type Diagnosis Age At Onset No Information Payers Payer name Insurance type Covered alliance party ID Authoraniket berkowitzjennifer(s) DARIN JERMAINE [id number] Social History Type Description Quantity Date Captured [...]
--- OUTSIDE RECORDS SUMMARY | 2023-04-17 06:00 | XMS_ITS | Continuity of Care Document ---
Author Organization [facility] Address [address] [place] [address] Phone Care Team Providers Care Bail Bond Agent Name Role Phone Avani Penn PT Unavailable Unavaila ble Procedures Procedure Date PT Evaluation Moderate Complexity Therapeutic Activities Neuromuscular Re-Ed Therapeutic Exercise Advance Directives Directive Yes / No Effective Date File Name No Information Encounters Encounter Description Practice Location Reason(s) For Visit Diagnoses Date Provider Providers Copied on Encounter [facility], [address] [place], [place] [address] [address], [place], [place], [id number], [place] tel:[phone] [place] No Information Fili Varma . [address], [address], [place], [facility], [place]. tel:[phone] Referring Provider: Joe Travis, [facility], [place], [address]. tel:[phone] Family History Family Member Type Diagnosis Age At Onset No Information Payers Payer name Insurance type Covered alliance party ID Authoriza tijennifer(s) [employer] WC [id number] [employer] EPO WC SP WC 00 Social History Type Description Quantity Date Captured Comments Alcohol Use Details Unknown Caffeine Use Details Unknown Tobacco Use Status Current non-smoker Smoking Status Never smoker Non-Smoking Tobacco Use Details : No Details Available : No Details Available Sex Male Vital Signs Date / Time: Height Weight BMI Pulse Rate Blood Pressure Temperature Respiratory Rate Body Surface Area Head Circumference Head Circ. Percentile Wt./Alberto. Percentile BMI percentile Pulse Ox Inhaled Ox 12:49 PM 72.00 in 154.220 kg (340.00 lbs) 46.1 1 kg/m eter (2) 2.80 meter(2) Chief Complaint And Reason For Visit No Information Reason For Referral Reason For Referral No Information History Of Present Illness Encounter Date Complaint History Of Prese nt Illness No Information Functional Status Date Functional Assessmen t No Information Instructions Date Instruction Additional Infor mation Giving encouragement to exercise Related to Overweight Giving encouragement to exercise Related to Overweight Assessments Type Assessment Date No Information Patient Care Teams Name Effective Dates (start - stop) Status Members No Information
--- NOTE | ~2025-05-09 | XR_ITS ---
XR lumbar spine 2-3V 05/09/2025 19:30 Indication: Low back pain Procedure: 3 views lumbar spine Comparison: No prior studies for comparison. Findings: There is disc narrowing at all lumbar levels. There is facet hypertrophy at L4-5 and L5-S1. No acute fracture, subluxation or dislocation. Pedicles intact. There are cholecystectomy clips. Sacral foramen are symmetric. Impression: 1: Mild-moderate lumbar spondylosis. Reviewed, dictated and finalized at location O. Impression: 1: Mild-moderate lumbar spondylosis.
[2025-05-09 19:05] VITALS: BP 149/77; PULSE 77; RESP 20; TEMP 36.9; O2SAT 99
--- NOTE | 2025-05-09 19:19 | ED.BACK ---
HPI - Back Pain/Injury General Chief Complaint: Back Pain/Injury Stated Complaint: back pain Time Seen by Provider: 05/09/25 19:10 Source: patient Mode of arrival: ambulatory Limitations: no limitations History of Present Illness HPI Narrative: This is a 44 year old male that presents to the ER for low back pain. Ongoing since this morning. No known injury. Worse with movement, relieved with rest. Denies saddle anesthesia, bowel/bladder incontinence. Related Data Home Medications ?Medication ?Instructions ?Recorded ?Confirmed ?Last Taken ?Type lisinopril 10 1 tablet DAILY 02/04/22 07/09/23 Unknown History mg-hydrochlorothiazide 12.5 mg tablet apremilast 30 mg tablet (Otezla) mg PO 10/25/24 Unknown History Allergies Allergy/AdvReac Type Severity Reaction Status Date / Time No Known Allergies Allergy Verified 05/09/25 19:13 Review of Systems Review of Systems: All systems reviewed & are unremarkable except as noted in HPI and below PMFSH Past Medical History Medical History Psoriasis Morbid obesity with BMI of 40.0-44.9, adult Hypertension Arthritis Surgical History Surgical History History of cervical spinal surgery History of orthopedic surgery Right foot and ankle surgery Family History Family History Father Cholelithiasis Social History Social History Social History: Surrogate decision maker: Popeye Spencer, father. Code status: Full code. Smoking status: Former smoker Alcohol intake: never Substance use: never Spiritual care concerns: No Exam Narrative: GENERAL: Well-appearing, well-nourished, and in no acute distress. HEAD: Normocephalic, atraumatic. EYES: EOMI. CHEST: Clear to auscultation. No respiratory distress. No wheezes rales or rhonchi HEART: Regular rate and rhythm. No murmur heard. Normal peripheral pulses. EXTREMITIES: Normal range of motion. No edema. Strength equal in bilateral lower extremities (5/5) SKIN: Warm, dry, no rash. NEURO: No focal deficits. Alert and oriented x3. PSYCH: Normal mood and affect Course Course Emergency Course: Patient updated on his workup and agrees with plan of care Vital Signs Vital signs: Vital Signs Temperature 98.4 F 05/09/25 19:05 Pulse Rate 77 05/09/25 19:05 Respiratory Rate 20 05/09/25 19:05 Blood Pressure 149/77 H 05/09/25 19:05 Pulse Oximetry 99 05/09/25 19:05 Oxygen Delivery Room Air 05/09/25 19:05 Temperature 98.4 F 05/09/25 19:05 Pulse Rate 77 05/09/25 19:05 Respiratory Rate 20 05/09/25 19:05 Blood Pressure 149/77 H 05/09/25 19:05 Pulse Oximetry 99 05/09/25 19:05 Oxygen Delivery Room Air 05/09/25 19:05 MDM - Back Pain/Injury MDM Narrative Medical decision making narrative: Patient presents the emergency department for low back pain. Ongoing since this morning. He is afebrile and nontoxic appearing. He is neurologically intact. Denies any saddle anesthesia, bowel/bladder. Lumbar spine x-ray shows mild to moderate lumbar spondylosis. Patient updated on his workup and agrees with plan of care. He is to follow up with primary provider. He was given warnings to return to the ER Differential Diagnosis Differential diagnosis: Likely lumbar radiculopathy, sciatica and strain of lumbar region Imaging Data Radiologist's impression: ITS Impressions Lumbar Spine X-Ray 05/09/25 19:40 Impression: 1: Mild-moderate lumbar spondylosis. Critical Care Time Critical Care Time Critical Care Time: No Discharge Plan Discharge Clinical Impression: Low back pain Qualifiers: Chronicity: acute Back pain laterality: midline Sciatica presence: with sciatica Sciatica laterality: bilateral sciatica Qualified Code(s): M54.42 - Lumbago with sciatica, left side Patient Disposition: Home Condition: Stable Instructions: Lumbar Radiculopathy (ED) Additional Instructions: Return to the ER if you experience weakness, numbness, bowel/bladder incontinence, or any other symptoms that are concerning to you Rest, use ice/heat, take anti-inflammatories (Aleve, Ibuprofen, Naproxen, etc) or Tylenol as needed for pain as well as muscle relaxer (Flexeril) as needed for pain. Muscle relaxers can make you drowsy, do not drive if you take this. Muscle relaxer as needed for pain. Lidocaine patch to the area of pain as needed Follow up with your primary care doctor Patient Language: Lithuanian Prescriptions: New cyclobenzaprine 10 mg tablet 10 mg PO TID PRN (Reason: muscle spasm) Qty: 14 0RF lidocaine 5 % adhesive patch,medicated 1 patch topical DAILY Qty: 15 0RF Rx Instructions: leave on most painful area for up to 12 hrs No Action lisinopril-hydrochlorothiazide 10-12.5 mg tablet 1 tablet DAILY Otezla 30 mg tablet PO cephalexin 500 mg capsule 500 mg PO Q6H 7 Days Qty: 28 0RF albuterol sulfate 90 mcg/actuation HFA aerosol inhaler 2 puff inhalation QID PRN (Reason: shortness of breath or wheezing) Qty: 8.5 0RF Follow-up/Referrals: John,Eric Mckeon MD [Primary Care Provider]
--- OUTSIDE RECORDS SUMMARY | 2025-05-09 19:34 | XMS_ITS | Encounter Summary ---
Author Organization [facility] Address [address] [place] [address] Care Team Providers Care Plant Operator/Shift Supervisor Name Role Phone Eric Lopez MD Primary Care Provider [phone] Encounter Details Date Type Department Care Team (Late st Contact Info) Description 06/01/2024 DreamFundedt Message Enc [facility] Medical Group Family & Internal Medicine [facility] [address] [place] [phone] [place] Lopez [place] [id number] [place] [address] Lower back Social History Tobacco Use [...] Total Score: 1 10/25/19 22 11:13 AM OVEN OPERATOR AUTOMATIC documented as of this encounter Care Teams Plant Operator/Shift Supervisor Relationship Specialty [place] [address] [place] [address] PCP - General FAMILY PRACTICE 07/07/18 documented as of this encounter
--- OUTSIDE RECORDS SUMMARY | 2025-05-09 19:34 | XMS_ITS | Encounter Summary ---
Author Organization [facility] Address [address] [place] [address] Care Team Providers Care Email Marketing Coordinator Name Role Phone Eric Lopez MD Primary Care Provider [phone] Encounter Details Date Type Department Care Team (Late st Contact Info) Description 06/08/2024 The IQ Collectivet Message Enc [facility] Medical Group Family & Internal Medicine [facility] [address] [place] [phone] E[place] Lopez [place] [id number] [place] [address] Abdominal pain Social History Tobacco Use [...] Total Score: 1 02/24/20 22 11:13 AM PARKING LOT SPOTTER documented as of this encounter Care Teams Email Marketing Coordinator Relationship Specialty [place] [address] [place] [address] PCP - General FAMILY PRACTICE 07/07/18 documented as of this encounter
--- OUTSIDE RECORDS SUMMARY | 2025-05-09 19:34 | XMS_ITS | Encounter Summary ---
Author Organization [facility] Address [address] [place] [address] Care Team Providers Care Medical Office Professional Instructor Name Role Phone Eric Lopez MD Primary Care Provider [phone] Encounter Details Date Type Department Care Team (Latest Contact Info) Description 04/23/2025 Results Follow-Up [facility] Medical Group Family & Internal Medicine [facility] [address] [place] [address] [place] [address] [place], [place] [id number] COMPREHENSIVE METABOLIC PANEL Social History Tobacco Use Types Packs/Day Years [...] Progress Notes * Sandrine Retana RN - 04/25/2025 1:34 PM CDT Last read by Popeye Spencer at 12:17PM on 04/25/2025. * Eric Lopez MD - 04/23/2025 10:56 AM CDT Other than elevated glucose labs are good documented in this encounter Plan of Treatment Not on file documented as of this encounter Visit Diagnoses Not on filedocumented in this encounter Additional Health Concerns Assessment Noted Time PHQ-9 Depression Total Score: 1 10/25/19 22 11:13 AM SPORTS PHYSICAL THERAPIST documented as of this encounter Care Teams Medical Office Professional Instructor Relationship Specialty [place] [address] [place] [address] PCP - General FAMILY PRACTICE 07/07/18 documented as of this encounter
--- OUTSIDE RECORDS SUMMARY | 2025-05-09 19:34 | XMS_ITS | Encounter Summary ---
Author Organization [facility] Address [address] [place] [address] Care Team Providers Care Lathe Operator Name Role Phone Eric Lopez MD Primary Care Provider [phone] Encounter Details Date Type Department Care Team (Late st Contact Info) Description 05/13/2024 uliket Message Enc [facility] Medical Group Family & Internal Medicine [facility] [address] [place] [phone] [place] Lopez [place] [id number] [place] [address] A1C Social History Tobacco Use Types [...] Total Score: 1 10/25/19 22 11:13 AM HIM ANALYST documented as of this encounter Care Teams Lathe Operator Relationship Specialty [place] [address] [place] [address] PCP - General FAMILY PRACTICE 07/07/18 documented as of this encounter
--- OUTSIDE RECORDS SUMMARY | 2025-05-09 19:34 | XMS_ITS | Encounter Summary ---
Author Organization [facility] Address [address] [place] [address] Care Team Providers Care Regulatory Attorney Name Role Phone Eric Lopez MD Primary Care Provider [phone] Encounter Details Date Type Department Care Team (Late st Contact Info) Description 01/21/2024 Panceterat Message Enc [facility] Medical Group Family & Internal Medicine [facility] [address] [place] [phone] [place] Lopez [place] [id number] [place] [address] Ozempic and otezla Social History Tobacco [...] 12:06 PM CDT Spoke with Madison at [facility] at [phone]. She states to escribe rx to [facility] in [place], [place]. Rx sent. documented in this encounter Plan of Treatment Not on file documented as of this encounter Visit Diagnoses Not on filedocumented in this encounter Additional Health Concerns Assessment Noted Time PHQ-9 Depression Total Score: 1 10/25/19 22 11:13 AM CAN TENDER documented as of this encounter Care Teams Regulatory Attorney Relationship Specialty [place] [address] [place] [address] PCP - General FAMILY PRACTICE 07/07/18 documented as of this encounter
--- OUTSIDE RECORDS SUMMARY | 2025-05-09 19:34 | XMS_ITS | Encounter Summary ---
Author Organization [facility] Address [address] [place] [address] Care Team Providers Care Computer Operations Supervisor Name Role Phone Eric Lopez MD Primary Care Provider [phone] Encounter Details Date Type Department Care Team (Late st Contact Info) Description 01/30/2025 Soundropt Message Enc [facility] Medical Group Family & Internal Medicine [facility] [address] [place] [phone] Eric Lopez MD [address] [place] [address] Blood work Social History Tobacco Use [...] Total Score: 1 02/24/20 22 11:13 AM NURSE'S AIDES TEACHER documented as of this encounter Care Teams Computer Operations Supervisor Relationship Specialty [place] [address] [place] [address] PCP - General FAMILY PRACTICE 07/07/18 documented as of this encounter
--- OUTSIDE RECORDS SUMMARY | 2025-05-09 19:34 | XMS_ITS | Encounter Summary ---
Author Organization [facility] Address [address] [place] [address] Care Team Providers Care Basket Filler Name Role Phone Eric Lopez MD Primary Care Provider [phone] Encounter Details Date Type Department Care Team (Late st Contact Info) Description 03/16/2025 Kromekt Message Enc [facility] Medical Group Family & Internal Medicine [facility] [address] [place] [phone] [place] [id number] [place] [address] TB test Social History Tobacco Use Types Packs/Day Years [...] Progress Notes * Sandrine Retana RN - 03/16/2025 11:21 AM CDT Called [facility] and had to leave detailed message for someone to call our office in regards to what medication they are wanting to put pt on. Per Dr Lopez, will not prescribe biologic. If derm will not prescribe this, pt will need to see rheumatology to manage this. documented in this encounter Plan of Treatment Not on file documented as of this encounter Visit Diagnoses Not on filedocumented in this encounter Additional Health Concerns Assessment Noted Time PHQ-9 Depression Total Score: 1 10/25/19 22 11:13 AM CUSTODIAN documented as of this encounter Care Teams Basket Filler Relationship Specialty [place] [address] [place] [address] PCP - General FAMILY PRACTICE 07/07/18 documented as of this encounter
--- OUTSIDE RECORDS SUMMARY | 2025-05-09 19:34 | XMS_ITS | Encounter Summary ---
Author Organization [facility] Address [address] [place] [address] Care Team Providers Care Metal Leaf Layer Name Role Phone Eric Lopez MD Primary Care Provider [phone] Encounter Details Date Type Department Care Team (Late st Contact Info) Description 12/10/2023 Intoo Message [facility] Patient Accounts [address] [place] [address] [facility] Provider Action Required Social History [...] Total Score: 1 10/25/19 22 11:13 AM FAST FOOD SALES ASSISTANT documented as of this encounter Care Teams Metal Leaf Layer Relationship Specialty [place] [address] [address] [place] [address] PCP - General FAMILY PRACTICE 07/07/18 documented as of this encounter
--- OUTSIDE RECORDS SUMMARY | 2025-05-09 19:34 | XMS_ITS | Clinical Summary ---
Author Organization [facility] Address [address] [place] [address] Care Team Providers Care Tunnel Kiln Repairer Name Role Phone Eric Lopez MD Primary Care Provider [phone] Allergies No known active allergies Medications metFORMIN (GLUCOPHAGE) 1000 MG tabletIndications: Type 2 diabetes mellitus with stage 2 chronic kidney disease, without long-term current use of insulin ([facility]) TAKE 1 TABLET(1000 MG) BY MOUTH TWICE DAILY WITH MEALS 180 tablet 1 02/04/20 24 Active diazePAM (VALIUM) 5 MG tabletIndications: Benign paroxysmal positional vertigo due to bilateral vestibular disorder Take 1-2 tabs every 6 hours as needed for vertigo 30 tablet 04/29/20 24 Active semaglutide (OZEMPIC, 0.25 OR 0.5 MG/DOSE,) 2 [...] BY MOUTH DAILY 90 tablet 1 10/11/19 25 Active albuterol sulfate HFA 108 (90 Base) MCG/ACT inhaler INHALE 2 PUFFS BY MOUTH FOUR TIMES DAILY NEEDED FOR SHORTNESS OF BREATH OR WHEEZING 10/26/19 25 Active meloxicam (MOBIC) 7.5 MG tabletIndications: Lumbar radicular pain Take 1 tablet (7.5 mg total) by mouth daily. 30 tablet 04/05/20 25 Active rifAMPin (RIFADIN) 300 MG capsuleIndications :TB lung, latent Take 2 capsules by mouth daily for 3 months. 180 capsule 04/21/20 25 Active isoniazid (INH) 300 MG tabletIndications: TB lung, latent Take 1 tablet (300 mg total) by mouth daily. For 3 months 90 tablet 04/21/20 25 Active Pyridoxine HCl (VITAMIN B6) 50 MG TabIndications:Enc ounter for long-term (current) use of medications Take 1 tablet by mouth daily. For 3 months 90 tablet 04/21/20 25 Active Apremilast (OTEZLA) 30 MG TabIndications:Pso riasis, unspecified TAKE 1 TABLET TWICE A DAY 60 tablet 3 02/09/20 25 025 Discontin ued(Drug Interacti on) Hospital, Clinic, or Other Facility Administered Medication Ordered Dose Route Frequency Start Date End Date Status fluorescein (FLUORETS) ophthalmic strip 1 stripIndications:Abrasion of left eye, initial encounter 1 strip Left Eye Once 12/15/2023 Active Active Problems Problem Noted Date Diagnosed Date Type 2 diabetes mellitus wit hout complication, with long-term current use of insulin ([facility]) 04/06/2025 SLAP lesion of right shoulder 03/31/2023 Assessment & Plan (03/31/2023 5:52 PM CDT): Recommendation at this time is to try to get him set up for referral to Dr. Travis or Dr. Lisa alanis in [place]. History of neck surgery 11/28/2022 Impingement syndrome of right shoulder 3 Assessment & Plan (02/24/2023 1:50 PM CDT): [...] 10/15/2022 Assessment & Plan (10/18/2022 11:51 AM SENIOR PARTNER): Continue with physical therapy next week. He [...] Encounters Date Type Department Care Team Description 04/23/2025 Results Follow-Up [facility] Family & Internal Medicine [facility] [id number] [place] [phone] Eric Lopez MD COMPREHENSIVE METABOLIC PANEL 04/22/2025 8:25 AM CDT - 04/22/2025 11:59 PM CDT Hospital Encounter [facility] [address] [place], [place] [id number] Eric Lopez MD Discharge Disposition: Home or Self Care (Routine Discharge) 04/22/2025 Travel 04/18/2025 MyChart Message Enc [facility] Medical [facility] Family & Internal Medicine [facility] [address] [place] [phone] Eric Lopez MD Medication 04/05/2025 7:40 AM CDT Office Visit [facility] Family & Internal [facility] [address] [place] [phone] Eric Lopez MD Follow Up; Abnormal Lab Results 04/05/2025 Travel 03/20/2025 Scan [facility] Scanned, [facility] 03/17/2025 Scan [facility] Scanned, [facility] 03/16/2025 10:26 AM CDT - 03/16/2025 11:59 PM CDT Hospital Encounter [facility] [address] [place] [address] Blair Mott, [place] Discharge Disposition: Home or Self Care (Routine Discharge) 03/16/2025 Travel 03/16/2025 MyChart Message Enc [facility] Internal [facility] [address] [place] [phone] Eric Lopez MD TB test 03/15/2025 Scan HEALTH INFO [facility] Scanned, [facility] 02/09/2025 8:20 AM CDT - 02/09/2025 11:59 PM CDT Hospital Encounter [facility] [address] [place] [address] Blair Mott, [place] Discharge Disposition: Home or Self Care (Routine Discharge) 02/09/2025 Scan HEALTH INFO [facility]CS Scanned, [facility] Lab (SCAN) 02/09/2025 Orders Only [facility] [address] [place] [address] Non-Staff, Provider 02/09/2025 Travel from Last 3 Months Immunizations Immunization Administration Dates Next Due Fluzone Adult - [...] Past Smokeless Tobacco: Never Tobacco Cessation:Counseling Given: No Comments:na Alcohol Use Standard Drinks/Week Comments Yes [...] Sign Reading Time Taken Comments Blood Pressure 138/82 04/05/2025 7:35 AM CDT Pulse 55 04/05/2025 7:35 AM CDT Temperature 36.1 C (97 F) 04/05/2025 7:35 AM CDT Respiratory Rate 16 04/05/2025 7:35 AM CDT Oxygen Saturation 98% 04/05/2025 7:35 AM CDT Inhaled Oxygen Concentration - - Weight 106.6 kg (235 lb) 04/05/2025 7:35 AM CDT Height 182.9 cm (6') 04/05/2025 7:35 AM CDT Body Mass Index 31.87 04/05/2025 7:35 AM CDT Plan of Treatment Health Maintenance Due Date Last Done Comments Kidney Health Evaluation 1981 Annual Physical 1984 Diabetes: Retinopathy Eye Exam 1999 Hepatitis C 1999 DTaP, Tdap and Td Vaccines ( 1 - Tdap) 2000 Hepatitis B Vaccines (1 of 3 - 19+ 3-dose series) 2000 Pneumococcal Vaccine: Pediatrics (0 to 5 Years) and At-Risk Patients (6 to 49 Years) (1 of 2 - PCV) 2000 HPV Vaccines (1 - 3-dose SCD M series) 2008 PHQ-2 (Physician [place]) 09/01/2024 12/15/2023 Hemoglobin A1C 11/17/2024 05/20/2024, 11/11/2023, 09/12/2023 COVID-19 Vaccine (3 - 2024-2 6 season) 2025 01/18/2022, 12/18/2021 Lipid Panel 02/09/2026 02/09/2025, 09/15/2023, 05/26/2020 Meningococcal B Vaccine Aged Out No l onger eligible based on patient's age to complete this topic Meningococcal Vaccine Aged Out No he kellee eligible based on patient's age to complete this topic RSV Immunizations Under 20 Months Aged Out No longer eligible b ased on patient's age to complete this topic Procedures Procedure Name Priority Date/Time Associated Diagnosis Comments COMPREHENSIVE METABOLIC PANEL Routine 04/22/2025 8:32 AM CDT Medication management XR CHEST PA+LAT Routine 03/16/2025 10:40 AM CDT Other specified abnormal findings of blood chemistry TBGOLD-TUBERCULOSIS TST CELL MEDIATED IMMUNITY Routine 02/09/2025 8:35 AM CDT Psoriasis vulgaris LIPID PANEL Routine 02/09/2025 8:35 AM CDT Psoriasis vulgaris AST/SGOT Routine 02/09/2025 8:35 AM CDT Psoriasis vulgaris ALT/SGPT Routine 02/09/2025 8:35 AM CDT Psoriasis vulgaris OUTSIDE LAB (SCAN ORDER) 02/09/2025 HEMOGLOBIN, GLYCOSYLATED Routine 05/20/2024 Type 2 diabetes mellitus without complication, without long-term current use of insulin from Last 3 Months or Most Recently Relevant to Health Maintenance Results * (ABNORMAL) COMPREHENSIVE METABOLIC PANEL (04/22/2025 8:32 AM CDT) GLUCOSE 112(H) 70 - 99 MG/DL 04/22/2025 9:13 AM [facility] BUN 17 7 - 18 MG/DL 04/22/2025 9:13 AM [facility] CREATININE S/P/B 0.76 0.7 - 1.3 MG/DL 04/22/2025 9:13 AM [facility] SODIUM S/P/B 140 136 - 145 MMOL/L 04/22/2025 9:13 AM [facility] POTASSIUM S/P/B 4.4 3.5 - 5.1 MMOL/L 04/22/2025 9:13 AM [facility] CHLORIDE S/P/B 107 100 - 108 MMOL/L 04/22/2025 9:13 AM [facility] CO2 30.2 21 - 32 MMOL/L 04/22/2025 9:13 AM [facility] CALCIUM S/P/B 8.7 8.5 - 10.1 MG/DL 04/22/2025 9:13 AM [facility] BILIRUBIN TOTAL S/P/B 0.8 0.2 - 1.2 MG/DL 04/22/2025 9:13 AM [facility] TOTAL PROTEIN S/P/B 7.3 6.4 - 8.2 G/DL 04/22/2025 9:13 AM [facility] ALBUMIN S/P/B 3.8 3.4 - 5.0 G/DL 04/22/2025 9:13 AM [facility] AST 25 15 - 37 U/L 04/22/2025 9:13 AM [facility] ALT 45 16 - 60 U/L 04/22/2025 9:13 AM [facility] ALKALINE PHOSPHATASE S/P/B 77 50 - 136 U/L 04/22/2025 9:13 AM CDT [facility] ANION GAP 2.8(L) 5 - 15 MMOL/L 04/22/2025 9:13 AM CDT [facility] BUN CREATININE RATIO 22.4 6 - 26 04/22/2025 9:13 AM CDT [facility] A/G RATIO 1.1 1.0 - 2.0 RATIO 04/22/2025 9:13 AM CDT [facility] GFR ESTIMATE >90 >90 ML/MIN/1.7 3 M2 04/22/2025 9:13 AM CDT [facility] Comment: NOTE: eGFR is not calculated for patients <18 years of age. This is an estimated GFR calculation using the new CKD EPI creatinine equation without race and so does not require a correction factor for race. This estimated GFR should not be used for calculating drug doses. 04/22/2025 8:32 AM CDT us Eric Lopez MD LABORATORY Final Resul t [facility] [address] [place] [address], * XR CHEST PA+LAT (03/16/2025 10:40 AM CDT) Anatomical Region Laterality Modality Chest Radiographic Jil ging 03/16/2025 10:4 4 AM CDT Impressions 03/16/2025 11:46 AM CDT IMPRESSION: No acute findings. The attending radiologist has reviewed the image(s) and agrees with the content of this report. Ordered By: BLAIR MOTT Interpreted By: Bo Leroy MD, 03/16/2025 10:44 AM Narrative 03/16/2025 11:[address] [facility] [address] [place] [address] Examination: Chest x-ray 2 view Exam time: 03/16/2025 10:35 AM Clinical history: Positive QuantiFERON gold TB test Comparison: Portable chest x-ray 07/09/2023 Technique: PA and lateral views were obtained. Findings: There is cervical spinal fusion hardware. Heart size is normal. No pulmonary vascular congestion. There are no pleural effusions. There is no pneumothorax. No acute osseous abnormality is identified. Procedure Note Alex Robbins MD - 03/16/2025 [facility] [address] [place] [address] Examination: Chest x-ray 2 view Exam time: 03/16/2025 10:35 AM Clinical history: Positive QuantiFERON gold TB test Comparison: Portable chest x-ray 07/09/2023 Technique: PA and lateral views were obtained. Findings: There is cervical spinal fusion hardware. Heart size is normal. Nopulmonary vascular congestion. There are no pleural effusions. There is nopneumothorax. No acute osseous abnormality is identified. IMPRESSION: No acute findings. The attending radiologist has reviewed the image(s) and agrees with thecontent of this report. Ordered By: BLAIR MOTT Interpreted By: Bo Leroy MD, 03/16/2025 10:44 AM Blair Mott DC GENERAL IMAGING Final Result * (ABNORMAL) TBGOLD-TUBERCULOSIS TST CELL MEDIATED IMMUNITY (02/09/2025 8:35 AM CDT) TB1 AG MINUS NIL 0.59 IU/ML 02/11/20 3:48 PM CDT [facility] TB2 AG MINUS NIL 0.59 IU/ML 02/11/20 3:48 PM CDT [facility] TB QUANTIFERON POSITIVE(A) NEGATIVE 3:48 PM CDT [facility] TB INTERPRETATION M. tuberculosis infection likely. 02/10/2025 3:48 PM CDT [facility] Comment: Some data suggests that a low positive QuantiFERON value in a clinical setting where the risk of TB exposure is low or non-existent indicates the likelihood of latent tuberculosis to be extremely low. In this case, treatment may not be indicated, but the decision to treat is at the discretion of the ordering provider. Positive results in patients at low-risk for tuberculosis should be interpreted with caution and repeat testing on a new sample should be consider. 02/09/2025 8:35 AM CDT us Provider Non-Staff LABORATORY Final Result [facility] [address] [place] [address], [place] [phone] [id number] * (ABNORMAL) AST/SGOT (02/09/2025 8:35 AM CDT) AST 13(L) 15 - 37 U/L 02/09/2025 9:06 AM CDT [facility] 02/09/2025 8:35 AM CDT us Provider Non-Staff LABORATORY Final Result [facility] [address] [place] [address], [place] [phone] * (ABNORMAL) LIPID PANEL (02/09/2025 8:35 AM CDT) CHOLESTEROL 166 <200.0 MG/DL 02/09/2025 9:06 AM CDT [facility] TRIGLYCERIDES 64 <150 MG/DL 02/09/2025 9:06 AM CDT [facility] HDL 50 >40.0 MG/DL 02/09/2025 9:06 AM CDT [facility] LDL (CALCULATED) 103(H) <100 MG/DL 02/09/2025 9:06 AM CDT [facility] Comment:CALCULATED USING THE FRIEDEWALD EQUATION NON HDL CHOLESTEROL 116 <130 MG/DL 02/09/2025 9:06 AM CDT [facility] CHOL/HDL RATIO 3.3 0.0 - 4.5 02/09/2025 9:06 AM CDT [facility] VLDL CALCULATION 13 5 - 55 MG/DL 02/09/2025 9:06 AM CDT [facility] LIPID INTERPRETATION 02/09/2025 9:06 AM CDT [facility] Comment: NIH CONCENSUS REPORT RECOMMENDATIONS: ADULT CHILD LOW RISK: CHOLESTEROL <200 <170 TRIGLYCERIDE <150 --- HDL >=60 --- LDL <100 <110 BORDERLINE: CHOLESTEROL 200-239 170-199 TRIGLYCERIDE 150-199 --- HDL 40-59 --- LDL 100-159 110-129 HIGH RISK: CHOLESTEROL >=240 >=200 TRIGLYCERIDE >=200 --- HDL <40 --- LDL >=160 >=130 02/09/2025 8:35 AM CDT us Provider Non-Staff LABORATORY Final Result Performing Organization Address City/[facility]/ZIP Co de Phone Number [facility] [address] [place] [address], [place] [phone] * ALT/SGPT (02/09/2025 8:35 AM CDT) ALT 30 16 - 60 U/L 02/09/2025 9:06 AM CDT [facility] 02/09/2025 8:35 AM CDT us Provider Non-Staff LABORATORY Final Result Performing Organization Address [facility]/ZIP Co de Phone Number [facility] [address] [place] [address], [place] [phone] * OUTSIDE LAB (SCAN ORDER) (02/09/2025) 02/09/2025 us [facility] Scanned SCANNING Final Resu lt * HEMOGLOBIN, GLYCOSYLATED (05/20/2024) HGB A1C 4.6 % [id number] T BHUPINDER BRAUN 05/20/2024 Eric Lopez MD LABORATORY Final Resul t [id number] [address] [place] [address] [place] [address], from Last 3 Months or Most Recently Relevant to Health Maintenance Insurance [facility] [employer] [address] Care Teams Tunnel Kiln Repairer Relationship Specialty [place] [address] [place] [address] PCP - General FAMILY PRACTICE 07/07/18
--- OUTSIDE RECORDS SUMMARY | 2025-05-09 19:34 | XMS_ITS | Encounter Summary ---
Author Organization [facility] Address [address] [place] [address] Care Team Providers Care Wraparound Facilitator Name Role Phone Eric Lopez MD Primary Care Provider [phone] Encounter Details Date Type Department Care Team (Late st Contact Info) Description 10/28/2023 FreshTt Message Enc [facility] Medical Group Family & Internal Medicine [facility] [phone] [place] [phone] Eric Lopez MD [address] [place] [address] Lab work Social History Tobacco Use [...] Total Score: 1 10/25/19 22 11:13 AM WELDER FITTER HELPER documented as of this encounter Care Teams Wraparound Facilitator Relationship Specialty [place] [address] [place] [address] PCP - General FAMILY PRACTICE 07/07/18 documented as of this encounter
--- OUTSIDE RECORDS SUMMARY | 2025-05-09 19:34 | XMS_ITS | Encounter Summary ---
Author Organization [facility] Address [address] [place] [address] Care Team Providers Care Tester Regulator Name Role Phone Eric Lopez MD Primary Care Provider [phone] Encounter Details Date Type Department Care Team (Late st Contact Info) Description 09/15/2023 Fave Mediat Message Enc [facility] Medical Group Family & Internal Medicine [facility] [phone] [place] [phone] Eric Lopez MD [address] [place] [address] Blood work Social History Tobacco Use [...] a savings card if we prescribe basaglar OMER EXPERIENCE CONSULTANT * Sandrine Retana RN - 09/17/2023 6:25 PM CST A1C was 12.3. Ozempic is too expensive. He is on Metformin. What would you recommend for him? Thankyou! OMER EXPERIENCE CONSULTANT documented in this encounter Plan of Treatment Not on file documented as of this encounter Visit Diagnoses Not on filedocumented in this encounter Additional Health Concerns Assessment Noted Time PHQ-9 Depression Total Score: 1 10/25/19 22 11:13 AM CUSTOMER EXPERIENCE CONSULTANT documented as of this encounter Care Teams Tester Regulator Relationship Specialty [place] [address] [place] [address] PCP - General FAMILY PRACTICE 07/07/18 documented as of this encounter
--- OUTSIDE RECORDS SUMMARY | 2025-05-09 19:34 | XMS_ITS | Encounter Summary ---
Author Organization [facility] Address [address] [place] [address] Care Team Providers Care Lasting Floorworker Name Role Phone Eric Lopez MD Primary Care Provider [phone] Encounter Details Date Type Department Care Team (Late st Contact Info) Description 11/17/[address] [facility] Medical Group Family & Internal Medicine [facility] [phone] [place] [phone] [place] Lopez [place] [id number] [place] [address] Appointment Social History Tobacco Use Types [...] Total Score: 1 10/25/19 22 11:13 AM PROJECT FACILITATOR documented as of this encounter Care Teams Lasting Floorworker Relationship Specialty [place] [address] [place] [address] PCP - General FAMILY PRACTICE 07/07/18 documented as of this encounter
--- OUTSIDE RECORDS SUMMARY | 2025-05-09 19:34 | XMS_ITS | Encounter Summary ---
Author Organization [facility] Address [address] [place] [address] Care Team Providers Care Financial Services Associate Name Role Phone Eric Lopez MD Primary Care Provider [phone] Encounter Details Date Type Department Care Team (Late st Contact Info) Description 11/10/2023 Circle Biologicst Message Enc [facility] Medical Group Family & Internal Medicine [facility] [phone] [place] [phone] [place] Lopez [place] [id number] [place] [address] Metformin Social History Tobacco Use Types [...] 1 10/25/19 22 11:13 AM DIRECTOR OF INFECTION PREVENTION documented as of this encounter Care Teams Financial Services Associate Relationship Specialty [place] [address] [place] [address] PCP - General FAMILY PRACTICE 07/07/18 documented as of this encounter
--- OUTSIDE RECORDS SUMMARY | 2025-05-09 19:34 | XMS_ITS | Encounter Summary ---
Author Organization [facility] Address [address] [place] [address] Care Team Providers Care Health Information Specialist Name Role Phone Eric Lopez MD Primary Care Provider [phone] Encounter Details Date Type Department Care Team (Late st Contact Info) Description 01/05/2025 Kojamit Message Enc [facility] Medical Group Family & Internal Medicine [facility] [id number] [place] [phone] [place] [id number] [place] [address] Composition Weatherboard Installer Social History Tobacco Use Types Packs/Day Years [...] Total Score: 1 02/24/20 22 11:13 AM PROTECTIVE SERVICE SPECIALIST documented as of this encounter Care Teams Health Information Specialist Relationship Specialty [place] [address] [place] [address] PCP - General FAMILY PRACTICE 07/07/18 documented as of this encounter
--- OUTSIDE RECORDS SUMMARY | 2025-05-09 19:34 | XMS_ITS | Encounter Summary ---
Author Organization [facility] Address [address] [place] [address] Care Team Providers Care Vice President Global Digital Marketing Name Role Phone Eric Lopez MD Primary Care Provider [phone] Encounter Details Date Type Department Care Team (Late st Contact Info) Description 06/25/2024 Radt Message Enc [facility] Medical Group Family & Internal [facility] [phone] [place] [phone] [place] Lopez [place] [id number] [place] [address] Sciatic nerve Social History Tobacco Use [...] Total Score: 1 10/25/19 22 11:13 AM PROTOHISTORIAN documented as of this encounter Care Teams Vice President Global Digital Marketing Relationship Specialty [place] [address] [place] [address] PCP - General FAMILY PRACTICE 07/07/18 documented as of this encounter
[2025-05-09] MEDS: ACETAMINOPHEN 500 MG TABLET 1000 MG PO (19:53)
[2025-05-09] MEDS: LIDOCAINE 5% PATCH 1 PATCH TRANSDERM (19:54)
[2025-05-09] MEDS: KETOROLAC 30 MG/ML VIAL (*BKC) IM (19:54)
== END 2025-05-09 21:26 | disposition home or self-care (01) ==
PROVIDERS: Emergency Provider Physician Assistant; PCP Family Medicine
DX: M54.42 Lumbago with sciatica, left side (principal); M54.41 Lumbago with sciatica, right side; I10 Essential (primary) hypertension; E66.01 Morbid (severe) obesity due to excess calories; Z68.37 Body mass index [BMI] 37.0-37.9, adult; L40.9 Psoriasis, unspecified; M19.90 Unspecified osteoarthritis, unspecified site; Z87.891 Personal history of nicotine dependence; M47.816 Spondylosis without myelopathy or radiculopathy, lumbar region
CPT/HCPCS: 72100; 96372; 99283; A9270; J1885

== ENCOUNTER 2025-08-10 11:52 | Emergency (ER) | payer SELFPAY ==
--- NOTE | 2025-08-10 12:09 | ED.URI ---
HPI - URI/Sore Throat General Chief Complaint: Upper Respiratory Infection Stated Complaint: URI/sore throat Time Seen by Provider: 08/10/25 12:16 Source: patient and RN notes reviewed Mode of arrival: ambulatory Limitations: no limitations History of Present Illness HPI Narrative: 44-year-old male presents with concern of for chills, sweats, sore throat, dry throat, body aches. He reports symptoms started today. He has not taken any medicine for his symptoms. He denies known sick contacts MD elicited complaint: sore throat Related Data Home Medications ?Medication ?Instructions ?Recorded ?Confirmed ?Last Taken ?Type lisinopril 10 1 tablet DAILY 02/04/22 07/09/23 Unknown History mg-hydrochlorothiazide 12.5 mg tablet Allergies Allergy/AdvReac Type Severity Reaction Status Date / Time No Known Allergies Allergy Verified 08/10/25 12:12 Review of Systems Review of Systems: CONSTITUTIONAL: Reports malaise, chills, sweats. Denies fever. EYES: Denies visual changes, redness, or discharge. ENT: Denies rhinorrhea, congestion, sinus pain, otalgia. Reports sore throat. CARDIOVASCULAR: Denies chest pain, palpitations, or edema. RESPIRATORY: Reports cough. Denies dyspnea. GASTROINTESTINAL: Denies abdominal pain, nausea, vomiting, diarrhea SKIN: Denies rash or itching. MUSCULOSKELETAL: Reports myalgia. NEUROLOGIC: Reports headache. All systems reviewed & are unremarkable except as noted in HPI and below PMFSH Past Medical History Medical History Psoriasis Morbid obesity with BMI of 40.0-44.9, adult Hypertension Arthritis Surgical History Surgical History History of cervical spinal surgery History of orthopedic surgery Right foot and ankle surgery Family History Family History Father Cholelithiasis Social History Social History (Reviewed 03/20/25 @ 16:02 by Mirna Renteria, ARCHITECTURAL ENGINEERING TEACHER, BASS MECHANISM MAKER) Social History: Surrogate decision maker: Popeye Spencer, father. Code status: Full code. Smoking status: Former smoker Alcohol intake: never Substance use: never Spiritual care concerns: No Comments At time of signature, agree with nursing past medical, surgical, social and family history. There is no relevant family history pertinent to the presenting complaint Exam Narrative: GENERAL: Nontoxic-appearing, well-nourished, and in no acute distress. HEAD: Normocephalic EYES: PERRLA, conjunctivae clear ENT: Nares clear. Mucous membranes moist. TM pearly boone with dull light reflex bilaterally; no tragal tenderness. Oropharynx erythematous without lesions. Tonsils not enlarged and without exudate, no drooling, no hoarseness, no trismus, uvula midline. NECK: Supple. No lymphadenopathy CHEST: Clear to auscultation, breath sounds equal. No wheezing, rhonchi, rales, or stridor. No respiratory distress, speaks in full sentences. HEART: Regular rate and rhythm. No murmur heard. SKIN: Warm, no rash. Clammy NEURO: Alert and oriented x3. PSYCH: Normal mood and affect Course Course Emergency Course: Patient is aware of diagnosis, understands and agrees to treatment plan. Anticipatory guidance given. Patient agrees to follow-up as directed and is aware of reasons to seek care at the emergency department. Portions of this record may have been created with voice recognition software Level of Care: [facility] Visit MDM Differential Diagnosis Differential Diagnosis: I evaluated this patient in the [facility] care. History is obtained from patient who is an independent historian and physical exam was performed.? Available medical records were reviewed. ? Exam findings and relevant testing show no acute concerns or changes; patient is non-toxic appearing and is in no distress. ? Differential diagnosis considered: [place] virus, strep pharyngitis, allergic rhinitis, upper respiratory tract infection, sinusitis, rhinosinusitis, nasopharyngitis. viral pharyngitis, otitis media, otitis externa, pneumonia, bronchitis, viral cough syndrome, viral syndrome, and influenza. Differential diagnosis and treatment plan were discussed with the patient. Patient agrees with discussion and after shared medical decision making agrees with plan of care. All questions were answered to the patient's satisfaction. Patient is appropriate for outpatient treatment and follow-up. Discharge Plan Discharge Clinical Impression: Viral illness Patient Disposition: Home Condition: Stable Instructions: Viral Syndrome (ED) Additional Instructions: Your rapid COVID and flu tests are negative. It could be too soon to test positive, consider getting a test from [facility] in the next 1-2 days. Your rapid strep swab was negative today at [facility]. A throat culture will be sent to the laboratory for further testing. If the test is positive, you will receive a phone call within 48 hours and an appropriate antibiotic will be initiated at that time. Your symptoms are likely due to a viral illness, which is not treated with antibiotics. Viral symptoms can be present for up to a few weeks. -Take strict precautions to prevent the spread of your virus. Be diligent about covering your cough (even when you are alone) and washing your hands frequently. -You may contagious until you have been symptom and/or fever free for 24 hours without fever reducing medicine -Alternate Ibuprofen and Tylenol for pain and fever relief (per package directions) -Some Cough medicines may make you drowsy, do not take it if you have to make important decisions, drive, or work. -Drink plenty of fluid - drink fluid with electrolytes such as Gatorade or other oral re-hydration solution. Avoid caffeine, which can make dehydration worse. -Get plenty of rest to help your body heal. -Use a cool mist humidifier for chest and nasal congestion. -Eat RAW honey or use cough drops to ease throat discomfort -Do not smoke or expose children to secondhand smoke -Wash your hands frequently. -Please follow-up with your primary care doctor in the next 1-2 days if your symptoms do not improve. -If you have any worsening of symptoms or any other concerns please go to the ED immediately. -Please take medications as prescribed and continue taking your home medications as usual. Patient Language: Samoan Prescriptions: New pseudoephedrine HCl [12 Hour Decongestant] 120 mg tablet extended release 120 mg PO Q12H PRN (Reason: nasal congestion) Qty: 12 0RF dextromethorphan-guaifenesin [Mucinex DM] 60-1,200 mg tablet extended release 12 hr 1 tablet PO Q12H Qty: 12 0RF No Action lisinopril-hydrochlorothiazide 10-12.5 mg tablet 1 tablet DAILY Follow-up/Referrals: John,Eric Mckeon MD [Primary Care Provider] Time of Disposition: 12:47
[2025-08-10 12:13] VITALS: BP 134/71; PULSE 63; RESP 18; TEMP 36.2; O2SAT 99
[2025-08-10 12:41] LABS: EDCOVIDSCREEN Negative (Negative); EDINFLUASCREEN Negative (Negative); EDINFLUBSCREEN Negative (Negative)
[2025-08-10 12:49] LABS: EDSTREPNEGPOS1 Negative (Negative)
== END 2025-08-10 12:51 | disposition home or self-care (01) ==
PROVIDERS: Emergency Provider Nurse Practitioner; PCP Family Medicine
DX: B34.9 Viral infection, unspecified (principal); Z20.822 Contact with and (suspected) exposure to COVID-19; I10 Essential (primary) hypertension; M19.90 Unspecified osteoarthritis, unspecified site; L40.9 Psoriasis, unspecified; E66.01 Morbid (severe) obesity due to excess calories; Z68.35 Body mass index [BMI] 35.0-35.9, adult; Z87.891 Personal history of nicotine dependence
CPT/HCPCS: 87081; 87426; 87804; 87880; 99213; G0463